=== PATIENT | female | born 1965 | race Caucasian/White ===

== ENCOUNTER → 2020-11-11 10:28 | Outpatient (BNVA) | payer MEDICARE, MEDICAID, SELFPAY | PROVIDERS: Family Provider Family Medicine; PCP Family Medicine; Visit Provider Family Medicine | DX: E01.0 Iodine-deficiency related diffuse (endemic) goiter (principal) | CPT/HCPCS: 80053; 84439; 84443; 84480; 85025 ==

== ENCOUNTER → 2020-11-12 09:52 | Outpatient (BNVA) | payer MEDICARE, MEDICAID, SELFPAY | PROVIDERS: Family Provider Family Medicine; PCP Family Medicine; Visit Provider Family Medicine | DX: E01.0 Iodine-deficiency related diffuse (endemic) goiter (principal); D64.9 Anemia, unspecified; F17.219 Nicotine dependence, cigarettes, with unspecified nicotine-induced disorders | CPT/HCPCS: 82728; 83550 ==

== ENCOUNTER 2020-11-23 10:45 | Outpatient (CLI) | payer MEDICARE, MEDICAID, SELFPAY ==
--- NOTE | 2020-11-23 11:00 | US_ITS ---
WS: [id number] ULTRASOUND THYROID TECHNIQUE: Ultrasound of the thyroid. CLINICAL INFORMATION: thyromegaly COMPARISON: None. FINDINGS: Thyroid: Right and left thyroid lobes are normal in size and echotexture. Slightly hypoechoic solid n odule left mid thyroid measuring 10 x 9 mm. Additional tiny cystic lesion measuring 3 x 2 mm in the l eft thyroid. Right thyroid lobe: 3.2 cm x 1.0 cm x 1.6 cm Left thyroid lobe: 3.0 cm x 1.0 cm x 1.1 cm. Isthmus: 0.3 mm. Cervical lymphadenopathy: A few prominent lymph nodes nonspecific but likely reactive US/US thyroid 76050 IMPRESSION: 1. Slightly hypoechoic solid left mid thyroid nodule measuring 10 x 9 mm. Devin mmend 12 month follow-up. 2. Additional tiny cystic lesion left thyroid measuring 3 x 2 mm likely incide ntal. 3. A few prominent cervical and submandibular lymph nodes likely reactive
== END 2020-11-23 10:46 | disposition home or self-care (01) ==
LOC: RAD 10:49
PROVIDERS: PCP Family Medicine; Visit Provider Family Medicine
DX: E01.0 Iodine-deficiency related diffuse (endemic) goiter (principal); E07.9 Disorder of thyroid, unspecified
CPT/HCPCS: 76536

== ENCOUNTER → 2020-12-30 09:42 | Outpatient (BNVA) | payer MEDICARE, MEDICAID, SELFPAY | PROVIDERS: PCP Family Medicine; Visit Provider Otolaryngology | DX: R05 Cough (principal) | CPT/HCPCS: 87635 ==

== ENCOUNTER 2021-01-03 06:00 | Day surgery (SDC) | payer MEDICARE, MEDICAID, SELFPAY ==
--- NOTE | 2021-01-03 10:29 | XRR_ITS ---
PROCEDURE INFORMATION: Exam: XR Chest Exam date and time: 01/03/2021 1:07 PM Age: 55 years old Clinical indication: Pre-operative exam; Cardiovascular screening and respiratory screening exam; Additional info: Preop TECHNIQUE: Imaging protocol: XR of the chest Views: 2 views. COMPARISON: No relevant prior studies available. FINDINGS: Lungs: The right hilum is elevated. The minor fissure is likely elevated as well. There is central opacity in the right upper lobe. The trachea is deviated to the right. There is a small right hemithorax compared to the left. Pleural spaces: No pleural effusion or pneumothorax. Heart/Mediastinum: The heart is not enlarged. There is a right hilar mass with suspected extension into the mediastinum as there is concentric narrowing of the right mainstem bronchus. Bones/joints: No acute osseous abnormality. Soft tissues: There is a left epicardial fat pad. XR/XR chest 2V* [id number] IMPRESSION: Suspect central malignancy involving the right hilum and adjacent mediastinum, with narrowing of the right mainstem bronchus, and secondary volume loss with or without postobstructive pneumonitis in the right upper lobe.
--- NOTE | 2021-01-03 10:29 | ECG_ITS ---
[facility] Test Date: 2021-01-03 Pat Name: Caridad Thakkar Department: Room: Gender: Female Senior Php Software Developer: : [id number] Requested By: Hugo Jarvis Order Number: [id number] Reading MD: RANDY PINON Measurements Intervals [place] Rate: 89 P: 65 LA: 165 QRS: 19 QRSD: 81 T: 62 QT: 344 QTc: 419 Interpretive Statements SINUS RHYTHM LEFT ATRIAL ENLARGEMENT [-0.15mV P WAVE IN V1/V2] No previous ECG available for comparison Electronically Signed On 01-03-2021 18:31:15 AGING ROOM OPERATOR by RANDY PINON [id number]
[2021-01-03 10:40] VITALS: BMI 17.6
--- NOTE | 2021-01-03 12:44 | ANES.PREANE2 ---
Pre-Anesthetic Assessment Pre-Anesthetic Assessment: Height/Weight: Height 1.6 m Weight 45.359 kg Proposed Procedure: Operation Date: 01/05/21 11:10 Proposed Procedures p Direct Laryngoscopy with Biopsies R49.0 20073(Not Applicable) - Hugo Pennington MD Was Beta Otilia taken within 24 hours: N/A Social: Social History: Tobacco and No alcohol Exam: Pre-Anes Outpt Exam: alert, oriented x 3 and regular rate & rhythm Additional Exam Findings (including area of procedure): rhonchi Airway: Submandibular: WNL Cervical ROM: WNL MP: 2 Dentition: Chipped Additional comments: very poor dentition, hoarseness Pulmonary: Pulmonary: COPD, Cough and BRAY Hepatic: Hepatic: Hepatitis (C) GI: GI: GERD Musc/skel: Comments: Chronic pain/opioid Neuropsych: Neuropsych: Anxiety and Depression Anesthetic Plan: ASA status: 3 Risk of > 500 ml blood loss (7ml/kg in children): No PFSH Anesthesia PFSH: Medical History Anxiety and depression Chronic low back pain Gastroesophageal reflux disease with ulceration Hepatitis C Microscopic hematuria Surgical History H/O section H/O: hysterectomy Family History Other CAD (coronary artery disease) Cancer Diabetes Social History Smoking and tobacco status: current every day smoker cigarettes Packs smoked per day: 0.25 Years cigarettes smoked: 40 Alcohol intake: former Former alcohol use details: 25 years Marital status: Current occupational status: disabled Special elida needs: No Data Anesthesia Cardiac Studies: No Data to Display
== END 2021-01-03 06:01 | disposition home or self-care (01) ==
PROVIDERS: PCP Family Medicine; Visit Provider Otolaryngology
DX: Z01.818 Encounter for other preprocedural examination (principal); R49.0 Dysphonia; J44.9 Chronic obstructive pulmonary disease, unspecified; Z86.19 Personal history of other infectious and parasitic diseases; K21.9 Gastro-esophageal reflux disease without esophagitis; G89.29 Other chronic pain; Z79.891 Long term (current) use of opiate analgesic; F41.9 Anxiety disorder, unspecified; F32.9 Major depressive disorder, single episode, unspecified; Z82.49 Family history of ischemic heart disease and other diseases of the circulatory system; Z83.3 Family history of diabetes mellitus; F17.210 Nicotine dependence, cigarettes, uncomplicated
CPT/HCPCS: 71046; 93005

== ENCOUNTER 2021-01-10 10:01 | Outpatient (CLI) | payer MEDICARE, MEDICAID, SELFPAY ==
[2021-01-10] MEDS: iohexol 300 mg/mL 100 mL Btl IV (10:17)
--- NOTE | 2021-01-10 10:30 | CT_ITS ---
WS: [id number] CT scan of the chest with IV contrast, additional two-dimensional coronal and sagittal reconstruction was performed. 01/10/2021 Clinical Data: right lung mass Comparison: Chest x-ray, 01/03/2021. DLP: 519.[address] scans at [facility] use at least one of these dose optimization techniques: automat ed exposure control; mA and/or kV adjustment per patient size (includes targeted exams where dose is matched to clinical indication); or iterative reconstruction. Findings: There is a 2.0 x 4.0 right upper lobe mass causing right upper lobe atelectasis. There is narrowing o f the right upper lobe bronchus and shift of the heart and mediastinum from left to right. There is a subcarinal soft tissue density which is probably an enlarged lymph node measuring 3.4 cm. The left l lucy shows no nodules, masses or effusions. The heart size is normal with no pericardial effusion. The pulmonary arterial system and thoracic aorta demonstrate no abnormalities or dilatations. No pneumon ia or pneumothorax is seen. There is no axillary adenopathy. The upper abdomen demonstrates no liver abnormalities, adrenal enlargement or upper abdominal abdomen adenopathy. The liver is only partly imaged. The visualization of the gallbladder, spleen and pancre as shows no abnormalities. The superior poles of the kidneys are unremarkable. Bones of the thorax demonstrate no metastatic lesions. CT/CT chest w con* [id number] Impression: 1. Right upper lobe mass causing peripheral atelectasis and shift of the heart and mediastinum from left to right most consistent with cancer of the lung. 2. Subcarinal adenopathy.
== END 2021-01-10 10:02 | disposition home or self-care (01) ==
LOC: RADWPI 10:02
PROVIDERS: PCP Family Medicine; Visit Provider Otolaryngology
DX: R91.8 Other nonspecific abnormal finding of lung field (principal); R59.0 Localized enlarged lymph nodes
CPT/HCPCS: 71260; Q9967

== ENCOUNTER 2021-01-28 10:00 | Outpatient (CLI) | payer MEDICARE, MEDICAID, SELFPAY ==
[2021-01-28 10:36] LABS: Basophils # 0.1 10^3/uL (0.0-0.1); Basophils % 0.7 %; Eosinophils # 0.2 10^3/uL (0.0-0.8); Hematocrit 36.4 % (37.0-47.0); Hemoglobin 11.3 g/dL (11.5-15.3); Lymphocytes # 1.3 10^3/uL (0.8-4.8); Lymphocytes % 17.1 %; Mean Corpuscular Hemoglobin 25.7 pg (28.0-34.0); Mean Corpuscular Volume 82.7 fL (81-99); Mean Platelet Volume 8.9 fL (7.4-10.4); Monocytes # 0.5 10^3/uL (0.2-0.9); Monocytes % 6.4 %; Neutrophils # 5.53 10^3/uL (1.8-7.7); Neutrophils % 73.4 %; Nucleated Red Blood Cells % 0 %; Platelet Count 382 10^3/cmm (130-400); Red Cell Distribution Width 15.8 % (12.1-15.1); White Blood Count 7.5 10^3/uL (4.0-10.0)
[2021-01-29 12:11] LABS: Alpha 1 Antitrypsin 275 mg/dL (83-199)
[2021-01-31 16:32] LABS: Alternaria Alternata (M6) Ige <0.10 kU/L; Alternaria Class 0; Bermuda Class 0; Bermuda Grass (G2) Ige <0.10 kU/L; Cat Dander (E1) Ige 0.42 kU/L; Cat Dander Class 1; Common Ragweed (Short) (W1) Ig <0.10 kU/L; D. Farinae Class 0; Dermatophagoides Class 0; Dermatophagoides Farinae (D2) <0.10 kU/L; Dermatophagoides Pteronyssinus <0.10 kU/L; Dog Dander (E5) Ige 0.76 kU/L; Dog Dander Class 2; Elm (T8) Ige <0.10 kU/L; Elm Class 0; English Plantain (W9) Ige <0.10 kU/L; English Plantain Class 0; House Dust (Hollister- Stier) 0.21 kU/L; House Dust Class 0/1; Immunoglobulin E 576 kU/L (<OR=114); Immunoglobulin E 586 kU/L (<OR=114); Johnson Grass (G10) Ige <0.10 kU/L; Johnson Grass Cl 0; June Grass Class 0; June Grass(Kentucky Blue) (G8) <0.10 kU/L; Lamb'S Quarters Class 0/1; Maple (Box Elder) (T1) Ige <0.10 kU/L; Maple Class 0; Meadow Fescue (G4) Ige <0.10 kU/L; Meadow Fescue Class 0; Mucor Racemosus Class 0; Oak (T7) Ige <0.10 kU/L; Oak Class 0; Orchard Grass (Cocksfoot) (G3) <0.10 kU/L; Penicillium Class 0; Penicillium Notatum (M1) Ige <0.10 kU/L; Perennial Rye Grass (G5) Ige <0.10 kU/L; Perennial Rye Grass Class 0; Ragweeed Class 0; Rough Marsh Elder (W16) Ige <0.10 kU/L; Rough Marsh Elder Class 0; Sweet Vernal Class 0; Sweet Vernal Grass (G1) Ige <0.10 kU/L; Timothy Grass (G6) Ige <0.10 kU/L; Timothy Grass Class 0
[2021-02-02 14:27] LABS: Aspergillus Fumigatus, Igg Ab, 7.5 mg/L (<=102)
== END 2021-01-28 10:01 | disposition home or self-care (01) ==
PROVIDERS: PCP Family Medicine; Visit Provider Internal Medicine Pulmonary Disease
DX: R06.02 Shortness of breath (principal); F17.200 Nicotine dependence, unspecified, uncomplicated; J44.9 Chronic obstructive pulmonary disease, unspecified
CPT/HCPCS: 36415; 82103; 82785; 85025; 86003; 87635

== ENCOUNTER 2021-02-01 14:30 | Outpatient (CLI) | payer MEDICARE, MEDICAID, SELFPAY ==
--- NOTE | 2021-02-01 14:49 | PFTS_ITS ---
Date of Study:02/01/21 Date of Dictation: MECHANICS: Forced vital capacity (FVC) is reduced. Forced expiratory volume in one second (FEV1) is reduced. FEV1/FVC is reduced. FLOW VOLUME LOOP: Reduced flow at all lung volumes with scooping. LUNG VOLUMES: Total lung capacity (TLC) is normal. Residual volume (RV) is increased. DIFFUSING CAPACITY FOR CARBON MONOXIDE: Moderately reduced. INTERPRETATION: The pulmonary function tests are consistent with moderate airflow obstruction. There is no significant postbronchodilator response. Lung volumes are consistent with air trapping. Gas exchange (DLCO) is moderately reduced. MTDD
== END 2021-02-01 14:31 | disposition home or self-care (01) ==
LOC: RT 14:33
PROVIDERS: PCP Family Medicine; Visit Provider Internal Medicine Pulmonary Disease
DX: J45.42 Moderate persistent asthma with status asthmaticus (principal)
CPT/HCPCS: 94060; 94726; 94729; J7611

== ENCOUNTER 2021-02-03 05:49 | Day surgery (SDC) | payer MEDICARE, MEDICAID, SELFPAY ==
[2021-02-01 12:13] VITALS: BMI 18.6
[2021-02-03] VITALS (9 sets, daily range): BP systolic 97–132; BP diastolic 61–77; PULSE 81–108; RESP 12–20; TEMP 36.6–37.2; O2SAT 93–98
[2021-02-03] MEDS: sodium chloride 0.9% 1,000 ML 30 ML IV (06:31)
--- NOTE | 2021-02-03 06:41 | ANES.PREANE2 ---
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 Bilateral Proposed Procedure: Operation Date: 02/03/21 07:00 Proposed Procedures p Ebus(Not Applicable) - Bipneena William MD Familial anesthetic complications: None Was Beta Otilia taken within 24 hours: N/A Was Clonidine taken within 24 hours: N/A Last intake: Intake Last Liquid Date 02/02/21 Last Liquid Time 23:00 Last Solid Date 02/02/21 Last Solid Time 18:30 Social: Social History: Tobacco and No alcohol Exam: Pre-Anes Outpt Exam: alert, oriented x 3, clear to auscultation bilaterally and regular rate & rhythm Airway: Cervical ROM: WNL MP: 2 Dentition: Chipped and Other (poor dentition) Additional comments: ENT scope shows swollen irregular vocal cords, glidescope Pulmonary: Pulmonary: COPD Comments: RUL lesion w/ L -> R mediastinal shift, no difficulty breathing laying flat Hepatic: Hepatic: Hepatitis (hep C) GI: GI: GERD Musc/skel: Comments: chronic pain on methadone Anesthetic Plan: ASA status: 4 Anesthesia: General Other: Glidescope Risk of > 500 ml blood loss (7ml/kg in children): No Other Pertinent Information: Patient complained her R leg was numb suddenly, after placing IV, and stated she had poor circulation. Strong pulses were palpated in the feet (dorsalis pedis) and posterior tibial. Meds/Allergies Current Medications: Current Medications Generic Name Dose Route Start Last Admin Trade Name Freq PRN Reason Stop Dose Admin Sodium Chloride 1,000 mls @ 30 ml s/hr 02/03/21 06:00 02/03/21 06:31 Sodium Chloride 0.9% IV 02/04/21 05:59 30 mls/hr .Q24H TANVI Administration PFSH Anesthesia PFSH: Medical History (Updated 01/24/21 @ 14:42 by Reymundo Murillo MD) Anxiety and depression Chronic low back pain Gastroesophageal reflux disease with ulceration Hepatitis C Microscopic hematuria Surgical History H/O section H/O: hysterectomy Family History Other CAD (coronary artery disease) Cancer Diabetes Social History Smoking and tobacco status: current every day smoker cigarettes Packs smoked per day: 0.50 Years cigarettes smoked: 40 Quit status (tobacco): considering quitting Second hand smoke exposure: Yes Smoking risk assessment/counseling performed?: Yes Alcohol intake: former Former alcohol use details: 25 years Lives independently: Yes Household members: spouse Housing: House Marital status: Life Partner service: No Current occupational status: disabled Pets and animals: Yes History of recent travel: No Current gender identity: Female Special elida needs: No Data Anesthesia Cardiac Studies: No Data to Display
--- NOTE | 2021-02-03 06:52 | P.HP_ITS ---
Same Day Surgery H&P Indication for Procedure/HPI DATE OF PROCEDURE: February 03, 2021 CHIEF COMPLAINT/INDICATIONFOR SURGICAL PROCEDURE: This is a 55-year-old lady coming in for bronchoscopic evaluation for suspected lung cancer. 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 Operation Date: 02/03/21 07:00 Proposed Procedures p Ebus(Not Applicable) - Sarah William MD This is a 55-year-old lady who was referred to me for bronchoscopic evaluation after she was recently found to have right upper lobe lung mass with possible endobronchial lesion and significant midsternal hilar lymphadenopathy. The patient has an extensive history of smoking. Medications/Allergies* Home Medications Medication Instructions Recorded Confirmed Type methadone 40 mg soluble tablet 90 mg PO DAILY tab 04/07/20 02/01/21 History cetirizine 10 mg capsule 10 mg PO DAILY 10/28/20 02/01/21 History diphenhydramine HCl 25 mg tablet 25 mg PO QID PRN 10/28/20 02/01/21 History omeprazole 20 mg capsule,delayed 20 mg PO DAILY 10/28/20 02/01/21 History release Allergies/Adverse Reactions Allergy/AdvReac Type Severity Reaction Status Date / Time latex Allergy itching Verified 02/03/21 06:02 azithromycin [From Zithromax] AdvReac Mild unknown Verified 02/03/21 06:02 nalbuphine [From Nubain] AdvReac Mild hives Verified 02/03/21 06:02 Sulfa (Sulfonamide AdvReac Mild unknown Verified 02/03/21 06:02 Antibiotics) Current Medications: Generic Name Dose Route Start Last Admin Trade Name Freq PRN Reason Stop Dose Admin Sodium Chloride 1,000 mls @ 30 mls/hr 02/03/21 06:00 02/03/21 06:31 Sodium Chloride 0.9% IV 02/04/21 05:59 30 mls/hr .Q24H TANVI Administration Pertinent History/Comorbid Conditions* Medical History (Updated 01/24/21 @ 14:42 by Reymundo Murillo MD) Anxiety and depression Chronic low back pain Gastroesophageal reflux disease with ulceration Hepatitis C Microscopic hematuria Surgical History (Updated 04/07/20 @ 09:55 by Mallory Gutiérrez DO) H/O section H/O: hysterectomy Family History (Updated 04/07/20 @ 09:50 by Dora Hernandez LPN) Diabetes CAD (coronary artery disease) Cancer Social History Smoking and tobacco status: current every day smoker cigarettes Packs smoked per day: 0.50 Years cigarettes smoked: 40 Quit status (tobacco): considering quitting Second hand smoke exposure: Yes Smoking risk assessment/counseling performed?: Yes Alcohol intake: former Former alcohol use details: 25 years Lives independently: Yes Household members: spouse Housing: House Marital status: Life Partner service: No Current occupational status: disabled Pets and animals: Yes History of recent travel: No Current gender identity: Female Special elida needs: No Pertinent Exam Findings alert, oriented x 3, clear to auscultation bilaterally and regular rate & rhythm Recommendations Surgery/Procedure today Coding Level of Care Code Acute Instrumentation Designer for Dunia Moore
[2021-02-03] MEDS: lidocaine 1% INJ 20 mL SUBCUT (07:40)
--- NOTE | 2021-02-03 08:09 | P.PCN_ITS ---
PACU note PACU note: VSS, Good respiratory effort, report to ADULT SERVICES LIBRARIAN Post-Anesthesia Exam: awake
--- NOTE | 2021-02-03 08:09 | PM.PACU ---
PACU note PACU note: VSS, Good respiratory effort, report to HAULAGE ENGINE OPERATOR Post-Anesthesia Exam: awake
--- NOTE | 2021-02-03 08:34 | P.OP_ITS ---
Operative Report Date of procedure: February 03, 2021 Pre-op Diagnosis: Suspected lung cancer Post-op diagnosis: same Brief History: This is a 55-year-old lady with recently identified right upper lobe lung mass coming in for bronchoscopic evaluation and staging of lung cancer. Procedure: Name of the procedure: Bronchoscopy with inspection of the airway, possible bronchoalveolar lavage, endobronchial biopsies, transbronchial biopsies, endobronchial ultrasound-guided transbronchial needle aspiration of lymph nodes and control of bleeding. Indication: Right upper lobe lung mass with mediastinal hilar lymphadenopathy Anesthesia: General anesthesia. Local anesthesia: The indira in the right and left mainstem bronchi were anesthetized with 1% lidocaine, 3 mL. Description of the procedure: The procedure was explained to the patient and the consent was obtained. The patient was brought to the OR. The patient underwent endotracheal intubation for general anesthesia. Following induction of general anesthesia, the bronchoscope was advanced through the ET tube. The lower trachea appeared to be mildly erythematous, no endotracheal lesion was seen. The indira was splayed. The indira, the right and left mainstem bronchi are anesthetized with 1% lidocaine. In a systematic manner bilateral bronchial tree was then examined. The bronchoscope was advanced into the left mainstem br onchus. There was no erythema,mucus or areas of cobblestoning. The left upper lobe, lingula and left lower lobe bronchi were examined up to the third subsegmental level and no abnormalities were identified. The bronchoscope was then introduced into the right mainstem bronchus. There was visible mucosal irregularity starting very close to the indira there was also narrowing of the right mainstem bronchus. The mucosal lesion bled very easily to touch. This was consistent with malignancy. The bronchoscope was not used to examine every segment in the right lung due to concerns of bleeding. The endobronchial ultrasound was introduced through the ET tube. Mediastinal and hilar lymphadenopathy was identified with the ultrasound. Fine-needle aspiration was performed from station 7 lymph nodes. Multiple samples were obtained. Samples: 1. The fine-needle aspiration from station 7 lymph node was sent for histopathology. Complications: There was no immediate complications.
--- NOTE | 2021-02-03 13:29 | ANE.PACU2 ---
Inpatient post-anesthesia follow up: Airway intact: Yes Vital signs: Temperature 98.0 F Pulse Rate 86 Respiratory Rate 18 Blood Pressure 132/73 Pulse Oximetry 98 Oxygen Delivery Me thod Room Air Oxygen Flow Rate 8 Fraction of Inspir ed Oxygen Hydration adequate: Yes Nausea and vomiting: No Pain level: 2 Mental status: Baseline
[2021-02-11 08:56] LABS: PD-L1 (Clone 22C3) by IHC BBPL See Report
== END 2021-02-03 09:09 | disposition home or self-care (01) ==
PROVIDERS: PCP Family Medicine; Visit Provider Internal Medicine Critical Care Medicine
PROC: BB4BZZZ Ultrasonography of Pleura (ICD-10-PCS; principal; 2021-02-03 07:00)
DX: C34.90 Malignant neoplasm of unspecified part of unspecified bronchus or lung (principal); C77.9 Secondary and unspecified malignant neoplasm of lymph node, unspecified; J44.9 Chronic obstructive pulmonary disease, unspecified; Z86.19 Personal history of other infectious and parasitic diseases; K21.9 Gastro-esophageal reflux disease without esophagitis; F41.9 Anxiety disorder, unspecified; F32.9 Major depressive disorder, single episode, unspecified; Z82.49 Family history of ischemic heart disease and other diseases of the circulatory system; Z83.3 Family history of diabetes mellitus; F17.210 Nicotine dependence, cigarettes, uncomplicated; Z79.891 Long term (current) use of opiate analgesic; G89.29 Other chronic pain; M54.9 Dorsalgia, unspecified
CPT/HCPCS: 31625; 31652; 80500; 88305; 88342; J1100; J2370; J2405; J2704; J2710; J3010; J3490; J7030

== ENCOUNTER 2021-02-09 11:57 | Outpatient (CLI) | payer MEDICARE, MEDICAID, SELFPAY ==
[2021-02-09 14:28] LABS: Basophils # 0.1 10^3/uL (0.0-0.1); Basophils % 1.1 %; Eosinophils # 0.4 10^3/uL (0.0-0.8); Eosinophils % 4.9 %; Hematocrit 35.6 % (37.0-47.0); Lymphocytes # 2.3 10^3/uL (0.8-4.8); Lymphocytes % 31.3 %; Mean Corpuscular HGB Conc 30.9 g/dL (30.0-36.0); Mean Corpuscular Hemoglobin 25.9 pg (28.0-34.0); Mean Corpuscular Volume 83.8 fL (81-99); Mean Platelet Volume 8.9 fL (7.4-10.4); Monocytes # 0.6 10^3/uL (0.2-0.9); Monocytes % 8.4 %; Neutrophils # 3.96 10^3/uL (1.8-7.7); Nucleated Red Blood Cells % 0 %; Platelet Count 376 10^3/cmm (130-400); Red Blood Count 4.25 10^6/uL (4.1-5.3); Red Cell Distribution Width 16.2 % (12.1-15.1); White Blood Count 7.3 10^3/uL (4.0-10.0)
[2021-02-09 15:05] LABS: Alanine Aminotransferase 10 U/L (0-33); Albumin Level 4.4 g/dL (3.5-5.2); Alkaline Phosphatase 119 IU/L (35-105); Anion Gap 14.9 (5-19); Aspartate Amino Transferase 11 U/L (0-32); Blood Urea Nitrogen 13 mg/dL (6-20); Carbon Dioxide 26 mmol/L (22-29); Chloride 97 mmol/L (98-107); Globulin 3.3 g/dL (1.3-4.6); Glomerular Filtration Rate 86.2 mL/min (90-130); Glucose 78 mg/dL (65-115); Osmolality Calculated 277 mOsm/kg (285-295); Potassium 3.9 mmol/L (3.5-5.1); Sodium 134 mmol/L (136-145); Total Bilirubin 0.2 mg/dL (0.15-1.2); Total Protein 7.7 g/dL (6.6-8.7)
--- NOTE | 2021-02-09 20:00 | ONC CON_ITS ---
Dr. Tadeo New Patient Note Patient: Caridad Thakkar Unit #: [id number]: 1965 Dicatated By: Sean Tadeo M.D.Date of Visit: Feb 09, 2021 Onc MED New Patient/Consult Referring Physician: Reymundo Murillo Chief Complaint: Lung cancer. 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 She had presented initially to Dr. Pennington with complaints of swelling in her throat. Her chest x-ray showed elevated right hilum in association with a central opacity in the right upper lobe. The findings were suspicious for central malignancy involving the right hilum and adjacent mediastinum. Further evaluation with chest CT on 01/10/2021 showed a 2.0 x 4.0 right upper lobe mass with associated right upper lobe atelectasis. There was narrowing of the right upper lobe with left shift of the mediastinum from left to right. A subcarinal soft tissue density measuring 3.4 cm was felt to be consistent with enlarged lymph node. The upper abdominal structures appeared unremarkable. She had pulmonary consultation with Dr. Murillo on 01/24/2021. Staging PET/CT on 01/29/2021 showed FDG avid right upper lobe mass measuring 2.1 x 3.7 cm, SUV 16.9, consistent with primary malignancy. There was evidence of local metastatic disease in the subcarinal territory measuring 3.0 x 2.2 cm with SUV 14.9. A right paratracheal node measuring 1.9 cm also was consistent with metastatic disease. A right lower lung lesion adjacent to the pericardium measuring 1.7 cm was FDG avid with SUV 11.6 cm, consistent with a satellite nodule. On 02/03/2021 she underwent bronchoscopy with EBUS. There was noted to be visible mucosal irregularity starting very close to the indira with narrowing of the right mainstem bronchus. The appearance was consistent with malignancy. Endobronchial and transbronchial biopsies were obtained. EBUS showed evidence of mediastinal and hilar lymphadenopathy. FNA biopsy was obtained from a station 7 lymph node. Pathology on the station 7 lymph node biopsy were positive for squamous cell carcinoma. The PD-L1 expression to IHC 22C3 was < 1%. She is seen now for further management of the lung cancer. She has not been feeling good. She says she feels hyper, but she is short of breath with any activity and she has very limited activity tolerance. She is still able to walk around and do some light work. ECOG score is 1. Her appetite has not been not good. She has had a weight loss of at least 25 pounds over the past 3 months. She had some fever a few months ago, but none since then. She does report feeling hot and having sweating every night. She has sore throat but she swallows okay. She was having cough for 2 straight months, but it has improved, and she now coughs just occasionally. She has had some pain in the chest area. She has had no hemoptysis. She does not complain of nausea. Her acid reflux is adequately managed with famotidine. She does have constipation. She complains that she does not void a lot. In the past she has had blood in her urine. She has pain in her shoulders and she has chronic back pain. She is on methadone, which she obtains through a methadone clinic. She has occasional headache and she occasionally has dizziness. She has had numbness in her arms and legs intermittently. She does report having anxiety and depression. Recently she has been having panic attacks. Past Medical History: Her medical history includes anxiety, chronic low back pain, chronic obstructive pulmonary disease (Treated), depression, gastroesophageal reflux disease, hepatitis C, and history of substance abuse. Past Surgical History: She underwent bronchoscopy with endobronchial and transbronchial biopsies and EBUS with FNA biopsies on 02/03/2021. Her other surgical/procedural history includes section in 1982, in 1986, and in 1992, hysterectomy with unilateral oophorectomy in 2006, and laparoscopic surgery for ovarian cyst in 1994. Medications: Albuterol Sulfate 1 - 2 Puff(s) (of 108 (90 base) mcg/act) Aerosol Powder, Breath Activated Inhalation q 4 hours PRN, Benadryl Allergy 2 (25 mg) Tablet Oral b.i.d., Cetirizine HCl 1 (10 mg) Tablet Oral daily, Famotidine 1 (20 mg) Tablet Oral four times a day PRN, Ibuprofen 1 (200 mg) Capsule Oral t.i.d. PRN, Iron 1 (325 (65 fe) mg) Tablet Oral daily, Methadone HCl 1 (90 mg) Tablet Soluble Oral daily, Mirtazapine 1 (30 mg) Tablet Oral daily, Senna S 1 (8.6-50 mg) Tablet Oral t.i.d., Symbicort 1 Puff(s) (of 160-4.5 mcg/act) Aerosol Inhalation b.i.d. Allergies: Azithromycin, Latex, Nalbuphine HCl, and Sulfa Antibiotics. Social History: Ms. Thakkar is and she is a disabled. She has a history of smoking for 40 years, previously up to 1-1/2 packs of cigarettes daily. She is now down to smoking 1/2 pack/day. She has a history of heavy drinking. She quit 17 years ago. She had used IV drugs at around age 15 or 16. She subsequently developed opiate dependence. She is now attending a methadone clinic. Family History: Father of stroke at age 75. Mother had breast cancer and pancreatitis. She also had diabetes. She at age 34. One brother and 2 sisters are in good health. A son at age 29, apparently due to accidental overdose. Review Of Symptoms: Constitutional - She has limited activity tolerance, but she is able to walk around and do light work at home. She does not have good appetite. She has had a weight loss of at least 25 pounds over the past 3 months. She had a little fever a few months ago, but none recently. She has been getting hot and having sweating every night. ECOG score is 1, Eyes - She has had some decline in visual acuity, ENMT - No hearing loss. She does have tinnitus and she complains that her ears hurt. No sinus congestion/drainage. No mouth sores. She does complain of sore throat. No difficulty swallowing, Hematologic/Lymphatic - No abnormal bruising or bleeding, Respiratory - She is short of breath with any activity. She was having bad cough for 2 months straight, but she now coughs just occasionally. No pleuritic pain or hemoptysis, Cardiovascular - She has some chest pain. No palpitations, Gastrointestinal - No nausea or vomiting. Her acid reflux is adequately managed with famotidine. No diarrhea. She has constipation. No blood in the stool or black stools, Genitourinary (F) - She has not have a lot of urine output. In the past she has had blood in her urine. No dysuria or urinary frequency. No urgency or incontinence, Musculoskeletal - She has pain in her shoulders and she has chronic back pain. She is on disability, Integumentary - No skin rash, Neurologic - She has headache occasionally and she occasionally has dizziness. She has numbness intermittently in her arms and legs. No other focal neurologic symptoms, Psychiatric - She has anxiety and depression. She has chronic insomnia. Vital Signs: Performed on Feb 09, 2021 13:07: 10, 4, 19.02, 1.45 sq.m, 62 in, 95 % (LOW), 91 /min, 18 /min, 100/68 mm(hg), 97.3 F (LOW), and 104 lbs (HIGH). Physical Examination: Constitutional - She appears chronically ill, Eyes - Sclerae nonicteric. Conjunctivae clear, ENMT - No lesions noted in the oral cavity, Neck - No mass or thyromegaly, Hematologic/Lymphatic - No cervical, clavicular, or axillary adenopathy, Respiratory - Lungs show diminished breath sounds bilaterally. There are coarse upper airway sounds on the right, Cardiovascular - Heart rhythm is regular. There is a I/ systolic murmur. There is no gallop or rub noted, Abdomen - Soft and non-tender. Liver and spleen are not enlarged. There is no abdominal mass or ascites noted and there is no inguinal adenopathy, Back/Spine - No spine or CVA tenderness noted, Extremities - No edema. Pedal pulses are palpable bilaterally, Integumentary - No rashes. No suspicious skin lesions noted, Neurologic - No focal neurologic deficits noted. Lab/Imaging: Laboratory studies from October 2020 included CBC showing hemoglobin 10.8 g, white blood cell count 8000, and platelet count 516,000. Comprehensive metabolic profile showed borderline renal function with BUN 12 and creatinine 1.1 mg/dL. The bilirubin and liver enzymes were normal. TSH was normal at 0.92 ???IU/mL. The serum iron was low at 21 mcg/dL with transferrin saturation 7.1%. Problem List: 1. Squamous cell carcinoma involving the upper lobe of the right lung, by clinical evaluation stage IIIB (T4, N2, M0). She has associated right upper lobe atelectasis. 2. Iron deficiency anemia. 3. Chronic pain for which she is on methadone, administered through methadone clinic. 4. She has history of substance abuse and opiate addiction. 5. COPD. 6. GERD. 7. History of hepatitis C, untreated. 8. Anxiety and depression. She has associated panic attacks. Problems Addressed with this Encounter and Plan: 1. 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 She has associated right upper lobe atelectasis. She underwent bronchoscopy/EBUS on 02/03/2021. She has biopsy-proven involvement in a subcarinal lymph node. There is a suspected satellite nodule in the right lower lobe by PET/CT. I did review the PET/CT images with the patient. We discussed the pathology results and the clinical implications. I also reviewed the PET/CT images with Dr. Chaves, and it does appear that the primary tumor and satellite nodule can be encompassed within radiation field. As such, she is recommend undergo chemoradiation for primary treatment. She is advised that this treatment is not going to be curable. However, depending on the response to the chemoradiation she also may be eligible for maintenance immunotherapy. I reviewed anticipated side effects with the treatment, which will include radiation concurrently with weekly carboplatin/paclitaxel chemotherapy. These may include nausea/vomiting, alopecia, fatigue, low blood counts, and neuropathy, among others, including the potential for esophagitis with the radiation. She will require placement of Port-A-Cath venous access device for the chemotherapy, and that will be arranged now. She needs to complete staging with brain MRI, and she will need to see Dr. Chaves for radiation oncology consultation. I anticipate starting treatment as soon as her radiation planning is completed. In the meantime, she has had significant weight loss, she will be given a prescription for dronabinol 5 mg twice daily. 2. She has iron deficiency anemia. She has poor tolerance for oral iron due to her constipation. Her laboratory studies will be repeated today, and if they are consistent with iron deficiency she will be given parenteral iron replacement with Injectafer or Feraheme, subject to verification of insurance coverage. 3. She has anxiety and depression. She has associated panic attacks. Management is problematic, as she is on a high dose of methadone and she would not be suitable for use of benzodiazepine class medications. She describes having poor tolerance or lack of benefit previously with medications in the antidepressant class and with buspirone. 4. She has history of untreated hepatitis C. With her chemotherapy and radiation there is a risk that this can be reactivated. As such, I will check her hepatitis C genotype and viral load. Signed By: Sean Tadeo M.D. <<Signature on File>>
[2021-02-10 12:52] LABS: HEP C RNA Viral Load Quant <1.18 NOT DETECTED Log IU/mL (NOT DETECTED); HEP C RNA Viral Load Quant <15 NOT DETECTED IU/mL (NOT DETECTED)
[2021-02-14 21:33] LABS: Hepatitis C Genotype RNA NOT DETECTED
== END 2021-02-09 11:58 | disposition home or self-care (01) ==
PROVIDERS: PCP Family Medicine; Visit Provider Internal Medicine Medical Oncology
DX: C34.11 Malignant neoplasm of upper lobe, right bronchus or lung (principal); J98.11 Atelectasis; D50.9 Iron deficiency anemia, unspecified; G89.4 Chronic pain syndrome; F11.20 Opioid dependence, uncomplicated; J44.9 Chronic obstructive pulmonary disease, unspecified; K21.9 Gastro-esophageal reflux disease without esophagitis; F41.9 Anxiety disorder, unspecified; F32.9 Major depressive disorder, single episode, unspecified; F41.0 Panic disorder [episodic paroxysmal anxiety]; Z86.19 Personal history of other infectious and parasitic diseases; Z79.899 Other long term (current) drug therapy
CPT/HCPCS: 36415; 80053; 85025; 87522; 87902; 99205

== ENCOUNTER 2021-02-16 06:29 | Outpatient (CLI) | payer MEDICARE, MEDICAID, SELFPAY ==
[2021-02-16] MEDS: ferric carboxy (IVPB) 750 MG in sodium chloride 0.9% (100 ml) 100 ML 460 MG IV (14:50)
== END 2021-02-16 06:30 | disposition home or self-care (01) ==
PROVIDERS: PCP Family Medicine; Visit Provider Internal Medicine Medical Oncology
DX: D50.9 Iron deficiency anemia, unspecified (principal)
CPT/HCPCS: 96365; J1439

== ENCOUNTER → 2021-02-17 13:33 | Outpatient (BNVA) | payer MEDICARE, MEDICAID, SELFPAY | PROVIDERS: PCP Family Medicine; Visit Provider Surgery | DX: C34.90 Malignant neoplasm of unspecified part of unspecified bronchus or lung (principal); Z11.52 Encounter for screening for COVID-19 | CPT/HCPCS: 87635 ==

== ENCOUNTER 2021-02-22 06:05 | Outpatient (RCR) | payer MEDICARE, MEDICAID, SELFPAY ==
[2021-02-22] MEDS: ferric carboxy (IVPB) 750 MG in sodium chloride 0.9% (100 ml) 100 ML 460 MG IV (10:20)
--- NOTE | 2021-02-22 11:45 | MR_ITS ---
WS: [id number] MRI BRAIN WITH AND WITHOUT CONTRAST HISTORY: LUNG CA COMPARISON: CT 11/13/2015 TECHNIQUE: Multiplanar imaging performed through the brain with MultiHance 10 ml's IV. No acute infarcts are seen. Kurtz-white matter differentiation is well preserved. No prior infarcts or significant white matter abnormalities. No susceptibility artifacts or prior lacunar infarcts. Ventricles and extra-axial spaces are normal. Clivus and pituitary gland are normal. Visualized posterior fossa and brainstem are also normal. Postcontrast images are negative for masses or vascular malformations. Dural venous sinuses are normal. Paranasal sinuses: Well aerated with no significant disease. Mastoid air cells: Normal. Calvarium and scalp: Normal. MR/MR head wo/w con [id number] IMPRESSION: 1. No metastatic disease to the brain. 2. No prior infarct or significant white matter disease.
[2021-02-22] MEDS: gadobenate dimeglumine 20 mL vial IV (13:25)
== END 2021-02-25 23:59 | disposition home or self-care (01) ==
LOC: ONCMED 06:05
PROVIDERS: PCP Family Medicine; Visit Provider Internal Medicine Medical Oncology
DX: D50.9 Iron deficiency anemia, unspecified (principal); C34.11 Malignant neoplasm of upper lobe, right bronchus or lung
CPT/HCPCS: 70553; 96365; A9577; J1439

== ENCOUNTER → 2021-03-03 12:59 | Outpatient (BNVA) | payer MEDICARE, MEDICAID, SELFPAY | PROVIDERS: PCP Family Medicine; Visit Provider Surgery | DX: R91.8 Other nonspecific abnormal finding of lung field (principal) | CPT/HCPCS: 87635 ==

== ENCOUNTER 2021-03-07 06:16 | Outpatient (RCR) | payer MEDICARE, MEDICAID, SELFPAY ==
--- NOTE | 2021-03-07 13:36 | N.ONRAD NP_ITS ---
Radiation Oncology Consultation Patient Name: Caridad Thakkar Date of : 1965 Date of Service: 03/07/2021 Attending Physician: Rober Chaves M.D. Caridad Thakkar was seen in consultation this afternoon at the request of Sean Tadeo M.D. for consideration of thoracic radiotherapy in the management of a recently diagnosed non-small cell lung cancer. She was evaluated for chronic hoarseness in November. Hugo Pennington M.D. performed a flexible laryngoscopy that identified abnormal vocal cords with erythema and leukoplakia without nodules or polyps. A chest radiograph obtained on January 03, 2021 showed a right upper lobe opacity with tracheal deviation and a right hilar mass with narrowing of the right mainstem bronchus. A thoracic CT ordered on January 10, 2021 demonstrated a 2 cm x 4 cm right upper lobe mass associated with atelectasis and narrowing of the right upper lobe and bronchus and subcarinal lymphadenopathy. A PET CT completed on January 29, 2021 (directly visualized in [facility]) confirmed hypermetabolic activity within the right upper lobe mass (SUV 16.9), a right paratracheal lymph node, subcarinal lymphadenopathy, and a satellite lesion adjacent to the pericardium in the right lower lung (1.7 cm with an SUV 11.6). A bronchoscopy performed on February 03, 2021 revealed narrowing of the right mainstem bronchus and mucosal irregularity a biopsy of a station 7 lymph node diagnosed a CK 5/6 and p63 positive squamous cell carcinoma (pathology report personally reviewed in [email or web address]). PD -L1 TPS was less than 1%. MRI of the brain was negative for metastatic disease. Pulmonary function testing was consistent with moderate airflow obstruction with an FVC of 2.26 L (72% of predicted), a RV of 2.94 L (155% of predicted), an FEV1 of 1.46 L (58% of predicted), and a DLCO of 9.5 ml/min/mmHg (41% of predicted). The patient was evaluated for definitive thoracic radiotherapy. I discussed with Ms. Thakkar the AJCC clinical stage IIIB (T4N2) lung cancer corresponding to her disease. I also reviewed the National Comprehensive Cancer Network Guidelines for concurrent chemoradiotherapy in the management of locally advanced lung cancer established by the classic study RTOG 9410 comparing sequential versus concurrent chemoradiotherapy that demonstrated an overall survival advantage for the concurrent chemoradiotherapy regimen I anticipate a six week course of thoracic radiotherapy. A computed tomographic radiotherapy planning scan in the treatment position will be performed and co-registered to the patient's staging PET CT scan to identify the gross tumor volume. The potential toxicities of thoracic radiotherapy were reviewed. The patient has verbalized understanding would like to proceed as recommended. The patient???s treatment plan was discussed with Sean Tadeo M.D. Signed by: Dr. Rober Chaves 03/07/2021 1:35:04 PM
== END 2021-03-08 06:00 | disposition home or self-care (01) ==
LOC: ONCMED 06:16
PROVIDERS: PCP Family Medicine; Visit Provider Radiology Radiation Oncology
DX: C34.11 Malignant neoplasm of upper lobe, right bronchus or lung (principal); J98.11 Atelectasis; R59.0 Localized enlarged lymph nodes; Z79.899 Other long term (current) drug therapy
CPT/HCPCS: 99205

== ENCOUNTER 2021-03-08 05:48 | Day surgery (SDC) | payer MEDICARE, MEDICAID, SELFPAY ==
[2021-03-07 17:27] VITALS: BMI 18.0
[2021-03-08] VITALS (7 sets, daily range): BP systolic 100–126; BP diastolic 63–83; PULSE 78–91; RESP 12–19; TEMP 36.6–36.8; O2SAT 96–100
--- NOTE | 2021-03-08 | SCC_ITS ---
Procedure Done: 1. Placement of PowerPort catheter right internal jugular vein 2. Fluoroscopic guidance and interpretation for placement of catheter 3. Ultrasound guidance to access the right internal jugular vein 19.5 seconds of fluoroscopic guidance, for a cumulative dose of 1.8 mGy, was provided to Dr. Agrawal by the radiology department. C-arm images of the chest were saved for the patient's permanent record. [facility]
--- NOTE | 2021-03-08 05:55 | SC_ITS ---
WS: [id number] C-ARM RADIOGRAPHS CHEST; 2 IMAGES HISTORY: Powerport Placement COMPARISON: None available. Intraoperative imaging during RIGHT Port-A-Cath placement. SC/C-arm FL for CVA [id number] IMPRESSION: Intraoperative imaging during Port-A-Cath placement.
--- NOTE | 2021-03-08 06:23 | W.PM.OPSUD ---
Surgery/Procedure H&P Update DATE OF PROCEDURE: March 08, 2021 DATE H&P PERFORMED: 02/16/21 H&P UPDATE INFORMATION: I have reviewed H&P completed within last 30 days, I have examined patient prior to procedure and No changes to prior documentation PREOP DIAGNOSIS: lung cancer PRIMARY INDICATION FOR PROCEDURE: The same PLANNED PROCEDURE: Operation Date: 03/08/21 07:00 Proposed Procedures p Portacath Placement 10708 c34.9(Not Applicable) - Eusebio Agrawal MD
--- NOTE | 2021-03-08 06:36 | ANES.PREANE2 ---
Pre-Anesthetic Assessment Pre-Anesthetic Assessment: Height/Weight: Height 1.6 m Weight 46.266 kg Temp Pulse Resp BP Pulse Ox 97.9 F 91 12 100/78 96 03/08/21 06:05 03/08/21 06:05 03/08/21 06:05 03/08/21 06:05 03/08/21 06:05 Preop Diagnosis: lung cancer Proposed Procedure: Operation Date: 03/08/21 07:00 Proposed Procedures p Portacath Placement 40483 c34.9(Not Applicable) - Eusebio Agrawal MD Familial anesthetic complications: None Was Beta Otilia taken within 24 hours: N/A Was Clonidine taken within 24 hours: N/A Last intake: NPO > 8hrs Social: Social History: Tobacco and No alcohol Exam: Pre-Anes Outpt Exam: alert, oriented x 3, clear to auscultation bilaterally and regular rate & rhythm Airway: Cervical ROM: WNL MP: 3 Dentition: Chipped Additional comments: hoarseness - swollen vocal cords Pulmonary: Pulmonary: COPD and Sleep apnea Comments: RUL Mass Hepatic: Hepatic: Hepatitis (hep c) GI: GI: GERD Musc/skel: Comments: chronic pain (methadone) - neuropathy (sciatica) Anesthetic Plan: ASA status: 4 Anesthesia: MAC Risk of > 500 ml blood loss (7ml/kg in children): No PFSH Anesthesia PFSH: Medical History Anxiety and depression Chronic low back pain Gastroesophageal reflux disease with ulceration Hepatitis C Microscopic hematuria Surgical History H/O section H/O: hysterectomy Family History Other CAD (coronary artery disease) Cancer Diabetes Social History (Updated 02/17/21 @ 13:48 by Roberto Elliott LPN) Smoking and tobacco status: current every day smoker cigarettes Years cigarettes smoked: 40 Quit status (tobacco): considering quitting Second hand smoke exposure: Yes Smoking risk assessment/counseling performed?: Yes Alcohol intake: former Former alcohol use details: 25 years Lives independently: Yes Household members: spouse Housing: House Marital status: Life Partner service: No Current occupational status: disabled Pets and animals: Yes History of recent travel: No Current gender identity: Female Special elida needs: No Data Anesthesia Cardiac Studies: No Data to Display
[2021-03-08] MEDS: sodium chloride 0.9% 1,000 ML 30 ML IV (06:45)
[2021-03-08] MEDS: fentaNYL 50 mcg/mL INJ 2mL IVP (06:46)
[2021-03-08] MEDS: ceFAZolin 1,000 MG in sodium chloride 0.9% (plus) 50 ML 100 MG IV (06:56)
[2021-03-08] MEDS: heparin, porcine 1,000 unit/mL INJ 10 mL 10000 UNIT IRRIGATION (07:38)
[2021-03-08] MEDS: lidocaine 2% INJ 20 mL INJECTION (07:39)
--- NOTE | 2021-03-08 07:41 | P.OP_ITS ---
Operative Report Date of procedure: March 08, 2021 Pre-op Diagnosis: lung cancer Post-op diagnosis: same Post-op Findings: Difficulty accessing left subclavian vein and arterial blood retrieved from right side. Procedure Done: 1. Placement of PowerPort catheter right internal jugular vein 2. Fluoroscopic guidance and interpretation for placement of catheter 3. Ultrasound guidance to access the right internal jugular vein Implants: Right internal jugular vein PowerPort Surgeon: Eusebio Agrawal Contracting Manager: seating and mobility technologist Grady Circulating nurse Deidre Crum Anesthesia: MAC (Jessica Snell) Estimated blood loss (mL): 10 Condition: stable Disposition: same day Brief History: 55 years old female patient with history of lung cancer. Full H&P and informed consent per chart. Procedure: Patient was identified in the holding area and taken to the operative room and placed in supine position IV propofol was given by the anesthesia provider ,both arms were tucked,Time-out was done verifying the patient's name/date of /planned procedure and destination after the procedure, all were in agreement. SCDs confirmed to be functioning, preoperative antibiotics administered per protocol, and beta zahraa protocol was confirmed, appropriate positioning of the patient was done by me. Medications were reviewed to assess for anticoagulant usage. Risks and benefits and prevention of central line associated blood stream infection (CLABSI) were discussed with the patient/CPOA, and a consent was obtained. Monitors were in place and monitored throughout the procedure. All necessary supplies were available prior to start. Hand hygiene was completed prior to starting. Maximum barrier technique was utilized including a sterile gown, sterile gloves with a hat and mask. Site was was prepped with [chlorhexidine] and a full body drape was placed. 5 mL of 2% lidocaine was injected into the skin with a 25 gauge needle. Prep& drape was done under the usual sterile technique, lidocaine 2% was injected at the site of the stick, started by left subclavian vein but unfortunately were not able to retrieve venous blood and attention was deviated towards the right subclavian vein yet arterial blood was retrieved. Pressure was held for 5 minutes and then I deviated my attention at this point to the right internal jugular vein under ultrasound guidance. A right Internal Juglar vein stick that retrieved venous blood was obtained from the first stick under ultrasound guidance and there was no evidence of intraluminal thrombosis, interpretation was done by me through the whole entire procedure, a guidewire was then threaded and under the guidance of fluoroscopy position was confirmed to be in the IVC and my interpretation, there was no PVC changes, at that point the guidewire was secured to the drapes with a hemostat and the needle was taken out. Attention was then deviated towards creation of a pocket for the port were lidocaine 2% was injected using an 15 blade knife skin incision was created at the right upper Chest ,dissection using the Bovie to create a pocket for the Port-A-Cath to be accommodated, hemostasis was secured, after the port being appropriately flushed it was inserted into the pocket and a tunneler was used to accommodate the catheter of the port cath to be delivered through the incision first created at the site of the stick, yet I had to create a transit incision at the root of the neck at the right side to the patient difficult anatomy , and then I was able to retrieve the catheter at the index site of the stick. At that point under fluoroscopy an estimated length was measured for the catheter and was cut at the designed level, followed by that a dilator with the sheath introduced onto the guidewire the dilator and the wire were retrieved and the catheter of the port was introduced via the sheath where it was peeled off and the catheter maintained to be in the SVC that was confirmed with fluoroscopy, and the fluoroscopy interpretation was done by me throughout the entire procedure. Multiple flushes of the port was done by diluted heparin and I was able to retrieve without difficulty venous blood as well as appropriate flushing was achieved. The port was kept in its place,3-0 Vicryl deep subdermal interrupted sutures, skin was then closed by 4-0 Monocryl as subcuticular closure. The stick site was closed by 4-0 Monocryl and Dermabond was used followed by dressing. Patient tolerated the procedure well was taken to the recovery area Count was correct at the end of the procedure I was present for the whole entire procedure
--- NOTE | 2021-03-08 07:47 | XRR_ITS ---
PROCEDURE INFORMATION: Exam: XR Chest Exam date and time: 03/08/2021 7:49 AM Age: 55 years old Clinical indication: Device placement; Other: Status post placement right internal jugular vein TECHNIQUE: Imaging protocol: XR of the chest. Views: 1 view. COMPARISON: CT chest w con* [id number] 01/10/2021 10:15 AM FINDINGS: Tubes, catheters and devices: Chest port/Mediport has been placed via the right jugular approach with the tip in the superior vena cava. Lungs: Mass in the right hilar region with postobstructive airspace disease right upper lobe. Mild volume loss with tenting of the hemidiaphragm. Pleural spaces: Unremarkable. No pleural effusion. No pneumothorax. Heart/Mediastinum: Unremarkable. No cardiomegaly. Bones/joints: Unremarkable. XR/XR chest 1V portable [id number] IMPRESSION: Mass in the right hilar region with postobstructive airspace disease right upper lobe. Mild volume loss with tenting of the hemidiaphragm.
--- NOTE | 2021-03-08 07:58 | P.PCN_ITS ---
PACU note PACU note: VSS, Good respiratory effort, report to METAL GRINDER Post-Anesthesia Exam: awake
--- NOTE | 2021-03-08 07:58 | PM.PACU ---
PACU note PACU note: VSS, Good respiratory effort, report to KILN TENDER Post-Anesthesia Exam: awake
--- NOTE | 2021-03-08 14:29 | ANE.PACU2 ---
Inpatient post-anesthesia follow up: Airway intact: Yes Vital signs: Temperature 98.2 F Pulse Rate 78 Respiratory Rate 18 Blood Pressure 101/63 Pulse Oximetry 100 Oxygen Delivery Me thod Room Air Oxygen Flow Rate Fraction of Inspir ed Oxygen Hydration adequate: Yes Nausea and vomiting: No Pain level: 1 Mental status: Baseline
== END 2021-03-08 09:03 | disposition home or self-care (01) ==
PROVIDERS: PCP Family Medicine; Visit Provider Surgery
PROC: (CPT 36561; principal; 2021-03-08 07:00)
DX: C34.90 Malignant neoplasm of unspecified part of unspecified bronchus or lung (principal); J44.9 Chronic obstructive pulmonary disease, unspecified; G47.30 Sleep apnea, unspecified; Z86.19 Personal history of other infectious and parasitic diseases; F17.210 Nicotine dependence, cigarettes, uncomplicated
CPT/HCPCS: 36561; 71045; 76000; 77001; 96365; 96374; C1788; J0690; J1644; J2250; J2704; J3010; J3490; J7030

== ENCOUNTER 2021-03-25 05:43 | Outpatient (RCR) | payer MEDICARE, MEDICAID, SELFPAY ==
--- NOTE | 2021-03-10 | CT_ITS ---
Radiation Therapy Planning CT images; total exam DLP: 277.26 mGy-cm MTDD
[2021-03-14 12:25] LABS: Basophils # 0.1 10^3/uL (0.0-0.1); Eosinophils # 0.1 10^3/uL (0.0-0.8); Eosinophils % 1.8 %; Hematocrit 35.7 % (37.0-47.0); Hemoglobin 11.3 g/dL (11.5-15.3); Lymphocytes # 1.4 10^3/uL (0.8-4.8); Mean Corpuscular HGB Conc 31.7 g/dL (30.0-36.0); Mean Corpuscular Hemoglobin 28.5 pg (28.0-34.0); Mean Corpuscular Volume 89.9 fL (81-99); Mean Platelet Volume 9.3 fL (7.4-10.4); Monocytes # 0.4 10^3/uL (0.2-0.9); Monocytes % 6.2 %; Neutrophils % 71.6 %; Nucleated Red Blood Cells % 0 %; Platelet Count 274 10^3/cmm (130-400); Red Blood Count 3.97 10^6/uL (4.1-5.3); Red Cell Distribution Width 18.6 % (12.1-15.1); White Blood Count 7.1 10^3/uL (4.0-10.0)
[2021-03-14 12:43] LABS: Alanine Aminotransferase 8 U/L (0-33); Albumin Level 3.9 g/dL (3.5-5.2); Anion Gap 12.9 (5-19); Aspartate Amino Transferase 10 U/L (0-32); Blood Urea Nitrogen 12 mg/dL (6-20); Calcium 8.2 mg/dL (8.5-10.5); Carbon Dioxide 26 mmol/L (22-29); Chloride 103 mmol/L (98-107); Glomerular Filtration Rate 86.2 mL/min (90-130); Glucose 94 mg/dL (65-115); Osmolality Calculated 286 mOsm/kg (285-295); Potassium 3.9 mmol/L (3.5-5.1); Sodium 138 mmol/L (136-145); Total Bilirubin 0.2 mg/dL (0.15-1.2); Total Protein 7.3 g/dL (6.6-8.7)
[2021-03-14 12:44] LABS: Alkaline Phosphatase 127 IU/L (35-105); Globulin 3.4 g/dL (1.3-4.6)
[2021-03-15] MEDS: sodium chloride 0.9% 250 ML 75 ML IV (10:01)
[2021-03-15] MEDS: famotidine 20 mg/2 mL INJ IVP (10:01)
[2021-03-15] MEDS: palonosetron 0.25 mg/5 mL SDV IVP (10:03)
[2021-03-15] MEDS: diphenhydrAMINE 50 mg/mL SDV 1mL 25 MG IVP (10:20)
[2021-03-15] MEDS: sodium chloride 0.9% (100 ml) 100 ML 400 ML (10:20)
--- NOTE | 2021-03-21 09:48 | ONCRAD TMN_ITS ---
Radiation Oncology Weekly Treatment Management Patient: Ariane Mclean MR#: [id number] : 1965 Attending Physician: Dr. Conner Early Date of Service: 03/21/2021 Referring Physician(s): Romaine Dye M.D. Diagnosis: C34.11 - Malignant neoplasm of upper lobe, right bronchus or lung, Diagnosed 02/03/2021 (Active) Stage IIIB, T4, N2, M0 Radiotherapy to date: Course: Lung 2020, Treatment Site: Lung Ca, Ref. ID: [id number], Energy: 6X, Dose/Fx (cGy): 200, #Fx: , Dose Correction (cGy): 0, Total Dose (cGy): 1,000, Start Date: 03/15/2021, Elapsed Days: 6 Reason for visit: The patient is being seen today as part of their regularly scheduled weekly on treatment visits to assess for acute toxicities from radiotherapy. Review of Systems: Tired last week and slept most of last Sunday and Sunday. Lives with prison boyfriend who just was also diagnosed with lung cancer here. They were not getting along well and now doing better together. She is now feeling better. She has more energy. Eating ok. No sore throat. Vital Signs: Performed on 03/21/2021 9:21 AM BMI - 18.62 kg/m2, Height - 62.00 in, Weight - 101.8 lbs, Temperature - 98.2 f, Pulse - 98, Respiration - 20, O2 Sat - 96 %, Pain - 0 and BP - 126/ 79 mm(hg). Physical Exam: omitted Imaging: Radiation therapy imaging related to accurate target localization (i.e. KV, MV and CBCT) was reviewed. Appropriate changes, if any, were made to ensure treatment accuracy. Plan: Good tolerance of treatment. Advised stopping smoking. Continue treatment as planned. Signed by: Dr. Conner Early 03/21/2021 9:47:01 AM
[2021-03-22 10:53] LABS: Basophils % 0.4 %; Hematocrit 35.5 % (37.0-47.0); Hemoglobin 11.5 g/dL (11.5-15.3); Lymphocytes # 0.2 10^3/uL (0.8-4.8); Lymphocytes % 7.4 %; Mean Corpuscular HGB Conc 32.4 g/dL (30.0-36.0); Mean Corpuscular Hemoglobin 28.4 pg (28.0-34.0); Mean Corpuscular Volume 87.7 fL (81-99); Mean Platelet Volume 9.7 fL (7.4-10.4); Monocytes % 0.4 %; Neutrophils # 2.48 10^3/uL (1.8-7.7); Neutrophils % 91.1 %; Nucleated Red Blood Cells % 0 %; Platelet Count 232 10^3/cmm (130-400); Red Blood Count 4.05 10^6/uL (4.1-5.3); Red Cell Distribution Width 17.6 % (12.1-15.1); White Blood Count 2.7 10^3/uL (4.0-10.0)
[2021-03-22 11:13] LABS: Alanine Aminotransferase 19 U/L (0-33); Albumin Level 4.5 g/dL (3.5-5.2); Alkaline Phosphatase 129 IU/L (35-105); Anion Gap 14.7 (5-19); Aspartate Amino Transferase 11 U/L (0-32); Blood Urea Nitrogen 15 mg/dL (6-20); Calcium 8.6 mg/dL (8.5-10.5); Carbon Dioxide 25 mmol/L (22-29); Chloride 99 mmol/L (98-107); Globulin 2.5 g/dL (1.3-4.6); Glomerular Filtration Rate 127.2 mL/min (90-130); Glucose 170 mg/dL (65-115); Osmolality Calculated 283 mOsm/kg (285-295); Potassium 4.7 mmol/L (3.5-5.1); Sodium 134 mmol/L (136-145); Total Bilirubin 0.2 mg/dL (0.15-1.2)
[2021-03-22] MEDS: sodium chloride 0.9% 250 ML 75 ML IV (13:30)
[2021-03-22] MEDS: diphenhydrAMINE 50 mg/mL SDV 1mL 25 MG IVP (13:32)
[2021-03-22] MEDS: palonosetron 0.25 mg/5 mL SDV IVP (13:33)
[2021-03-22] MEDS: famotidine 20 mg/2 mL INJ IVP (13:34)
--- NOTE | 2021-03-23 15:16 | ONC FU_ITS ---
[facility] Patient Note Patient: Caridad Thakkar Unit #: [id number]: 1965 Dictated By: Kirstin MilesDate of Visit: March 15, 2021 Onc MED Follow-Up/Prog Note Chief Complaint: Lung cancer. 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 She had presented initially to Dr. Pennington (ENT)with complaints of swelling in her throat. Her chest x-ray showed elevated right hilum in association with a central opacity in the right upper lobe. The findings were suspicious for central malignancy involving the right hilum and adjacent mediastinum. Further evaluation with chest CT on 01/10/2021 showed a 2.0 x 4.0 right upper lobe mass with associated right upper lobe atelectasis. There was narrowing of the right upper lobe with left shift of the mediastinum from left to right. A subcarinal soft tissue density measuring 3.4 cm was felt to be consistent with enlarged lymph node. The upper abdominal structures appeared unremarkable. She had pulmonary consultation with Dr. Murillo on 01/24/2021. Staging PET/CT on 01/29/2021 showed FDG avid right upper lobe mass measuring 2.1 x 3.7 cm, SUV 16.9, consistent with primary malignancy. There was evidence of local metastatic disease in the subcarinal territory measuring 3.0 x 2.2 cm with SUV 14.9. A right paratracheal node measuring 1.9 cm also was consistent with metastatic disease. A right lower lung lesion adjacent to the pericardium measuring 1.7 cm was FDG avid with SUV 11.6 cm, consistent with a satellite nodule. On 02/03/2021 she underwent bronchoscopy with EBUS. There was noted to be visible mucosal irregularity starting very close to the indira with narrowing of the right mainstem bronchus. The appearance was consistent with malignancy. Endobronchial and transbronchial biopsies were obtained. EBUS showed evidence of mediastinal and hilar lymphadenopathy. FNA biopsy was obtained from a station 7 lymph node. Pathology on the station 7 lymph node biopsy were positive for squamous cell carcinoma. The PD-L1 expression to IHC 22C3 was < 1%. She was seen by Dr Pacheco for further management of the lung cancer on 02/09/2021. Dr. Tadeo and Dr. Rober Chaves in radiation oncology reviewed the PET images and felt it appeared the primary tumor and satellite nodule can be encompassed within radiation field. She was recommended to undergo chemoradiation for primary treatment. She is advised that the treatment was not curable and that she may be eligible for maintenance immunotherapy once the chemo radiation has been completed. She did have MRI of the brain with and without contrast on February 22, 2021 with no evidence of metastatic disease to the brain. She was found to be iron deficient with a hemoglobin on February 09, 2021 of 11. She received 2 doses of Injectafer 1 week apart with the last one being on February 22, 2021. She was intolerant to oral iron due to significant constipation. She reported she had a history of untreated hepatitis C. A hepatitis profile was obtained on February 09, 2021 and hepatitis C genotype was nondetected. Mrs. Thakkar is here today to start her first dose of weekly carboplatin Taxol concurrent with daily radiation. She has no new concerns today. She has quite a bit of social anxiety with a significant at home which she suspects has brain mets and cancer. She states she is at a doctor today getting checked. She states she has chest pain when she has anxiety which has been having more anxiety but that is controlled with meds currently. She has been using lorazepam as needed up to 3 times a day. She states this helped significantly. She is had no new or worsening shortness of breath. She denies any hemoptysis. Her cough overall is better but she still coughs occasionally. She denies any palpitations. She has had no syncope or near syncopal episodes. She denies nausea or vomiting. She has constipation but states this is normal for her and is no worse than what it normally is. Her ECOG remains at 1. Past Medical History: Anxiety Chronic low back pain Chronic obstructive pulmonary disease (Treated) Depression Gastroesophageal reflux disease Hepatitis C History of substance abuse Past Surgical History: section in 1982, 1986, and in 1992 Bronchoscopy with endobronchial and transbronchial biopsies and EBUS/FNA biopsies in 2020 Hysterectomy with unilateral oophorectomy in 2006 Laparoscopic surgery for ovarian cyst in 1994 Allergies: Azithromycin, Latex, Nalbuphine HCl, and Sulfa Antibiotics. Medications: Albuterol Sulfate 1 - 2 Puff(s) (of 108 (90 base) mcg/act) Aerosol Powder, Breath Activated Inhalation q 4 hours PRN Benadryl Allergy 2 (25 mg) Tablet Oral b.i.d. Dexamethasone 5 Tablet (of 4 mg) Oral Famotidine 1 (20 mg) Tablet Oral four times a day PRN Ibuprofen 1 (200 mg) Capsule Oral t.i.d. PRN LORazepam 0.5 - 1 Tablet (of 1 mg) Oral t.i.d. PRN Methadone HCl 1 (90 mg) Tablet Soluble Oral daily Mirtazapine 1 (30 mg) Tablet Oral daily Omeprazole Magnesium 1 (20 mg) Tablet, enteric coated Oral daily Prochlorperazine Maleate 1 Tablet (of 10 mg) Oral q 4 hours PRN Senna S 1 (8.6-50 mg) Tablet Oral t.i.d. Symbicort 1 Puff(s) (of 160-4.5 mcg/act) Aerosol Inhalation b.i.d. Vitamin C 1 Capsule (of 500 mg) Oral daily Family History: Ms. Strongs mother at age 34: Breast Cancer, and Pancreatic Cancer, and hypertension, and osteoporosis. Ms. Thakkar's father at age 75: stroke. Ms. Thakkar has 1 brother who is alive. She has 2 sisters: 2 alive. Father of stroke at age 75. Mother had breast cancer and pancreatitis. She also had diabetes. She at age 34. One brother and 2 sisters are in good health. A son at age 29, apparently due to accidental overdose. Social History: Ms. Thakkar is single and she is a disabled. She is an occasional smoker who has smoked 1.0 pack/day for 40 years. She is a former drinker. She has indicated exposure to the following products: cigarettes and marijuana. Patient has now decreased her smoking to 6 cigarettes per day. She is disabled. She has a history of smoking for 40 years, previously up to 1-1/2 packs of cigarettes daily. She is now down to smoking 1/2 pack/day. She has a history of heavy drinking. She quit 17 years ago. She had used IV drugs at around age 15 or 16. She subsequently developed opiate dependence. She is now attending a methadone clinic. Review Of Symptoms: <See Above> Vital Signs: Performed on March 15, 2021 08:38 Height - 62.00 in Weight - 102.8 lbs (HIGH) BSA - 1.44 sq.m BMI - 18.80 Temperature - 97.7 F (LOW) Pulse - 118 /min (HIGH) Respiration - 18 /min BP - 129/76 mm(hg) O2 Sat - 96 % Pain - 0,1 - No physically strenuous activity, but ambulatory and able to carry out light or sedentary work (e.g. office work, light house work). (ECOG) Physical Examination: Constitutional Alert, oriented, no acute distress. Skin pink, warm and dry. Head Normocephalic; atraumatic. Eyes Conjunctivae and sclerae are clear and without icterus. Pupils are reactive and equal. ENMT No oral exudates, ulcers, masses, thrush or mucositis. Oropharynx clear. Tongue normal. Neck Supple without masses or thyromegaly. No jugular venous distension. Hematologic/Lymphatic No petechiae or purpura. No tender or palpable lymph nodes in the cervical or supraclavicular areas. Respiratory Lungs are clear to auscultation without rhonchi or wheezing. Cardiovascular Regular rate and rhythm of heart without murmurs,clicks, gallops or rubs. Chest Chest is symmetric without chest wall deformities. Venous access device insertion site is unremarkable. Abdomen Non-tender, non-distended, no masses or ascites. Good bowel sounds noted in all quads. No guarding or rebound tenderness. No pulsatile masses. Back/Spine Non-tender to palpation. Extremities No visible deformities, no cyanosis, clubbing or edema. Musculoskeletal No tenderness or swelling, normal range of motion without obvious weakness. Integumentary No rashes or lesions. Neurologic No sensory or motor deficits, normal cerebellar function, normal gait. Psychiatric Alert and oriented times three. Coherent speech. Verbalizes understanding of our discussions today. Laboratory:Test performed on March 22, 2021 10:25 Sodium 134 mmol/L Potassium 4.7 mmol/L Chloride 99 mmol/L CO2 25 mmol/L Anion Gap 14.7 BUN 15 mg/dL Creatinine 0.5 mg/dL Cr Clearance (Est) 90.8500 mL/min eGFR 127.2 mL/min Glucose 170 mg/dL Osmolality - Calculated 283 mOsm/kg Calcium 8.6 mg/dL Protein, Total 7.0 g/dL Albumin 4.5 g/dL Globulin 2.5 g/dL Bilirubin, Total 0.2 mg/dL ALT (SGPT) 19 U/L AST (SGOT) 11 U/L Alkaline Phosphatase 129 IU/L WBC 2.7 10 3/uL RBC 4.05 10 6/uL HGB 11.5 g/dL HCT 35.5 % MCV 87.7 fL MCH 28.4 pg MCHC 32.4 g/dL RDW 17.6 % Platelet Count 232 10 3/cmm MPV 9.7 fL Neutrophils 2.48 10 3/uL Lymphocytes 0.2 10 3/uL Monocytes 0.0 10 3/uL Eosinophils 0.0 10 3/uL Basophils 0.0 10 3/uL Neutrophil % 91.1 % Lymphocyte % 7.4 % Monocyte % 0.4 % Eosinophil % 0.0 % Basophils % 0.4 % NRBC % 0 % Test performed on Feb 09, 2021 14:12 Hepatitis C Genotype NOT DETECTED Genotype not detected due to low or no viral load, mutations in viral genome at assay priming sites, presence of inhibitory substance, or other assay related factors. Viral load of >=300 IU/mL is required for testing. If this patient has a known concurrent viral load >=300 IU/mL contact client services for verification. The method used in this test is RT-PCR and reverse hybridization (Line Probe) of the 5' UTR and core region of the HCV genome. The analytical performance characteristics of this assay have been determined by [facility]. The modifications have not been cleared or approved by the FDA. This assay has been validated pursuant to the CLIA regulations and is used for clinical purposes. For additional information, please refer to http://education.[employer] /faq/HCVGenotyping (This link id being provided for informational/ educational purposes only.) THIS TEST WAS PERFORMED AT: [facility] [address] [place] [address] Jonathan PATEL Impression: 1. Squamous cell carcinoma involving the upper lobe of the right lung, by clinical evaluation stage IIIB (T4, N2, M0). She has associated right upper lobe atelectasis. 2. Iron deficiency anemia. 3. Chronic pain for which she is on methadone, administered through methadone clinic. 4. She has history of substance abuse and opiate addiction. 5. COPD. 6. GERD. 7. History of hepatitis C, untreated. 8. Anxiety and depression. She has associated panic attacks. Plan/Problems Addressed at this Visit: 1. Squamous cell carcinoma involving the upper lobe of the right lung, by clinical evaluation stage IIIB (T4, N2, M0). She has associated right upper lobe atelectasis. She underwent bronchoscopy/EBUS on 02/03/2021. She has biopsy-proven involvement in a subcarinal lymph node. There is a suspected satellite nodule in the right lower lobe by PET/CT. Dr Tadeo did review the PET/CT images with the patient and discussed the pathology results and the clinical implications. Dr Tadeo also reviewed the PET/CT images with Dr. Chaves, and it does appear that the primary tumor and satellite nodule can be encompassed within radiation field. As such, she is recommend undergo chemoradiation for primary treatment. She is advised that this treatment is not going to be curable. However, depending on the response to the chemoradiation she also may be eligible for maintenance immunotherapy. Her treatment plan will include radiation concurrently with weekly carboplatin/paclitaxel chemotherapy. She did have MRI of the brain for staging which was negative for metastatic disease. She had placement of a PowerPort catheter into the right internal jugular vein with ultrasound guidance by Dr. Agrawal on March 08, 2021. It was noted that he reported he did have difficulty accessing the left subclavian vein. A. Proceed with day 1 of cycle 1 carboplatin/Taxol. B. Steroid compliance confirmed. C. Labs from 06/14/2021 were reviewed in detail discussed with Ms. Thakkar and a copy was given to her. WBC 7.1, hemoglobin 11.3, platelets 224,000, ANC is 5110. Potassium 3.9 random glucose 94 creatinine 0.7 LFTs are normal. Alk phos was 127. D. She has disease associated anoxeria and she has beeb given a prescription for dronabinol 5 mg twice daily. 2. She has iron deficiency anemia. A. She has poor tolerance for oral iron due to her constipation. B. She was found to be iron deficient once again-Her iron saturation was 7.1%, iron level was 21 on November 12, 2020. C. She received peripheral iron replacement with Injectafer with her last dose on February 22, 2021. 3. She has anxiety and depression. She has associated panic attacks. Management is problematic, as she is on a high dose of methadone and she would not be suitable for use of benzodiazepine class medications. She describes having poor tolerance or lack of benefit previously with medications in the antidepressant class and with buspirone. 4. She has history of untreated hepatitis C. A. With her chemotherapy and radiation there is a risk that this can be reactivated. B. Her hepatitis C genotype and viral load were Not detected on her labs from February 09, 2021. 5. Follow-up plan A. She will have weekly CBC CMP the day before chemotherapy B. She was due for weekly carboplatin Taxol and she is reminded to take her steroids before the chemotherapy. C. She will require port maintenance with lab draw and port access. 6. Patient chemotherapy teaching A. The patient was informed of chemotherapy plan and specific drugs were discussed. We also discussed how chemotherapy works and identified common side effects including alopecia; myelosuppression-including neutropenia, anemia, thrombocytopenia; peripheral neuropathy; fatigue; nausea; diarrhea; constipation; bleeding or bruising; skin changes; mouth sores; drug hypersensitivity/allergic reactions or anaphylaxis and extravasation. They have also been informed how to contact the clinic with side effects or symptoms, including but not limited to fever greater than 100.4???, chills, sore throat, bleeding or bruising that is not explained or mouth sores, cough, nasal discharge, diarrhea, constipation, nausea and/or vomiting not relieved with medications on hand at home, as well as any other concern or question they may have. Our hours are 8:00 a.m. to 4:30 p.m. on Sunday through and 8-12:00 on Sunday. However, someone is contract law specialist 24 hours per day and they have been advised to contact the [facility] at if it is after hours. We have also discussed potential long-term side effects of chemotherapy including secondary cancers, infertility, pulmonary complications, cardiac complications, and again peripheral neuropathy. We have discussed that they certainly need to let us know before taking any antioxidants or herbal or further dietary supplements, as we are unsure of how these agents react with chemotherapy and we request that they avoid these products for now. They were informed that it is okay to take multivitamins at normal doses. They verbally state that they understand to take all medications as directed by their healthcare provider unless otherwise indicated. They also verbalized understanding to leave the pressure dressing on the intravenous administration site for at least two hours after treatment. Instructions for oral care with baking soda and salt water rinses as well as a guide for use of [id number] medication were provided with the treatment plan. Total time spent on Ms. Strongs care today including record review prior to visit, discussion of treatment plan along with side effect identification and management as well as answering multiple questions including questions I was unable to answer regarding her significant other and post visit documentation was 55 minutes. Signed By: Kirstin Miles-, CNP Sean Tadeo MD <<Signature on File>>
--- NOTE | 2021-03-26 11:23 | ONC FU_ITS ---
Dr. Tadeo Patient Follow-Up Note Patient: Caridad Thakkar Unit #: [id number]: 1965 Dicatated By: Sean Tadeo M.D.Date of Visit:March 22, 2021 Onc Med Follow-up/Prog Note Chief Complaint: Lung cancer. 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 She had presented initially to Dr. Pennington with complaints of swelling in her throat. Her chest x-ray showed elevated right hilum in association with a central opacity in the right upper lobe. The findings were suspicious for central malignancy involving the right hilum and adjacent mediastinum. Further evaluation with chest CT on 01/10/2021 showed a 2.0 x 4.0 right upper lobe mass with associated right upper lobe atelectasis. There was narrowing of the right upper lobe with left shift of the mediastinum from left to right. A subcarinal soft tissue density measuring 3.4 cm was felt to be consistent with enlarged lymph node. The upper abdominal structures appeared unremarkable. She had pulmonary consultation with Dr. Murillo on 01/24/2021. Staging PET/CT on 01/29/2021 showed FDG avid right upper lobe mass measuring 2.1 x 3.7 cm, SUV 16.9, consistent with primary malignancy. There was evidence of local metastatic disease in the subcarinal territory measuring 3.0 x 2.2 cm with SUV 14.9. A right paratracheal node measuring 1.9 cm also was consistent with metastatic disease. A right lower lung lesion adjacent to the pericardium measuring 1.7 cm was FDG avid with SUV 11.6 cm, consistent with a satellite nodule. On 02/03/2021 she underwent bronchoscopy with EBUS. There was noted to be visible mucosal irregularity starting very close to the indira with narrowing of the right mainstem bronchus. The appearance was consistent with malignancy. Endobronchial and transbronchial biopsies were obtained. EBUS showed evidence of mediastinal and hilar lymphadenopathy. FNA biopsy was obtained from a station 7 lymph node. Pathology on the station 7 lymph node biopsy were positive for squamous cell carcinoma. The PD-L1 expression to IHC 22C3 was < 1%. I had seen her initially on 02/09/2021. By clinical evaluation, her disease appeared to to be stage IIIB (T4, N2, M0), but after discussion with Dr. Chaves, it was determined that her lung disease could be encompassed within a single radiation field, she was recommended to undergo treatment with radiation concurrently with weekly carboplatin/paclitaxel chemotherapy. At the time of her initial evaluation, she also was mildly anemic with transferrin saturation low at 7%, consistent with iron deficiency. As the anemia had not been correcting with oral iron supplementation, she was given parenteral iron replacement with Injectafer. Her medical history is otherwise significant for COPD and GERD. She has a history of untreated hepatitis C. She also has a history of chronic pain with associated substance abuse and opiate addiction, for which she is receiving treatment through a methadone clinic. She has a history of smoking for 40 years, previously up to 1-1/2 packs of cigarettes daily. She currently smokes 1/2 pack/day. INTERIM HISTORY: She began radiation and her week 1 carboplatin/paclitaxel infusion on 03/15/2021. She tolerated the treatment without acute toxicity. She is seen for a follow-up visit. She has been feeling pretty good generally, though she does have some fatigue. Her ECOG score is 1. Her appetite is not good and she her weight is down a couple of pounds. However, she says she eats a lot. She has not had fever. She did have some sweating last night. She has allergy related sinus symptoms. She has just occasional cough. She has shortness of breath, which is chronic. She does not complain of chest pain. She had one episode of nausea. She has having mild constipation. She has frequent urination. She has chronic pain, mainly in her shoulders and in her mid back. She does not complain of headache or dizziness. She says is she always has numbness in her feet, but it is no worse. Medications: Albuterol Sulfate 1 - 2 Puff(s) (of 108 (90 base) mcg/act) Aerosol Powder, Breath Activated Inhalation q 4 hours PRN, Benadryl Allergy 2 (25 mg) Tablet Oral b.i.d., Dexamethasone 5 Tablet (of 4 mg) Oral, Famotidine 1 (20 mg) Tablet Oral four times a day PRN, Ibuprofen 1 (200 mg) Capsule Oral t.i.d. PRN, LORazepam 0.5 - 1 Tablet (of 1 mg) Oral t.i.d. PRN, Methadone HCl 1 (90 mg) Tablet Soluble Oral daily, Mirtazapine 1 (30 mg) Tablet Oral daily, Omeprazole Magnesium 1 (20 mg) Tablet, enteric coated Oral daily, Prochlorperazine Maleate 1 Tablet (of 10 mg) Oral q 4 hours PRN, Senna S 1 (8.6-50 mg) Tablet Oral t.i.d., Symbicort 1 Puff(s) (of 160-4.5 mcg/act) Aerosol Inhalation b.i.d., Vitamin C 1 Capsule (of 500 mg) Oral daily Allergies: Azithromycin, Latex, Nalbuphine HCl, and Sulfa Antibiotics. Vital Signs: Performed on March 22, 2021 12:54 Height - 62.00 in Weight - 102 lbs (HIGH) BSA - 1.44 sq.m BMI - 18.66 Temperature - 97.5 F (LOW) Pulse - 102 /min (HIGH) Respiration - 18 /min BP - 125/85 mm(hg) O2 Sat - 97 % Pain - 0 Fatigue - 5 Physical Examination: Constitutional - She appears chronically ill, Eyes - Sclerae nonicteric. Conjunctivae clear, ENMT - No lesions noted in the oral cavity, Hematologic/Lymphatic - No cervical, clavicular, or axillary adenopathy, Respiratory - Lungs show diminished breath sounds bilaterally. There is slight expiratory wheezing, Cardiovascular - Heart rhythm is regular. There is no murmur, gallop, or rub noted, Abdomen - Soft. Liver and spleen are not enlarged. There is no abdominal mass or ascites noted and there is no inguinal adenopathy, Extremities - No edema, Neurologic - No focal neurologic deficits noted. Lab/Imaging: Test performed on March 22, 2021 10:25 Sodium 134 mmol/L Potassium 4.7 mmol/L Chloride 99 mmol/L CO2 25 mmol/L Anion Gap 14.7 BUN 15 mg/dL Creatinine 0.5 mg/dL Cr Clearance (Est) 90.8500 mL/min eGFR 127.2 mL/min Glucose 170 mg/dL Osmolality - Calculated 283 mOsm/kg Calcium 8.6 mg/dL Protein, Total 7.0 g/dL Albumin 4.5 g/dL Globulin 2.5 g/dL Bilirubin, Total 0.2 mg/dL ALT (SGPT) 19 U/L AST (SGOT) 11 U/L Alkaline Phosphatase 129 IU/L WBC 2.7 10 3/uL RBC 4.05 10 6/uL HGB 11.5 g/dL HCT 35.5 % MCV 87.7 fL MCH 28.4 pg MCHC 32.4 g/dL RDW 17.6 % Platelet Count 232 10 3/cmm MPV 9.7 fL Neutrophils 2.48 10 3/uL Lymphocytes 0.2 10 3/uL Monocytes 0.0 10 3/uL Eosinophils 0.0 10 3/uL Basophils 0.0 10 3/uL Neutrophil % 91.1 % Lymphocyte % 7.4 % Monocyte % 0.4 % Eosinophil % 0.0 % Basophils % 0.4 % NRBC % 0 % Problem List: 1. Squamous cell carcinoma involving the upper lobe of the right lung, by clinical evaluation stage IIIB (T4, N2, M0). She has associated right upper lobe atelectasis. 2. Iron deficiency anemia. 3. Chronic pain for which she is on methadone, administered through methadone clinic. 4. She has history of substance abuse and opiate addiction. 5. COPD. 6. GERD. 7. History of hepatitis C, untreated. 8. Anxiety and depression. She has associated panic attacks. Problems Addressed with this Encounter and Plan: 1. 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 She had associated right upper lobe atelectasis. She underwent bronchoscopy/EBUS on 02/03/2021, and she had biopsy-proven involvement in a subcarinal lymph node. There was a suspected satellite nodule in the right lower lobe by PET/CT. I reviewed the PET/CT images with Dr. Chaves, and it appeared that the primary tumor and satellite nodule could be encompassed within radiation field. As such, she was recommend undergo chemoradiation for primary treatment. She is advised that this treatment is not going to be curable. However, depending on the response to the recommended to under radiation concurrently with weekly carboplatin/paclitaxel chemotherapy. She began radiation with her week 1 carboplatin/paclitaxel infusion on 03/15/2021. She has had some mild nausea with the chemotherapy and she has ongoing complaints with anorexia. She seems to be tolerating the chemotherapy well otherwise. There has been a drop in her white blood cell count, but thus far it remains adequate, and she will proceed with her week 2 carboplatin/paclitaxel. The dosages will remain the same, but with the drop in her neutrophil count, I am going to give her 2 days of Neupogen prophylactically. She will be scheduled for her next visit in 1 week. 2. She had evidence of iron deficiency anemia. She had tolerated oral iron poorly due to constipation. As such, she was given parenteral iron replacement with Injectafer. She tolerated it well. She unfortunately remains slightly anemic. 3. She has anxiety and depression. She has associated panic attacks. Management has been problematic, but thus far it is responding adequately to treatment with lorazepam, which she is also using for nausea. 4. She has history of untreated hepatitis C. With her chemotherapy and radiation there is a risk that this can be reactivated. Her baseline viral load was found to be negative, but it will require ongoing monitoring. Signed By: Sean Tadeo M.D. <<Signature on File>>
== END 2021-03-28 23:59 | disposition home or self-care (01) ==
LOC: ONCMED 05:43
PROVIDERS: Internal Medicine Hematology & Oncology; Internal Medicine Medical Oncology; Absent Provider Radiology Radiation Oncology; PCP Family Medicine; Visit Provider Radiology Radiation Oncology
DX: Z51.0 Encounter for antineoplastic radiation therapy (principal); Z51.11 Encounter for antineoplastic chemotherapy; C34.11 Malignant neoplasm of upper lobe, right bronchus or lung; J98.11 Atelectasis; D50.9 Iron deficiency anemia, unspecified; G89.4 Chronic pain syndrome; F11.20 Opioid dependence, uncomplicated; J44.9 Chronic obstructive pulmonary disease, unspecified; K21.9 Gastro-esophageal reflux disease without esophagitis; F41.9 Anxiety disorder, unspecified; F32.9 Major depressive disorder, single episode, unspecified; F41.0 Panic disorder [episodic paroxysmal anxiety]; Z86.19 Personal history of other infectious and parasitic diseases; Z79.899 Other long term (current) drug therapy
CPT/HCPCS: 36415; 77300; 77301; 77334; 77336; 77338; 77386; 77470; 80053; 85025; 96367; 96375; 96413; 96417; 99215; J1100; J1200; J2469; J3490; J7030; J7050; J9045; J9267; Q9967

== ENCOUNTER 2021-04-27 05:45 | Outpatient (RCR) | payer MEDICARE, MEDICAID, SELFPAY ==
--- NOTE | 2021-03-29 10:21 | ONCRAD TMN_ITS ---
Radiation Oncology Treatment Management Note Patient Name: Caridad Thakkar Date of : 1965 Date of Service: 03/29/2021 Attending Physician: Rober Chaves M.D. Caridad Thakkar is a 55 year-old white female diagnosed with a clinical stage clinical stage IIIB (T4N2) squamous cell carcinoma (PD-L1 TPS < 1) of the right upper lobe of the lung. The patient has received 20 Gy of a prescribed 60 Kurtz with an intensity modulated radiotherapy plan utilizing a step and shoot treatment technique. She has been prescribed carboplatin (AUC 2) and paclitaxel (50 mg/m???) weekly during therapy. Upon review of systems, she denied pulmonary symptoms. On physical examination, the patient weighed 104 lbs. Her temperature was 98.1 ???F with a blood pressure of 129/83 mmHg. The pulse was 97 bpm and her respiratory rate was 18. Oxygen saturation while breathing room air was 99%. There was no erythema within the treatment mota. Auscultation of the posterior lung mota identified bronchial breath sounds. Continue thoracic radiotherapy as prescribed. Signed by: Dr. Rober Chaves 03/29/2021 10:20:13 AM
[2021-03-29 10:41] LABS: Basophils % 1.2 %; Eosinophils # 0.1 10^3/uL (0.0-0.8); Eosinophils % 2.6 %; Hematocrit 33.5 % (37.0-47.0); Hemoglobin 10.8 g/dL (11.5-15.3); Lymphocytes # 0.6 10^3/uL (0.8-4.8); Lymphocytes % 16.8 %; Mean Corpuscular HGB Conc 32.2 g/dL (30.0-36.0); Mean Corpuscular Hemoglobin 28.8 pg (28.0-34.0); Mean Corpuscular Volume 89.3 fL (81-99); Mean Platelet Volume 9.6 fL (7.4-10.4); Monocytes # 0.4 10^3/uL (0.2-0.9); Monocytes % 11.9 %; Neutrophils # 2.32 10^3/uL (1.8-7.7); Neutrophils % 67.2 %; Nucleated Red Blood Cells % 0 %; Platelet Count 173 10^3/cmm (130-400); Red Blood Count 3.75 10^6/uL (4.1-5.3); Red Cell Distribution Width 17.6 % (12.1-15.1); White Blood Count 3.5 10^3/uL (4.0-10.0)
[2021-03-29 10:56] LABS: Alanine Aminotransferase 8 U/L (0-33); Albumin Level 4.1 g/dL (3.5-5.2); Alkaline Phosphatase 102 IU/L (35-105); Anion Gap 13.4 (5-19); Aspartate Amino Transferase 11 U/L (0-32); Blood Urea Nitrogen 13 mg/dL (6-20); Calcium 8.4 mg/dL (8.5-10.5); Carbon Dioxide 27 mmol/L (22-29); Chloride 102 mmol/L (98-107); Globulin 2.6 g/dL (1.3-4.6); Glucose 84 mg/dL (65-115); Osmolality Calculated 285 mOsm/kg (285-295); Potassium 4.4 mmol/L (3.5-5.1); Sodium 138 mmol/L (136-145); Total Bilirubin 0.2 mg/dL (0.15-1.2); Total Protein 6.7 g/dL (6.6-8.7)
[2021-03-30] MEDS: famotidine 20 mg/2 mL INJ IVP (13:00)
[2021-03-30] MEDS: sodium chloride 0.9% 250 ML 75 ML IV (13:00)
[2021-03-30] MEDS: diphenhydrAMINE 50 mg/mL SDV 1mL 25 MG IVP (13:02)
[2021-03-30] MEDS: palonosetron 0.25 mg/5 mL SDV IVP (13:06)
--- NOTE | 2021-04-01 06:41 | ONC FU_ITS ---
Dr. Tadeo Patient Follow-Up Note Patient: Caridad Thakkar Unit #: [id number]: 1965 Dicatated By: Sean Tadeo M.D.Date of Visit:Mar 30, 2021 Onc Med Follow-up/Prog Note Chief Complaint: Lung cancer. 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 She had presented initially to Dr. Pennington with complaints of swelling in her throat. Her chest x-ray showed elevated right hilum in association with a central opacity in the right upper lobe. The findings were suspicious for central malignancy involving the right hilum and adjacent mediastinum. Further evaluation with chest CT on 01/10/2021 showed a 2.0 x 4.0 right upper lobe mass with associated right upper lobe atelectasis. There was narrowing of the right upper lobe with left shift of the mediastinum from left to right. A subcarinal soft tissue density measuring 3.4 cm was felt to be consistent with enlarged lymph node. The upper abdominal structures appeared unremarkable. She had pulmonary consultation with Dr. Murillo on 01/24/2021. Staging PET/CT on 01/29/2021 showed FDG avid right upper lobe mass measuring 2.1 x 3.7 cm, SUV 16.9, consistent with primary malignancy. There was evidence of local metastatic disease in the subcarinal territory measuring 3.0 x 2.2 cm with SUV 14.9. A right paratracheal node measuring 1.9 cm also was consistent with metastatic disease. A right lower lung lesion adjacent to the pericardium measuring 1.7 cm was FDG avid with SUV 11.6 cm, consistent with a satellite nodule. On 02/03/2021 she underwent bronchoscopy with EBUS. There was noted to be visible mucosal irregularity starting very close to the indira with narrowing of the right mainstem bronchus. The appearance was consistent with malignancy. Endobronchial and transbronchial biopsies were obtained. EBUS showed evidence of mediastinal and hilar lymphadenopathy. FNA biopsy was obtained from a station 7 lymph node. Pathology on the station 7 lymph node biopsy were positive for squamous cell carcinoma. The PD-L1 expression to IHC 22C3 was < 1%. I had seen her initially on 02/09/2021. By clinical evaluation, her disease appeared to to be stage IIIB (T4, N2, M0), but after discussion with Dr. Chaves, it was determined that her lung disease could be encompassed within a single radiation field, she was recommended to undergo treatment with radiation concurrently with weekly carboplatin/paclitaxel chemotherapy. At the time of her initial evaluation, she also was mildly anemic with transferrin saturation low at 7%, consistent with iron deficiency. As the anemia had not been correcting with oral iron supplementation, she was given parenteral iron replacement with Injectafer. Her medical history is otherwise significant for COPD and GERD. She has a history of untreated hepatitis C. She also has a history of chronic pain with associated substance abuse and opiate addiction, for which she is receiving treatment through a methadone clinic. She has a history of smoking for 40 years, previously up to 1-1/2 packs of cigarettes daily. She currently smokes 1/2 pack/day. INTERIM HISTORY: She began radiation and her week 1 carboplatin/paclitaxel infusion on 03/15/2021. She had some mild nausea and anorexia without treatment and she also did have a drop in her neutrophil count. With her week to treatment on 03/22/2021 she was given Neupogen prophylactically for 2 days. She is seen for a follow-up visit. She says she is feeling good. Her energy is okay, she does have limited activity due to her breathing and to her back pain. She is doing light work. ECOG score is 1. She has good appetite. She has no fever or night sweats. She has some sinus drainage and she has a little bit of cough. She is short of breath with activity. She does not complain of chest pain. She has not been having nausea. She does report having some acid reflux and some gas. Bowel function remains adequate with bowel movements typically every couple of days. She has some urgency with urination and some incontinence. She has back pain, which is chronic. She does not complain of headache or dizziness. She sometimes has numbness in her left foot, but that also is not new. She has no other focal neurologic symptoms. Medications: Albuterol Sulfate 1 - 2 Puff(s) (of 108 (90 base) mcg/act) Aerosol Powder, Breath Activated Inhalation q 4 hours PRN, Benadryl Allergy 2 (25 mg) Tablet Oral b.i.d., Dexamethasone 5 Tablet (of 4 mg) Oral, Famotidine 1 (20 mg) Tablet Oral four times a day PRN, Ibuprofen 1 (200 mg) Capsule Oral t.i.d. PRN, LORazepam 0.5 - 1 Tablet (of 1 mg) Oral t.i.d. PRN, Methadone HCl 1 (90 mg) Tablet Soluble Oral daily, Mirtazapine 1 (30 mg) Tablet Oral daily, Omeprazole Magnesium 1 (20 mg) Tablet, enteric coated Oral daily, Prochlorperazine Maleate 1 Tablet (of 10 mg) Oral q 4 hours PRN, Senna S 1 (8.6-50 mg) Tablet Oral t.i.d., Symbicort 1 Puff(s) (of 160-4.5 mcg/act) Aerosol Inhalation b.i.d., Vitamin C 1 Capsule (of 500 mg) Oral daily Allergies: Azithromycin, Latex, Nalbuphine HCl, and Sulfa Antibiotics. Vital Signs: Performed on Mar 30, 2021 12:23 Height - 62.00 in Weight - 104 lbs BSA - 1.45 sq.m BMI - 19.02 Temperature - 98.7 F Pulse - 110 /min (HIGH) Respiration - 18 /min BP - 112/70 mm(hg) O2 Sat - 96 % Pain - 0 Fatigue - 0 Physical Examination: Constitutional - She appears chronically ill, Eyes - Sclerae nonicteric. Conjunctivae clear, ENMT - No lesions noted in the oral cavity, Hematologic/Lymphatic - No cervical, clavicular, or axillary adenopathy, Respiratory - Lungs sound clear with diminished air movement bilaterally, Cardiovascular - Heart rhythm is regular. There is no murmur, gallop, or rub noted, Abdomen - Soft. Liver and spleen are not enlarged. There is no abdominal mass or ascites noted and there is no inguinal adenopathy, Extremities - No edema, Neurologic - No focal neurologic deficits noted. Lab/Imaging: Test performed on Mar 29, 2021 10:23 Sodium 138 mmol/L Potassium 4.4 mmol/L Chloride 102 mmol/L CO2 27 mmol/L Anion Gap 13.4 BUN 13 mg/dL Creatinine 0.6 mg/dL Cr Clearance (Est) 75.7100 mL/min eGFR 103.0 mL/min Glucose 84 mg/dL Osmolality - Calculated 285 mOsm/kg Calcium 8.4 mg/dL Protein, Total 6.7 g/dL Albumin 4.1 g/dL Globulin 2.6 g/dL Bilirubin, Total 0.2 mg/dL ALT (SGPT) 8 U/L AST (SGOT) 11 U/L Alkaline Phosphatase 102 IU/L WBC 3.5 10 3/uL RBC 3.75 10 6/uL HGB 10.8 g/dL HCT 33.5 % MCV 89.3 fL MCH 28.8 pg MCHC 32.2 g/dL RDW 17.6 % Platelet Count 173 10 3/cmm MPV 9.6 fL Neutrophils 2.32 10 3/uL Lymphocytes 0.6 10 3/uL Monocytes 0.4 10 3/uL Eosinophils 0.1 10 3/uL Basophils 0.0 10 3/uL Neutrophil % 67.2 % Lymphocyte % 16.8 % Monocyte % 11.9 % Eosinophil % 2.6 % Basophils % 1.2 % NRBC % 0 % Problem List: 1. Squamous cell carcinoma involving the upper lobe of the right lung, by clinical evaluation stage IIIB (T4, N2, M0). She has associated right upper lobe atelectasis. 2. Iron deficiency anemia. 3. Chronic pain for which she is on methadone, administered through methadone clinic. 4. She has history of substance abuse and opiate addiction. 5. COPD. 6. GERD. 7. History of hepatitis C, untreated. 8. Anxiety and depression. She has associated panic attacks. Problems Addressed with this Encounter and Plan: 1. 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 She had associated right upper lobe atelectasis. She underwent bronchoscopy/EBUS on 02/03/2021, and she had biopsy-proven involvement in a subcarinal lymph node. There was a suspected satellite nodule in the right lower lobe by PET/CT. I reviewed the PET/CT images with Dr. Chaves, and it appeared that the primary tumor and satellite nodule could be encompassed within radiation field. As such, she was recommend undergo chemoradiation for primary treatment. She is advised that this treatment is not going to be curable. However, depending on the response to the recommended to under radiation concurrently with weekly carboplatin/paclitaxel chemotherapy. She began radiation with her week 1 carboplatin/paclitaxel infusion on 03/15/2021. She had some mild nausea and anorexia with the chemotherapy, and there was a drop in her white blood cell count following her initial treatment. With her week 2 carboplatin/paclitaxe she was given 2 days of Neupogen prophylactically. At this point she continues to have mild neutropenia and anemia, but her blood counts are adequate and she otherwise appears to be tolerating the treatment well. She will continue with her week 3 carboplatin/paclitaxel. Dosages remain the same, and she will continue the Neupogen prophylactically. 2. She had evidence of iron deficiency anemia. She had tolerated oral iron poorly due to constipation. As such, she was given parenteral iron replacement with Injectafer. She tolerated it well, but during follow-up she has remained slightly anemic. 3. She has anxiety and depression. She has associated panic attacks. Thus far it is being managed adequately with lorazepam, which she is also using for nausea. 4. She has history of untreated hepatitis C. With her chemotherapy and radiation there is a risk that this can be reactivated. Her baseline viral load was found to be negative, but it will require ongoing monitoring. Signed By: Sean Tadeo M.D. <<Signature on File>>
--- NOTE | 2021-04-04 09:29 | ONCRAD TMN_ITS ---
Radiation Oncology Treatment Management Note Patient Name: Caridad Thakkar Date of : 1965 Date of Service: 04/04/2021 Attending Physician: Rober Chaves M.D. Caridad Thakkar is a 55 year-old white female diagnosed with a clinical stage clinical stage IIIB (T4N2) squamous cell carcinoma (PD-L1 TPS < 1) of the right upper lobe of the lung. The patient has received 28 Gy of a prescribed 60 Kurtz with an intensity modulated radiotherapy plan utilizing a step and shoot treatment technique. She has been prescribed carboplatin (AUC 2) and paclitaxel (50 mg/m???) weekly during therapy. Upon review of systems, she denied pulmonary symptoms. She described dyspepsia. On physical examination, the patient weighed 101 lbs. Her temperature was 98.3 ???F with a blood pressure of 137/84 mmHg. The pulse was 90 bpm and her respiratory rate was 18. Oxygen saturation while breathing room air was 97%. There was no erythema within the treatment mota. Auscultation of the posterior lung mota identified bronchial breath sounds. Continue thoracic radiotherapy as planned. I will prescribed Nexium for dyspepsia. Signed by: Dr. Rober Chaves 04/04/2021 9:28:11 AM
[2021-04-06 09:41] LABS: Hematocrit 34.9 % (37.0-47.0); Hemoglobin 11.3 g/dL (11.5-15.3); Lymphocytes # 0.1 10^3/uL (0.8-4.8); Mean Corpuscular HGB Conc 32.4 g/dL (30.0-36.0); Mean Corpuscular Hemoglobin 29.4 pg (28.0-34.0); Mean Corpuscular Volume 90.9 fL (81-99); Mean Platelet Volume 9.5 fL (7.4-10.4); Monocytes % 1.6 %; Neutrophils # 2.38 10^3/uL (1.8-7.7); Neutrophils % 92.2 %; Nucleated Red Blood Cells % 0 %; Platelet Count 181 10^3/cmm (130-400); Red Blood Count 3.84 10^6/uL (4.1-5.3); Red Cell Distribution Width 18.2 % (12.1-15.1); White Blood Count 2.6 10^3/uL (4.0-10.0)
[2021-04-06 10:01] LABS: Alanine Aminotransferase 12 U/L (0-33); Albumin Level 4.3 g/dL (3.5-5.2); Alkaline Phosphatase 99 IU/L (35-105); Anion Gap 15.5 (5-19); Aspartate Amino Transferase 10 U/L (0-32); Blood Urea Nitrogen 21 mg/dL (6-20); Calcium 8.4 mg/dL (8.5-10.5); Carbon Dioxide 25 mmol/L (22-29); Chloride 99 mmol/L (98-107); Globulin 2.3 g/dL (1.3-4.6); Glucose 143 mg/dL (65-115); Osmolality Calculated 285 mOsm/kg (285-295); Potassium 4.5 mmol/L (3.5-5.1); Sodium 135 mmol/L (136-145); Total Bilirubin 0.2 mg/dL (0.15-1.2); Total Protein 6.6 g/dL (6.6-8.7)
--- NOTE | 2021-04-11 10:30 | ONCRAD TMN_ITS ---
Radiation Oncology Treatment Management Note Patient Name: Caridad Thakkar Date of : 1965 Date of Service: 04/11/2021 Attending Physician: Rober Chaves M.D. Caridad Thakkar is a 55 year-old white female diagnosed with a clinical stage clinical stage IIIB (T4N2) squamous cell carcinoma (PD-L1 TPS < 1) of the right upper lobe of the lung. The patient has received 34 Gy of a prescribed 60 Kurtz with an intensity modulated radiotherapy plan utilizing a step and shoot treatment technique. She has been prescribed carboplatin (AUC 2) and paclitaxel (50 mg/m???) weekly during therapy. Upon review of systems, she denied pulmonary symptoms. On physical examination, the patient weighed 99 lbs. Her temperature was 98.5 ???F with a blood pressure of 112/66 mmHg. The pulse was 110 bpm and her respiratory rate was 20. Oxygen saturation while breathing room air was 96%. There was no erythema within the treatment moat. Auscultation of the posterior lung mota identified inspiratory wheezes. Continue thoracic radiotherapy as prescribed. Signed by: Dr. Rober Chaves 04/11/2021 10:28:23 AM
[2021-04-12 09:50] LABS: Basophils % 0.4 %; Eosinophils # 0.1 10^3/uL (0.0-0.8); Eosinophils % 1.5 %; Hematocrit 33.9 % (37.0-47.0); Lymphocytes # 0.4 10^3/uL (0.8-4.8); Mean Corpuscular HGB Conc 32.4 g/dL (30.0-36.0); Mean Corpuscular Hemoglobin 30.1 pg (28.0-34.0); Mean Corpuscular Volume 92.6 fL (81-99); Mean Platelet Volume 9.3 fL (7.4-10.4); Monocytes # 0.6 10^3/uL (0.2-0.9); Monocytes % 13.5 %; Neutrophils # 3.52 10^3/uL (1.8-7.7); Neutrophils % 75.4 %; Nucleated Red Blood Cells % 0 %; Platelet Count 126 10^3/cmm (130-400); Red Blood Count 3.66 10^6/uL (4.1-5.3); Red Cell Distribution Width 18.6 % (12.1-15.1); White Blood Count 4.7 10^3/uL (4.0-10.0)
[2021-04-12 10:21] LABS: Alanine Aminotransferase 13 U/L (0-33); Albumin Level 3.9 g/dL (3.5-5.2); Alkaline Phosphatase 87 IU/L (35-105); Anion Gap 11.9 (5-19); Aspartate Amino Transferase 12 U/L (0-32); Blood Urea Nitrogen 17 mg/dL (6-20); Calcium 8.1 mg/dL (8.5-10.5); Carbon Dioxide 26 mmol/L (22-29); Chloride 103 mmol/L (98-107); Globulin 2.5 g/dL (1.3-4.6); Glucose 87 mg/dL (65-115); Osmolality Calculated 285 mOsm/kg (285-295); Potassium 3.9 mmol/L (3.5-5.1); Sodium 137 mmol/L (136-145); Total Bilirubin 0.2 mg/dL (0.15-1.2); Total Protein 6.4 g/dL (6.6-8.7)
[2021-04-13] MEDS: palonosetron 0.25 mg/5 mL SDV IVP (11:25)
[2021-04-13] MEDS: sodium chloride 0.9% 250 ML 75 ML IV (11:25)
[2021-04-13] MEDS: famotidine 20 mg/2 mL INJ IVP (11:26)
[2021-04-13] MEDS: diphenhydrAMINE 50 mg/mL SDV 1mL 25 MG IVP (11:28)
--- NOTE | 2021-04-18 09:32 | ONCRAD TMN_ITS ---
Radiation Oncology Treatment Management Note Patient Name: Caridad Thakkar Date of : 1965 Date of Service: 04/18/2021 Attending Physician: Rober Chaves M.D. Caridad Thakkar is a 55 year-old white female diagnosed with a clinical stage clinical stage IIIB (T4N2) squamous cell carcinoma (PD-L1 TPS < 1) of the right upper lobe of the lung. The patient has received 44 Gy of a prescribed 60 Kurtz with an intensity modulated radiotherapy plan utilizing a step and shoot treatment technique. She has been prescribed carboplatin (AUC 2) and paclitaxel (50 mg/m???) weekly during therapy. Upon review of systems, she denied pulmonary symptoms. On physical examination, the patient weighed 98 lbs. Her temperature was 98.9 ???F with a blood pressure of 123/83 mmHg. The pulse was 111 bpm and her respiratory rate was 20. Oxygen saturation while breathing room air was 95%. There was no erythema within the treatment mota. Auscultation of the posterior lung mota identified bronchial breath sounds. Continue thoracic radiotherapy as planned. Signed by: Dr. Rober Chaves 04/18/2021 9:30:45 AM
[2021-04-19 09:45] LABS: Basophils # 0.1 10^3/uL (0.0-0.1); Basophils % 1.5 %; Eosinophils # 0.1 10^3/uL (0.0-0.8); Hematocrit 32.5 % (37.0-47.0); Hemoglobin 10.7 g/dL (11.5-15.3); Lymphocytes # 0.2 10^3/uL (0.8-4.8); Lymphocytes % 6.8 %; Mean Corpuscular HGB Conc 32.9 g/dL (30.0-36.0); Mean Corpuscular Hemoglobin 30.8 pg (28.0-34.0); Mean Corpuscular Volume 93.7 fL (81-99); Mean Platelet Volume 9.7 fL (7.4-10.4); Monocytes # 0.3 10^3/uL (0.2-0.9); Monocytes % 10.1 %; Neutrophils # 2.62 10^3/uL (1.8-7.7); Neutrophils % 77.7 %; Nucleated Red Blood Cells % 0 %; Platelet Count 93 10^3/cmm (130-400); Red Blood Count 3.47 10^6/uL (4.1-5.3); Red Cell Distribution Width 18.3 % (12.1-15.1); White Blood Count 3.4 10^3/uL (4.0-10.0)
[2021-04-19 10:12] LABS: Alanine Aminotransferase 9 U/L (0-33); Albumin Level 3.9 g/dL (3.5-5.2); Alkaline Phosphatase 96 IU/L (35-105); Anion Gap 11.9 (5-19); Aspartate Amino Transferase 12 U/L (0-32); Blood Urea Nitrogen 19 mg/dL (6-20); Calcium 8.3 mg/dL (8.5-10.5); Carbon Dioxide 27 mmol/L (22-29); Chloride 102 mmol/L (98-107); Globulin 2.3 g/dL (1.3-4.6); Glomerular Filtration Rate 73.9 mL/min (90-130); Glucose 101 mg/dL (65-115); Osmolality Calculated 286 mOsm/kg (285-295); Potassium 3.9 mmol/L (3.5-5.1); Sodium 137 mmol/L (136-145); Total Bilirubin 0.3 mg/dL (0.15-1.2); Total Protein 6.2 g/dL (6.6-8.7)
--- NOTE | 2021-04-23 14:38 | ONC FU_ITS ---
[facility] Patient Note Patient: Caridad Thakkar Unit #: [id number]: 1965 Dictated By: Kirstin MilesDate of Visit: Apr 06, 2021 Onc MED Follow-Up/Prog Note Chief Complaint: Lung cancer. 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 She had presented initially to Dr. Pennington with complaints of swelling in her throat. Her chest x-ray showed elevated right hilum in association with a central opacity in the right upper lobe. The findings were suspicious for central malignancy involving the right hilum and adjacent mediastinum. Further evaluation with chest CT on 01/10/2021 showed a 2.0 x 4.0 right upper lobe mass with associated right upper lobe atelectasis. There was narrowing of the right upper lobe with left shift of the mediastinum from left to right. A subcarinal soft tissue density measuring 3.4 cm was felt to be consistent with enlarged lymph node. The upper abdominal structures appeared unremarkable. She had pulmonary consultation with Dr. Murillo on 01/24/2021. Staging PET/CT on 01/29/2021 showed FDG avid right upper lobe mass measuring 2.1 x 3.7 cm, SUV 16.9, consistent with primary malignancy. There was evidence of local metastatic disease in the subcarinal territory measuring 3.0 x 2.2 cm with SUV 14.9. A right paratracheal node measuring 1.9 cm also was consistent with metastatic disease. A right lower lung lesion adjacent to the pericardium measuring 1.7 cm was FDG avid with SUV 11.6 cm, consistent with a satellite nodule. On 02/03/2021 she underwent bronchoscopy with EBUS. There was noted to be visible mucosal irregularity starting very close to the indira with narrowing of the right mainstem bronchus. The appearance was consistent with malignancy. Endobronchial and transbronchial biopsies were obtained. EBUS showed evidence of mediastinal and hilar lymphadenopathy. FNA biopsy was obtained from a station 7 lymph node. Pathology on the station 7 lymph node biopsy were positive for squamous cell carcinoma. The PD-L1 expression to IHC 22C3 was < 1%. Dr Tadeo had seen her initially on 02/09/2021. By clinical evaluation, her disease appeared to to be stage IIIB (T4, N2, M0), but after discussion with Dr. Chaves, it was determined that her lung disease could be encompassed within a single radiation field, she was recommended to undergo treatment with radiation concurrently with weekly carboplatin/paclitaxel chemotherapy. At the time of her initial evaluation, she also was mildly anemic with transferrin saturation low at 7%, consistent with iron deficiency. As the anemia had not been correcting with oral iron supplementation, she was given parenteral iron replacement with Injectafer. Her medical history is otherwise significant for COPD and GERD. She has a history of untreated hepatitis C. She also has a history of chronic pain with associated substance abuse and opiate addiction, for which she is receiving treatment through a methadone clinic. She has a history of smoking for 40 years, previously up to 1-1/2 packs of cigarettes daily. She currently smokes 1/2 pack/day. INTERIM HISTORY: She began radiation and her week 1 carboplatin/paclitaxel infusion on 03/15/2021. She had some mild nausea and anorexia without treatment and she also did have a drop in her neutrophil count with her week 2 treatment on 03/22/2021. She was given Neupogen prophylactically for 2 days. She had dose reduction with cycle 3 and tolerated that well. She is here today for follow-up. She has no new concerns today. She states that she has had a lot of anxiety and nerves due to her significant other. He has been recently diagnosed with cancer as well. She states he had quite a few mood swings and this has been really hard on her as this is unusual for him. Regards to her own female she states that she is doing pretty good. She has had less nausea. She is eating better. She denies any fever or chills. She denies any diarrhea or constipation. She has no new concerns today. Her biggest concerns are her anxiety related to her significant other. Her ECOG is 1. After assessment of her hands and fissures were noted on her thumbs bilaterally. Mrs. Thakkar states that her thumbs have been tender but she really had not paid much attention to them. She declines exam of her feet but states there is no lesions or fissures or skin changes there. Past Medical History: Anxiety Chronic low back pain Chronic obstructive pulmonary disease (Treated) Depression Gastroesophageal reflux disease Hepatitis C History of substance abuse Past Surgical History: section in 1982, 1986, and in 1992 Bronchoscopy with endobronchial and transbronchial biopsies and EBUS/FNA biopsies in 2020 Hysterectomy with unilateral oophorectomy in 2006 Laparoscopic surgery for ovarian cyst in 1994 Allergies: Azithromycin, Latex, Nalbuphine HCl, and Sulfa Antibiotics. Medications: Albuterol Sulfate 1 - 2 Puff(s) (of 108 (90 base) mcg/act) Aerosol Powder, Breath Activated Inhalation q 4 hours PRN Benadryl Allergy 2 (25 mg) Tablet Oral b.i.d. Dexamethasone 5 Tablet (of 4 mg) Oral Famotidine 1 (20 mg) Tablet Oral four times a day PRN Ibuprofen 1 (200 mg) Capsule Oral t.i.d. PRN LORazepam 0.5 - 1 Tablet (of 1 mg) Oral t.i.d. PRN Methadone HCl 1 (90 mg) Tablet Soluble Oral daily Mirtazapine 1 (30 mg) Tablet Oral daily Omeprazole Magnesium 1 (20 mg) Tablet, enteric coated Oral daily Prochlorperazine Maleate 1 Tablet (of 10 mg) Oral q 4 hours PRN Senna S 1 (8.6-50 mg) Tablet Oral t.i.d. Symbicort 1 Puff(s) (of 160-4.5 mcg/act) Aerosol Inhalation b.i.d. Tagamet HB 1 Tablet (of 200 mg) Tablet Oral daily Vitamin C 1 Capsule (of 500 mg) Oral daily Family History: Ms. Thakkar's mother at age 34: Breast Cancer, and Pancreatic Cancer, and hypertension, and osteoporosis. Ms. Thakkar's father at age 75: stroke. Ms. Thakkar has 1 brother who is alive. She has 2 sisters: 2 alive. Father of stroke at age 75. Mother had breast cancer and pancreatitis. She also had diabetes. She at age 34. One brother and 2 sisters are in good health. A son at age 29, apparently due to accidental overdose. Social History: Ms. Thakkar is single and she is a disabled. She is an occasional smoker who has smoked 1.0 pack/day for 40 years. She is a former drinker. She has indicated exposure to the following products: cigarettes and marijuana. Patient has now decreased her smoking to 6 cigarettes per day. She is disabled. She has a history of smoking for 40 years, previously up to 1-1/2 packs of cigarettes daily. She is now down to smoking 1/2 pack/day. She has a history of heavy drinking. She quit 17 years ago. She had used IV drugs at around age 15 or 16. She subsequently developed opiate dependence. She is now attending a methadone clinic. Review Of Symptoms: <See Above> Vital Signs: Performed on Apr 06, 2021 10:40 Height - 62.00 in Weight - 101.4 lbs BSA - 1.43 sq.m BMI - 18.55 Temperature - 96.2 F (LOW) Pulse - 95 /min Respiration - 17 /min BP - 151/79 mm(hg) (HIGH) O2 Sat - 96 % Pain - 4,2 - Ambulatory/capable of all self-care, unable to perform any work activities. Up and about more than 50% of waking hours. (ECOG) Physical Examination: Constitutional Alert, oriented, no acute distress. Skin pink, warm and dry. Very anxious today. Head Normocephalic; atraumatic. Eyes Conjunctivae and sclerae are clear and without icterus. Pupils are reactive and equal. ENMT No oral exudates, ulcers, masses, thrush or mucositis. Oropharynx clear. Tongue normal. Neck Supple without masses or thyromegaly. No jugular venous distension. Hematologic/Lymphatic No petechiae or purpura. No tender or palpable lymph nodes in the cervical or supraclavicular areas. Respiratory Lungs are clear to auscultation without rhonchi or wheezing. Cardiovascular Regular rate and rhythm of heart without murmurs,clicks, gallops or rubs. Chest Chest is symmetric without chest wall deformities. Venous access device insertion site is unremarkable. Back/Spine Non-tender to palpation. Extremities No visible deformities, no cyanosis, clubbing or edema. Musculoskeletal No tenderness or swelling, normal range of motion without obvious weakness. Integumentary mild fissures on both thumbs with slight peeling noted bilaterally. No exudate or redness. Neurologic No sensory or motor deficits, normal cerebellar function, normal gait. Psychiatric Alert and oriented times three. Coherent speech. Verbalizes understanding of our discussions today. Laboratory:Test performed on Apr 06, 2021 09:14 Sodium 135 mmol/L Potassium 4.5 mmol/L Chloride 99 mmol/L CO2 25 mmol/L Anion Gap 15.5 BUN 21 mg/dL eGFR 103.0 mL/min Glucose 143 mg/dL Osmolality - Calculated 285 mOsm/kg Calcium 8.4 mg/dL Protein, Total 6.6 g/dL Albumin 4.3 g/dL Globulin 2.3 g/dL Bilirubin, Total 0.2 mg/dL ALT (SGPT) 12 U/L AST (SGOT) 10 U/L Alkaline Phosphatase 99 IU/L WBC 2.6 10 3/uL RBC 3.84 10 6/uL HGB 11.3 g/dL HCT 34.9 % MCV 90.9 fL MCH 29.4 pg MCHC 32.4 g/dL RDW 18.2 % Platelet Count 181 10 3/cmm MPV 9.5 fL Neutrophils 2.38 10 3/uL Lymphocytes 0.1 10 3/uL Monocytes 0.0 10 3/uL Eosinophils 0.0 10 3/uL Basophils 0.0 10 3/uL Neutrophil % 92.2 % Lymphocyte % 5.0 % Monocyte % 1.6 % Eosinophil % 0.0 % Basophils % 0.0 % NRBC % 0 % Impression: 1. Squamous cell carcinoma involving the upper lobe of the right lung, by clinical evaluation stage IIIB (T4, N2, M0). She has associated right upper lobe atelectasis. 2. Iron deficiency anemia. 3. Chronic pain for which she is on methadone, administered through methadone clinic. 4. She has history of substance abuse and opiate addiction. 5. COPD. 6. GERD. 7. History of hepatitis C, untreated. 8. Anxiety and depression. She has associated panic attacks. Plan/Problems Addressed at this Visit: 1. 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 She had associated right upper lobe atelectasis. She underwent bronchoscopy/EBUS on 02/03/2021, and she had biopsy-proven involvement in a subcarinal lymph node. There was a suspected satellite nodule in the right lower lobe by PET/CT. I reviewed the PET/CT images with Dr. Chaves, and it appeared that the primary tumor and satellite nodule could be encompassed within radiation field. As such, she was recommend undergo chemoradiation for primary treatment. She is advised that this treatment is not going to be curable. However, depending on the response to the recommended to under radiation concurrently with weekly carboplatin/paclitaxel chemotherapy. She began radiation with her week 1 carboplatin/paclitaxel infusion on 03/15/2021. She had some mild nausea and anorexia with the chemotherapy, and there was a drop in her white blood cell count following her initial treatment. With her week 2 carboplatin/paclitaxel she was given 2 days of Neupogen prophylactically. At this point she continues to have mild neutropenia and anemia, but her blood counts are adequate and she otherwise appears to be tolerating the treatment well. She will continue with her week 3 carboplatin/paclitaxel. Dosages remain the same, and she will continue the Neupogen prophylactically. A. HOLD week 4 carboplatin paclitaxel due to skin changes on her hands-fissues on thumbs- and decreased performance status. B. Steroid compliance confirmed. C. Today's labs were reviewed in detail and discussed with Mrs. Thakkar and a copy was given to her. WBC 2.6, hemoglobin 11.3, platelets 181,000 ANC is 2380. Potassium 4.5 random glucose 143 creatinine 0.6 LFTs are normal. Her weight is stable at 101.4. 2. She had evidence of iron deficiency anemia. She had tolerated oral iron poorly due to constipation. As such, she was given parenteral iron replacement with Injectafer. She tolerated it well, but during follow-up she has remained slightly anemic. Her hemoglobin is improved today at 11.3. 3. She has anxiety and depression. She has associated panic attacks. Thus far it is being managed adequately with lorazepam, which she is also using for nausea. A. REfill her prescription today. 4. She has history of untreated hepatitis C. With her chemotherapy and radiation there is a risk that this can be reactivated. Her baseline viral load was found to be negative, but it will require ongoing monitoring. 5. Follow-up plan A. We will plan to follow-up in 1 week with CBC CMP B. We will reassess her skin changes at that time to see if she is ready to proceed with week #4???which would be 1 week delayed. C. Ms. Thakkar was instructed to contact us in interim should questions or problems arise. Signed By: Kirstin Miles-, AOCNP Sean Tadeo MD <<Signature on File>>
--- NOTE | 2021-04-25 09:31 | ONCRAD TMN_ITS ---
Radiation Oncology Treatment Management Note Patient Name: Caridad Thakkar Date of : 1965 Date of Service: 04/25/2021 Attending Physician: Rober Chaves M.D. Caridad Thakkar is a 55 year-old white female diagnosed with a clinical stage clinical stage IIIB (T4N2) squamous cell carcinoma (PD-L1 TPS < 1) of the right upper lobe of the lung. The patient has received 52 Gy of a prescribed 60 Kurtz with an intensity modulated radiotherapy plan utilizing a step and shoot treatment technique. She has been prescribed carboplatin (AUC 2) and paclitaxel (50 mg/m???) weekly during therapy. Upon review of systems, she denied pulmonary symptoms. On physical examination, the patient weighed 102 lbs. Her temperature was 98.2 ???F with a blood pressure of 109/80 mmHg. The pulse was 106 bpm and her respiratory rate was 20. Oxygen saturation while breathing room air was 96%. There was no erythema within the treatment mota. Auscultation of the posterior lung mota identified bronchial breath sounds. Continue thoracic radiotherapy as prescribed. Signed by: Dr. Rober Chaves 04/25/2021 9:31:07 AM
[2021-04-26 10:05] LABS: Basophils % 0.6 %; Hematocrit 32.3 % (37.0-47.0); Hemoglobin 10.4 g/dL (11.5-15.3); Lymphocytes # 0.1 10^3/uL (0.8-4.8); Lymphocytes % 1.5 %; Mean Corpuscular HGB Conc 32.2 g/dL (30.0-36.0); Mean Corpuscular Hemoglobin 31.2 pg (28.0-34.0); Mean Platelet Volume 9.4 fL (7.4-10.4); Monocytes # 0.1 10^3/uL (0.2-0.9); Monocytes % 1.9 %; Neutrophils # 4.48 10^3/uL (1.8-7.7); Neutrophils % 95.6 %; Nucleated Red Blood Cells % 0 %; Platelet Count 138 10^3/cmm (130-400); Red Blood Count 3.33 10^6/uL (4.1-5.3); Red Cell Distribution Width 19.4 % (12.1-15.1); White Blood Count 4.7 10^3/uL (4.0-10.0)
[2021-04-26 10:23] LABS: Alanine Aminotransferase 10 U/L (0-33); Alkaline Phosphatase 95 IU/L (35-105); Anion Gap 17.4 (5-19); Aspartate Amino Transferase 11 U/L (0-32); Blood Urea Nitrogen 16 mg/dL (6-20); Calcium 8.3 mg/dL (8.5-10.5); Carbon Dioxide 23 mmol/L (22-29); Chloride 102 mmol/L (98-107); Globulin 2.5 g/dL (1.3-4.6); Glomerular Filtration Rate 86.2 mL/min (90-130); Glucose 126 mg/dL (65-115); Osmolality Calculated 289 mOsm/kg (285-295); Potassium 4.4 mmol/L (3.5-5.1); Sodium 138 mmol/L (136-145); Total Bilirubin 0.2 mg/dL (0.15-1.2); Total Protein 6.5 g/dL (6.6-8.7)
[2021-04-27] MEDS: palonosetron 0.25 mg/5 mL SDV IV (11:35)
[2021-04-27] MEDS: sodium chloride 0.9% 250 ML 75 ML IV (11:35)
[2021-04-27] MEDS: famotidine 20 mg/2 mL INJ IVP (11:36)
[2021-04-27] MEDS: diphenhydrAMINE 50 mg/mL SDV 1mL 25 MG IV (11:38)
--- NOTE | 2021-05-02 01:24 | ONC FU_ITS ---
[facility] Patient Note Patient: Caridad Thakkar Unit #: [id number]: 1965 Dictated By: Kirstin MilesDate of Visit: Apr 13, 2021 Onc MED Follow-Up/Prog Note Chief Complaint: Lung cancer. 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 She had presented initially to Dr. Pennington with complaints of swelling in her throat. Her chest x-ray showed elevated right hilum in association with a central opacity in the right upper lobe. The findings were suspicious for central malignancy involving the right hilum and adjacent mediastinum. Further evaluation with chest CT on 01/10/2021 showed a 2.0 x 4.0 right upper lobe mass with associated right upper lobe atelectasis. There was narrowing of the right upper lobe with left shift of the mediastinum from left to right. A subcarinal soft tissue density measuring 3.4 cm was felt to be consistent with enlarged lymph node. The upper abdominal structures appeared unremarkable. She had pulmonary consultation with Dr. Murillo on 01/24/2021. Staging PET/CT on 01/29/2021 showed FDG avid right upper lobe mass measuring 2.1 x 3.7 cm, SUV 16.9, consistent with primary malignancy. There was evidence of local metastatic disease in the subcarinal territory measuring 3.0 x 2.2 cm with SUV 14.9. A right paratracheal node measuring 1.9 cm also was consistent with metastatic disease. A right lower lung lesion adjacent to the pericardium measuring 1.7 cm was FDG avid with SUV 11.6 cm, consistent with a satellite nodule. On 02/03/2021 she underwent bronchoscopy with EBUS. There was noted to be visible mucosal irregularity starting very close to the indira with narrowing of the right mainstem bronchus. The appearance was consistent with malignancy. Endobronchial and transbronchial biopsies were obtained. EBUS showed evidence of mediastinal and hilar lymphadenopathy. FNA biopsy was obtained from a station 7 lymph node. Pathology on the station 7 lymph node biopsy were positive for squamous cell carcinoma. The PD-L1 expression to IHC 22C3 was < 1%. Dr Tadeo had seen her initially on 02/09/2021. By clinical evaluation, her disease appeared to to be stage IIIB (T4, N2, M0), but after discussion with Dr. Chaves, it was determined that her lung disease could be encompassed within a single radiation field, she was recommended to undergo treatment with radiation concurrently with weekly carboplatin/paclitaxel chemotherapy. At the time of her initial evaluation, she also was mildly anemic with transferrin saturation low at 7%, consistent with iron deficiency. As the anemia had not been correcting with oral iron supplementation, she was given parenteral iron replacement with Injectafer. Her medical history is otherwise significant for COPD and GERD. She has a history of untreated hepatitis C. She also has a history of chronic pain with associated substance abuse and opiate addiction, for which she is receiving treatment through a methadone clinic. She has a history of smoking for 40 years, previously up to 1-1/2 packs of cigarettes daily. She currently smokes 1/2 pack/day. INTERIM HISTORY: She began radiation and her week 1 carboplatin/paclitaxel infusion on 03/15/2021. She had some mild nausea and anorexia without treatment and she also did have a drop in her neutrophil count with her week 2 treatment on 03/22/2021. She was given Neupogen prophylactically for 2 days. She had dose reduction with cycle 3 and tolerated that well. She is here today for follow-up. She is due for week 4 chemotherapy. Her treatment was held last week due to skin changes/fissures in her thumbs and decreased performance status. She states overall she is feeling much better. Her hands have healed well. There is minor fissures at this time. She states she is cutting them with lotion at least twice a day and this is working well. She denies any new concerns. She is had no mouth sores, sore throat or difficulty swallowing. She continues to have a lot of situational/social anxiety in relation to her diagnosis as well as her significant others. She states he is just driving me crazy . Apparently her significant other has lots of memory issues and forgetfulness at this time. She denies any pain. She denies any nausea or vomiting. She has had no mouth sores, sore throat or difficulty swallowing. She denies any peripheral neuropathy. She denies any hearing changes. She denies vision changes or headaches. She states she is eating good for the most part. Her energy is good for the most part. Her ECOG is 1. Past Medical History: Anxiety Chronic low back pain Chronic obstructive pulmonary disease (Treated) Depression Gastroesophageal reflux disease Hepatitis C History of substance abuse Past Surgical History: section in 1982, 1986, and in 1992 Bronchoscopy with endobronchial and transbronchial biopsies and EBUS/FNA biopsies in 2020 Hysterectomy with unilateral oophorectomy in 2006 Laparoscopic surgery for ovarian cyst in 1994 Allergies: Azithromycin, Latex, Nalbuphine HCl, and Sulfa Antibiotics. Medications: Albuterol Sulfate 1 - 2 Puff(s) (of 108 (90 base) mcg/act) Aerosol Powder, Breath Activated Inhalation q 4 hours PRN Benadryl Allergy 2 (25 mg) Tablet Oral b.i.d. Dexamethasone 5 Tablet (of 4 mg) Oral Famotidine 1 (20 mg) Tablet Oral four times a day PRN Ibuprofen 1 (200 mg) Capsule Oral t.i.d. PRN LORazepam 0.5 - 1 Tablet (of 1 mg) Oral t.i.d. PRN Methadone HCl 1 (90 mg) Tablet Soluble Oral daily Mirtazapine 1 (30 mg) Tablet Oral daily Omeprazole Magnesium 1 (20 mg) Tablet, enteric coated Oral daily Prochlorperazine Maleate 1 Tablet (of 10 mg) Oral q 4 hours PRN Senna S 1 (8.6-50 mg) Tablet Oral t.i.d. Symbicort 1 Puff(s) (of 160-4.5 mcg/act) Aerosol Inhalation b.i.d. Tagamet HB 1 Tablet (of 200 mg) Tablet Oral daily Vitamin C 1 Capsule (of 500 mg) Oral daily Family History: Ms. Strongs mother at age 34: Breast Cancer, and Pancreatic Cancer, and hypertension, and osteoporosis. Ms. Ariane's father at age 75: stroke. Ms. Thakkar has 1 brother who is alive. She has 2 sisters: 2 alive. Father of stroke at age 75. Mother had breast cancer and pancreatitis. She also had diabetes. She at age 34. One brother and 2 sisters are in good health. A son at age 29, apparently due to accidental overdose. Social History: Ms. Thakkar is single and she is a disabled. She is an occasional smoker who has smoked 1.0 pack/day for 40 years. She is a former drinker. She has indicated exposure to the following products: cigarettes and marijuana. Patient has now decreased her smoking to 6 cigarettes per day. She is disabled. She has a history of smoking for 40 years, previously up to 1-1/2 packs of cigarettes daily. She is now down to smoking 1/2 pack/day. She has a history of heavy drinking. She quit 17 years ago. She had used IV drugs at around age 15 or 16. She subsequently developed opiate dependence. She is now attending a methadone clinic. Review Of Symptoms: <See Above> Vital Signs: Performed on Apr 13, 2021 10:31 Height - 62.00 in Weight - 100.2 lbs (HIGH) BSA - 1.42 sq.m BMI - 18.33 Temperature - 96.5 F (LOW) Pulse - 111 /min (HIGH) Respiration - 18 /min BP - 113/75 mm(hg) O2 Sat - 97 % Pain - 0,1 - No physically strenuous activity, but ambulatory and able to carry out light or sedentary work (e.g. office work, light house work). (ECOG) Physical Examination: Constitutional Alert, oriented, no acute distress. Skin pink, warm and dry. Very anxious today. Head Normocephalic; atraumatic. Eyes Conjunctivae and sclerae are clear and without icterus. Pupils are reactive and equal. ENMT No oral exudates, ulcers, masses, thrush or mucositis. Oropharynx clear. Tongue normal. Neck Supple without masses or thyromegaly. No jugular venous distension. Hematologic/Lymphatic No petechiae or purpura. No tender or palpable lymph nodes in the cervical or supraclavicular areas. Respiratory Lungs are clear to auscultation without rhonchi or wheezing. Cardiovascular Regular rate and rhythm of heart without murmurs,clicks, gallops or rubs. Chest Chest is symmetric without chest wall deformities. Venous access device insertion site is unremarkable. Back/Spine Non-tender to palpation. Extremities No visible deformities, no cyanosis, clubbing or edema. Musculoskeletal No tenderness or swelling, normal range of motion without obvious weakness. Integumentary minor fissures on both thumbs with NO peeling noted bilaterally. No exudate or redness. Neurologic No sensory or motor deficits, normal cerebellar function, normal gait. Psychiatric Alert and oriented times three. Coherent speech. Verbalizes understanding of our discussions today. Impression: 1. Squamous cell carcinoma involving the upper lobe of the right lung, by clinical evaluation stage IIIB (T4, N2, M0). She has associated right upper lobe atelectasis. 2. Iron deficiency anemia. 3. Chronic pain for which she is on methadone, administered through methadone clinic. 4. She has history of substance abuse and opiate addiction. 5. COPD. 6. GERD. 7. History of hepatitis C, untreated. 8. Anxiety and depression. She has associated panic attacks. Plan/Problems Addressed at this Visit: 1. 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 She had associated right upper lobe atelectasis. She underwent bronchoscopy/EBUS on 02/03/2021, and she had biopsy-proven involvement in a subcarinal lymph node. There was a suspected satellite nodule in the right lower lobe by PET/CT. I reviewed the PET/CT images with Dr. Chaves, and it appeared that the primary tumor and satellite nodule could be encompassed within radiation field. As such, she was recommend undergo chemoradiation for primary treatment. She is advised that this treatment is not going to be curable. However, depending on the response to the recommended to under radiation concurrently with weekly carboplatin/paclitaxel chemotherapy. She began radiation with her week 1 carboplatin/paclitaxel infusion on 03/15/2021. She had some mild nausea and anorexia with the chemotherapy, and there was a drop in her white blood cell count following her initial treatment. With her week 2 carboplatin/paclitaxel she was given 2 days of Neupogen prophylactically. At this point she continues to have mild neutropenia and anemia, but her blood counts are adequate and she otherwise appears to be tolerating the treatment well. A. Proceed with week 4 carboplatin paclitaxel???delayed 1 week due to recent fissures on her hands and thumbs and decreased performance status. That has dramatically improved. B. Steroid compliance confirmed. C. Today's labs were reviewed in detail and discussed with Mrs. Thakkar and a copy was given to her. WBC 4.7, hemoglobin is 11.0, platelets 1 26,000, ANC is 3520. Potassium 3.9 random glucose 87 creatinine 0.6 her LFTs are normal. Her weight today is 100.2. 2. She had evidence of iron deficiency anemia. She had tolerated oral iron poorly due to constipation. As such, she was given parenteral iron replacement with Injectafer. She tolerated it well, but during follow-up she has remained slightly anemic. Her hemoglobin is improved today at 11.0 3. She has anxiety and depression. She has associated panic attacks. A. Thus far it is being managed adequately with lorazepam, which she is also using for nausea. B. She had refill of her prescription on 04/06/2021. 4. She has history of untreated hepatitis C. With her chemotherapy and radiation there is a risk that this can be reactivated. Her baseline viral load was found to be negative, but it will require ongoing monitoring. 5. Follow-up plan A. We will plan to follow-up in 1 week with CBC CMP for consideration of week 5 chemotherapy with Carboplatin/paclitaxel. B. She was reminded to take her premed steroids the night before and the morning of chemotherapy. C. Ms. Thakkar was instructed to contact us in interim should questions or problems arise. Signed By: Kirstin Miles-, [facility] Sean Tadeo MD <<Signature on File>>
--- NOTE | 2021-05-02 12:51 | ONC FU_ITS ---
[facility] Patient Note Patient: Caridad Thakkar Unit #: [id number]: 1965 Dictated By: Kirstin MilesDate of Visit: Apr 27, 2021 Onc MED Follow-Up/Prog Note Chief Complaint: Lung cancer. 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 She had presented initially to Dr. Pennington with complaints of swelling in her throat. Her chest x-ray showed elevated right hilum in association with a central opacity in the right upper lobe. The findings were suspicious for central malignancy involving the right hilum and adjacent mediastinum. Further evaluation with chest CT on 01/10/2021 showed a 2.0 x 4.0 right upper lobe mass with associated right upper lobe atelectasis. There was narrowing of the right upper lobe with left shift of the mediastinum from left to right. A subcarinal soft tissue density measuring 3.4 cm was felt to be consistent with enlarged lymph node. The upper abdominal structures appeared unremarkable. She had pulmonary consultation with Dr. Murillo on 01/24/2021. Staging PET/CT on 01/29/2021 showed FDG avid right upper lobe mass measuring 2.1 x 3.7 cm, SUV 16.9, consistent with primary malignancy. There was evidence of local metastatic disease in the subcarinal territory measuring 3.0 x 2.2 cm with SUV 14.9. A right paratracheal node measuring 1.9 cm also was consistent with metastatic disease. A right lower lung lesion adjacent to the pericardium measuring 1.7 cm was FDG avid with SUV 11.6 cm, consistent with a satellite nodule. On 02/03/2021 she underwent bronchoscopy with EBUS. There was noted to be visible mucosal irregularity starting very close to the indira with narrowing of the right mainstem bronchus. The appearance was consistent with malignancy. Endobronchial and transbronchial biopsies were obtained. EBUS showed evidence of mediastinal and hilar lymphadenopathy. FNA biopsy was obtained from a station 7 lymph node. Pathology on the station 7 lymph node biopsy were positive for squamous cell carcinoma. The PD-L1 expression to IHC 22C3 was < 1%. Dr Tadeo had seen her initially on 02/09/2021. By clinical evaluation, her disease appeared to to be stage IIIB (T4, N2, M0), but after discussion with Dr. Chaves, it was determined that her lung disease could be encompassed within a single radiation field, she was recommended to undergo treatment with radiation concurrently with weekly carboplatin/paclitaxel chemotherapy. At the time of her initial evaluation, she also was mildly anemic with transferrin saturation low at 7%, consistent with iron deficiency. As the anemia had not been correcting with oral iron supplementation, she was given parenteral iron replacement with Injectafer. Her medical history is otherwise significant for COPD and GERD. She has a history of untreated hepatitis C. She also has a history of chronic pain with associated substance abuse and opiate addiction, for which she is receiving treatment through a methadone clinic. She has a history of smoking for 40 years, previously up to 1-1/2 packs of cigarettes daily. She currently smokes 1/2 pack/day. INTERIM HISTORY: She began radiation and her week 1 carboplatin/paclitaxel infusion on 03/15/2021. She had some mild nausea and anorexia without treatment and she also did have a drop in her neutrophil count with her week 2 treatment on 03/22/2021. She was given Neupogen prophylactically for 2 days. She had dose reduction with cycle 3 and tolerated that well. She is here today for follow-up. She is due for week 5 chemotherapy. Her treatment was held April 05, 2021 due to skin changes/fissures in her thumbs and decreased performance status. She was able to pursue week 4 chemotherapy on April 13, 2021. She did have support with growth factors/Zarxio for 2 days post week 4. She was not treated the week of April 19, 2021 due to a platelet count of 93,000. She is here today for follow-up and consideration of week 5 chemotherapy. Her last chemotherapy with carbo [place] paclitaxel was on April 13, 2021. She has no new concerns today. She states overall she feels pretty good. She still has social and situational anxiety related to her significant other also been diagnosed with cancer. She states it is no worse but it is no better either. She is coping with that well. Her appetite is fair. She states overall it is unchanged. Her energy is normal for her although she tires easily but recovers well with rest. She denies any nausea or vomiting. She denies any peripheral neuropathy that is worse than her normal . She denies any diarrhea or constipation. She is had no urinary changes. She denies any lower extremity edema or leg cramps. Her ECOG is 1. Past Medical History: Anxiety Chronic low back pain Chronic obstructive pulmonary disease (Treated) Depression Gastroesophageal reflux disease Hepatitis C History of substance abuse Past Surgical History: section in 1982, 1986, and in 1992 Bronchoscopy with endobronchial and transbronchial biopsies and EBUS/FNA biopsies in 2020 Hysterectomy with unilateral oophorectomy in 2006 Laparoscopic surgery for ovarian cyst in 1994 Allergies: Azithromycin, Latex, Nalbuphine HCl, and Sulfa Antibiotics. Medications: Albuterol Sulfate 1 - 2 Puff(s) (of 108 (90 base) mcg/act) Aerosol Powder, Breath Activated Inhalation q 4 hours PRN Benadryl Allergy 2 (25 mg) Tablet Oral b.i.d. Dexamethasone 5 Tablet (of 4 mg) Oral Famotidine 1 (20 mg) Tablet Oral four times a day PRN Ibuprofen 1 (200 mg) Capsule Oral t.i.d. PRN LORazepam 0.5 - 1 Tablet (of 1 mg) Oral t.i.d. PRN Methadone HCl 1 (90 mg) Tablet Soluble Oral daily Mirtazapine 1 (30 mg) Tablet Oral daily Omeprazole Magnesium 1 (20 mg) Tablet, enteric coated Oral daily Prochlorperazine Maleate 1 Tablet (of 10 mg) Oral q 4 hours PRN Senna S 1 (8.6-50 mg) Tablet Oral t.i.d. Symbicort 1 Puff(s) (of 160-4.5 mcg/act) Aerosol Inhalation b.i.d. Tagamet HB 1 Tablet (of 200 mg) Tablet Oral daily Vitamin C 1 Capsule (of 500 mg) Oral daily Family History: Ms. Thakkar's mother at age 34: Breast Cancer, and Pancreatic Cancer, and hypertension, and osteoporosis. Ms. Thakkar's father at age 75: stroke. Ms. Thakkar has 1 brother who is alive. She has 2 sisters: 2 alive. Father of stroke at age 75. Mother had breast cancer and pancreatitis. She also had diabetes. She at age 34. One brother and 2 sisters are in good health. A son at age 29, apparently due to accidental overdose. Social History: Ms. Thakkar is single and she is a disabled. She is an occasional smoker who has smoked 1.0 pack/day for 40 years. She is a former drinker. She has indicated exposure to the following products: cigarettes and marijuana. Patient has now decreased her smoking to 6 cigarettes per day. She is disabled. She has a history of smoking for 40 years, previously up to 1-1/2 packs of cigarettes daily. She is now down to smoking 1/2 pack/day. She has a history of heavy drinking. She quit 17 years ago. She had used IV drugs at around age 15 or 16. She subsequently developed opiate dependence. She is now attending a methadone clinic. Review Of Symptoms: <See Above> Vital Signs: Performed on Apr 27, 2021 10:55 Height - 62.00 in Weight - 104.4 lbs (HIGH) BSA - 1.45 sq.m BMI - 19.10 Temperature - 96.9 F (LOW) Pulse - 110 /min (HIGH) Respiration - 18 /min BP - 102/76 mm(hg) O2 Sat - 98 % Pain - 0,1 - No physically strenuous activity, but ambulatory and able to carry out light or sedentary work (e.g. office work, light house work). (ECOG) Physical Examination: Constitutional Alert, oriented, no acute distress. Skin pink, warm and dry. Very anxious today. Head Normocephalic; atraumatic. Eyes Conjunctivae and sclerae are clear and without icterus. Pupils are reactive and equal. Neck Supple without masses or thyromegaly. No jugular venous distension. Hematologic/Lymphatic No petechiae or purpura. No tender or palpable lymph nodes in the cervical or supraclavicular areas. Respiratory She has better airflow in her lung mota bilaterally. There was slight wheeze in the base bilaterally but that diminished and resolved with a deep breath. Cardiovascular Regular rate and rhythm of heart without murmurs,clicks, gallops or rubs. Chest Chest is symmetric without chest wall deformities. Venous access device insertion site is unremarkable. Back/Spine Non-tender to palpation. Extremities No visible deformities, no cyanosis, clubbing or edema. Musculoskeletal No tenderness or swelling, normal range of motion without obvious weakness. Integumentary minor fissures on both thumbs with NO peeling noted bilaterally. No exudate or redness. Improved from 04/13/2021 exam. Neurologic No sensory or motor deficits, normal cerebellar function, normal gait. Psychiatric Alert and oriented times three. Coherent speech. Verbalizes understanding of our discussions today. Impression: 1. Squamous cell carcinoma involving the upper lobe of the right lung, by clinical evaluation stage IIIB (T4, N2, M0). She has associated right upper lobe atelectasis. 2. Iron deficiency anemia. 3. Chronic pain for which she is on methadone, administered through methadone clinic. 4. She has history of substance abuse and opiate addiction. 5. COPD. 6. GERD. 7. History of hepatitis C, untreated. 8. Anxiety and depression. She has associated panic attacks. Plan/Problems Addressed at this Visit: 1. Squamous cell carcinoma involving the upper lobe of the right lung, by clinical evaluation stage IIIB (T4, N2, M0). She had associated right upper lobe atelectasis. She underwent bronchoscopy/EBUS on 02/03/2021, and she had biopsy-proven involvement in a subcarinal lymph node. There was a suspected satellite nodule in the right lower lobe by PET/CT. Dr Tadeo reviewed the PET/CT images with Dr. Chaves, and it appeared that the primary tumor and satellite nodule could be encompassed within radiation field. As such, she was recommend undergo chemoradiation for primary treatment. She is advised that this treatment is not going to be curable. However, depending on the response to the recommended to under radiation concurrently with weekly carboplatin/paclitaxel chemotherapy. She began radiation with her week 1 carboplatin/paclitaxel infusion on 03/15/2021. She had some mild nausea and anorexia with the chemotherapy, and there was a drop in her white blood cell count following her initial treatment. With her week 2 carboplatin/paclitaxel she was given 2 days of Neupogen prophylactically. At this point she continues to have mild neutropenia and anemia, but her blood counts are adequate and she otherwise appears to be tolerating the treatment well. Week 4 carboplatin paclitaxel was held for 1 week due to skin changes/fissures in her thumbs and skin peeling. She was able to continue with her week 4 carboplatin/paclitaxel on April 13, 2021. Dosages remain the same, and she will continue the Neupogen prophylactically. Her week 4 chemotherapy was not given on 04/20/2021 as planned due to a platelet count of 93,000. Her platelets have now recovered to 138,000 today. A. A. Proceed with week 5 carboplatin paclitaxel???delayed 1 week due to mild thrombocytopenia. B. Steroid compliance confirmed. C. Today's labs were reviewed in detail and discussed with Ms. Thakkar and a copy was given to her. WBC 4.7, hemoglobin 10.4, platelets 138,000, ANC is 4480. Potassium 4.4, random glucose 126, creatinine 0.7 and her LFTs are normal. Her weight is improved today 104.4. 2. She had evidence of iron deficiency anemia. She had tolerated oral iron poorly due to constipation. As such, she was given parenteral iron replacement with Injectafer on February 16 and February 22, 2021.. She tolerated it well, but during follow-up she has remained slightly anemic. 3. She has anxiety and depression. She has associated panic attacks. A. Thus far it is being managed adequately with lorazepam, which she is also using for nausea. B. She had refill of her prescription on 04/06/2021. 4. She has history of untreated hepatitis C. With her chemotherapy and radiation there is a risk that this can be reactivated. Her baseline viral load was found to be negative, but it will require ongoing monitoring. A. Her LFTs have remained normal to date. 5. Follow-up plan A. We will plan to follow-up in 1 week with CBC CMP for consideration of week 6 chemotherapy with Carboplatin/paclitaxel. B. She was reminded to take her premed steroids the night before and the morning of chemotherapy. C. Ms. Thakkar was instructed to contact us in interim should questions or problems arise. Signed By: Kirstin Miles-YANNI, AOUZMA Tadeo MD <<Signature on File>>
== END 2021-04-27 23:59 | disposition home or self-care (01) ==
LOC: ONCMED 05:45
PROVIDERS: Internal Medicine Hematology & Oncology; Internal Medicine Medical Oncology; Absent Provider Radiology Radiation Oncology; PCP Family Medicine; Visit Provider Nurse Practitioner
DX: Z51.0 Encounter for antineoplastic radiation therapy (principal); Z51.11 Encounter for antineoplastic chemotherapy; C34.11 Malignant neoplasm of upper lobe, right bronchus or lung; J44.9 Chronic obstructive pulmonary disease, unspecified; J98.11 Atelectasis; F32.9 Major depressive disorder, single episode, unspecified; F41.0 Panic disorder [episodic paroxysmal anxiety]; K21.9 Gastro-esophageal reflux disease without esophagitis; Z86.19 Personal history of other infectious and parasitic diseases; Z79.899 Other long term (current) drug therapy
CPT/HCPCS: 36415; 36591; 77336; 77386; 80053; 85025; 96367; 96372; 96375; 96413; 96417; 99214; J1100; J1200; J2469; J3490; J7030; J7040; J7050; J9045; J9267; Q5101

== ENCOUNTER 2021-05-12 05:46 | Outpatient (RCR) | payer MEDICARE, MEDICAID, SELFPAY ==
[2021-05-04 09:07] LABS: Basophils % 0.3 %; Eosinophils % 0.5 %; Hematocrit 31.7 % (37.0-47.0); Hemoglobin 10.4 g/dL (11.5-15.3); Lymphocytes # 0.3 10^3/uL (0.8-4.8); Lymphocytes % 6.4 %; Mean Corpuscular HGB Conc 32.8 g/dL (30.0-36.0); Mean Corpuscular Hemoglobin 31.4 pg (28.0-34.0); Mean Corpuscular Volume 95.8 fL (81-99); Mean Platelet Volume 9.4 fL (7.4-10.4); Monocytes # 0.7 10^3/uL (0.2-0.9); Monocytes % 17.3 %; Neutrophils # 2.95 10^3/uL (1.8-7.7); Nucleated Red Blood Cells % 0 %; Platelet Count 234 10^3/cmm (130-400); Red Blood Count 3.31 10^6/uL (4.1-5.3); Red Cell Distribution Width 18.6 % (12.1-15.1); White Blood Count 3.9 10^3/uL (4.0-10.0)
[2021-05-04 10:42] LABS: Alanine Aminotransferase 18 U/L (0-33); Albumin Level 3.8 g/dL (3.5-5.2); Alkaline Phosphatase 82 IU/L (35-105); Anion Gap 14.9 (5-19); Aspartate Amino Transferase 15 U/L (0-32); Blood Urea Nitrogen 18 mg/dL (6-20); Calcium 8.6 mg/dL (8.5-10.5); Carbon Dioxide 25 mmol/L (22-29); Chloride 101 mmol/L (98-107); Globulin 2.7 g/dL (1.3-4.6); Glomerular Filtration Rate 86.2 mL/min (90-130); Glucose 88 mg/dL (65-115); Osmolality Calculated 285 mOsm/kg (285-295); Potassium 3.9 mmol/L (3.5-5.1); Sodium 137 mmol/L (136-145); Total Bilirubin 0.2 mg/dL (0.15-1.2); Total Protein 6.5 g/dL (6.6-8.7)
--- NOTE | 2021-05-13 07:50 | ONC FU_ITS ---
Dr. Tadeo Patient Follow-Up Note Patient: Caridad Thakkar Unit #: [id number]: 1965 Dicatated By: Sean Tadeo M.D.Date of Visit:May 12, 2021 Onc Med Follow-up/Prog Note Chief Complaint: Lung cancer. 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 She had presented initially to Dr. Pennington with complaints of swelling in her throat. Her chest x-ray showed elevated right hilum in association with a central opacity in the right upper lobe. The findings were suspicious for central malignancy involving the right hilum and adjacent mediastinum. Further evaluation with chest CT on 01/10/2021 showed a 2.0 x 4.0 right upper lobe mass with associated right upper lobe atelectasis. There was narrowing of the right upper lobe with left shift of the mediastinum from left to right. A subcarinal soft tissue density measuring 3.4 cm was felt to be consistent with enlarged lymph node. The upper abdominal structures appeared unremarkable. She had pulmonary consultation with Dr. Murillo on 01/24/2021. Staging PET/CT on 01/29/2021 showed FDG avid right upper lobe mass measuring 2.1 x 3.7 cm, SUV 16.9, consistent with primary malignancy. There was evidence of local metastatic disease in the subcarinal territory measuring 3.0 x 2.2 cm with SUV 14.9. A right paratracheal node measuring 1.9 cm also was consistent with metastatic disease. A right lower lung lesion adjacent to the pericardium measuring 1.7 cm was FDG avid with SUV 11.6 cm, consistent with a satellite nodule. On 02/03/2021 she underwent bronchoscopy with EBUS. There was noted to be visible mucosal irregularity starting very close to the indira with narrowing of the right mainstem bronchus. The appearance was consistent with malignancy. Endobronchial and transbronchial biopsies were obtained. EBUS showed evidence of mediastinal and hilar lymphadenopathy. FNA biopsy was obtained from a station 7 lymph node. Pathology on the station 7 lymph node biopsy were positive for squamous cell carcinoma. The PD-L1 expression to IHC 22C3 was < 1%. I had seen her initially on 02/09/2021. By clinical evaluation, her disease appeared to to be stage IIIB (T4, N2, M0), but after discussion with Dr. Chaves, it was determined that her lung disease could be encompassed within a single radiation field, she was recommended to undergo treatment with radiation concurrently with weekly carboplatin/paclitaxel chemotherapy. At the time of her initial evaluation, she also was mildly anemic with transferrin saturation low at 7%, consistent with iron deficiency. As the anemia had not been correcting with oral iron supplementation, she was given parenteral iron replacement with Injectafer. Her medical history is otherwise significant for COPD and GERD. She has a history of untreated hepatitis C. She also has a history of chronic pain with associated substance abuse and opiate addiction, for which she is receiving treatment through a methadone clinic. She has a history of smoking for 40 years, previously up to 1-1/2 packs of cigarettes daily. She currently smokes 1/2 pack/day. INTERIM HISTORY: She began radiation concurrently with carboplatin/paclitaxel chemotherapy on 03/15/2021. She completed radiation on 04/29/2021 to a total dose of 6000 cGy. She was able to tolerate the chemotherapy with acceptable toxicity, though she was not entirely compliant with the treatment, and she ended up completing a total of 5 weekly infusions of carboplatin/paclitaxel. She is feeling pretty good generally. She does have fatigue, but her energy is better now. She does complain that her arms feel weak. Her ECOG score is 1. She has good appetite. She has not had fever or night sweats, she says she gets hot easily. She has not had sore throat, but she does have some hoarseness. She has cough productive of brownish or green-colored sputum. She does not complain of shortness of breath. She does have some chest pain. She still has occasional nausea and occasional acid reflux. Bowel and bladder function have been okay. She is having a lot of joint pain, particularly the shoulders, hands, knees, and feet. She does not complain of headache. She does have some issues with balance and she has some numbness/tingling in her feet. Medications: Albuterol Sulfate 1 - 2 Puff(s) (of 108 (90 base) mcg/act) Aerosol Powder, Breath Activated Inhalation q 4 hours PRN, Benadryl Allergy 2 (25 mg) Tablet Oral b.i.d., Dexamethasone 5 Tablet (of 4 mg) Oral, Famotidine 1 (20 mg) Tablet Oral four times a day PRN, Ibuprofen 1 (200 mg) Capsule Oral t.i.d. PRN, LORazepam 0.5 - 1 Tablet (of 1 mg) Oral t.i.d. PRN, Methadone HCl 1 (90 mg) Tablet Soluble Oral daily, Mirtazapine 1 (30 mg) Tablet Oral daily, Omeprazole Magnesium 1 (20 mg) Tablet, enteric coated Oral daily, Prochlorperazine Maleate 1 Tablet (of 10 mg) Oral q 4 hours PRN, Senna S 1 (8.6-50 mg) Tablet Oral t.i.d., Symbicort 1 Puff(s) (of 160-4.5 mcg/act) Aerosol Inhalation b.i.d., Tagamet HB 1 Tablet (of 200 mg) Tablet Oral daily, Vitamin C 1 Capsule (of 500 mg) Oral daily Allergies: Azithromycin, Latex, Nalbuphine HCl, and Sulfa Antibiotics. Vital Signs: Performed on May 12, 2021 13:50 Height - 62.00 in Weight - 102.2 lbs (LOW) BSA - 1.44 sq.m BMI - 18.69 Temperature - 97.7 F (LOW) Pulse - 112 /min (HIGH) Respiration - 20 /min BP - 132/77 mm(hg) O2 Sat - 96 % Pain - 0 Fatigue - 0 Physical Examination: Constitutional - She appears chronically ill, Eyes - Sclerae nonicteric. Conjunctivae clear, ENMT - No lesions noted in the oral cavity, Hematologic/Lymphatic - No cervical, clavicular, or axillary adenopathy, Respiratory - Lungs show slightly coarse breath sounds and diminished air movement bilaterally, Cardiovascular - Heart rhythm is regular. There is no murmur, gallop, or rub noted, Abdomen - Soft. Liver and spleen are not enlarged. There is no abdominal mass or ascites noted and there is no inguinal adenopathy, Extremities - No edema, Neurologic - No focal neurologic deficits noted. Lab/Imaging: Her laboratory studies from 05/04/2021 included CBC showing hemoglobin 10.4 g, white blood cell count 3900, and platelet count 234,000. Comprehensive metabolic profile was unremarkable. Problem List: 1. Squamous cell carcinoma involving the upper lobe of the right lung, by clinical evaluation stage IIIB (T4, N2, M0). She has associated right upper lobe atelectasis. 2. Iron deficiency anemia. 3. Chronic pain for which she is on methadone, administered through methadone clinic. 4. She has history of substance abuse and opiate addiction. 5. COPD. 6. GERD. 7. History of hepatitis C, untreated. 8. Anxiety and depression. She has associated panic attacks. Problems Addressed with this Encounter and Plan: 1. 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 She had associated right upper lobe atelectasis. She underwent bronchoscopy/EBUS on 02/03/2021, and she had biopsy-proven involvement in a subcarinal lymph node. There was a suspected satellite nodule in the right lower lobe by PET/CT. I reviewed the PET/CT images with Dr. Chaves, and it appeared that the primary tumor and satellite nodule could be encompassed within radiation field. As such, she was recommend undergo chemoradiation for primary treatment. She is advised that this treatment is not going to be curable. However, depending on the response to the recommended to under radiation concurrently with weekly carboplatin/paclitaxel chemotherapy. She began radiation concurrently with carboplatin/paclitaxel chemotherapy on 03/15/2021. She completed radiation on 04/29/2021 to a total dose of 6000 cGy. She was not entirely compliant with the chemotherapy, and she ended up completing a total of 5 weekly infusions of carboplatin/paclitaxel. Overall, though, she tolerated the treatment well. As yet she has not been evaluated for response. We discussed the fact that this treatment is not expected to be curative, but if she is showing response, she would then be eligible for maintenance immunotherapy. She indicates that she is interested in pursuing any treatment that might be helpful. As such, she will be scheduled for a restaging chest CT. Assuming she is showing response, she will then be given the option to be begin maintenance immunotherapy with durvalumab. 2. She had evidence of iron deficiency anemia. She had tolerated oral iron poorly due to constipation. As such, she was given parenteral iron replacement with Injectafer. She tolerated it well, but during follow-up she has remained slightly anemic. She will require ongoing monitoring of her serum iron studies. Signed By: Sean Tadeo M.D. <<Signature on File>>
== END 2021-05-28 23:59 | disposition home or self-care (01) ==
LOC: ONCMED 05:46
PROVIDERS: Internal Medicine Hematology & Oncology; Absent Provider Radiology Radiation Oncology; PCP Family Medicine; Visit Provider Internal Medicine Medical Oncology
DX: Z51.0 Encounter for antineoplastic radiation therapy (principal); C34.11 Malignant neoplasm of upper lobe, right bronchus or lung; D50.9 Iron deficiency anemia, unspecified; J98.11 Atelectasis; G89.3 Neoplasm related pain (acute) (chronic); G89.29 Other chronic pain; J44.9 Chronic obstructive pulmonary disease, unspecified; K21.9 Gastro-esophageal reflux disease without esophagitis; F41.9 Anxiety disorder, unspecified; F32.9 Major depressive disorder, single episode, unspecified; F41.0 Panic disorder [episodic paroxysmal anxiety]; F11.11 Opioid abuse, in remission; Z86.19 Personal history of other infectious and parasitic diseases; Z79.899 Other long term (current) drug therapy
CPT/HCPCS: 36415; 36591; 77014; 77336; 77386; 77427; 80053; 85025; 96523; 99214

== ENCOUNTER 2021-05-18 08:29 | Outpatient (CLI) | payer MEDICARE, MEDICAID, SELFPAY ==
--- NOTE | 2021-05-18 09:00 | CT_ITS ---
WS: [id number] CT CHEST WITH INTRAVENOUS CONTRAST HISTORY: LUNG CANCER TECHNIQUE: Contiguous 5 mm axial imaging performed on the thorax. Coronal and sagittal reformats are submitted. All CT scans at [facility] use at least one of these dose optimization techniq ues: automated exposure control; mA and/or kV adjustment per patient size (includes targeted exams wh ere dose is matched to clinical indication); or iterative reconstruction. CONTRAST: Omnipaque 300; 75 mL IV. DLP: 544.66 mGycm COMPARISON: 01/10/2021, PET/CT 01/29/2021 Lungs and central airway: Severe emphysema. There is been a significant decrease in size of the media l RIGHT upper lobe paratracheal mass since 01/10/2015. There is very minimal residual linear soft tiss ue stranding. The largest component of the residual mass measures approximately 1.7 x 1.2 cm. Persist ent but slightly improved postobstructive atelectasis of the RIGHT upper lobe with volume loss. The p leural thickening at the apex demonstrates mild improvement. No progression. Satellite nodule abuttin g the RIGHT pericardium has essentially resolved. There is some atelectasis present but no residual m ass. Pleura: No effusions. Heart and pericardium: Normal size heart. No effusion. Mediastinum and [place]: RIGHT subclavian Mediport. RIGHT paratracheal lymph node has significantly impr berta. Largest diameter is now 6 mm. The necrotic subcarinal lymph node has essentially resolved. Mild soft tissue thickening at the LEFT hilum is unchanged. Vessels: Mild atherosclerosis aorta. Pulmonary artery size is slightly enlarged. Chest wall and lower neck: No soft tissue masses. Upper abdomen: Mildly heterogeneous appearance of the liver. Hepatic steatosis along the falciform li gament. There is mild central biliary dilatation and common bile duct dilatation which is been presen t since at least 06/25/2019 without progression. The entire pancreatic head was not included. No adren al mass. Osseous structures: Mild increase in thoracic kyphosis. No osteoblastic or osteolytic bone disease. CT/CT chest w con* [id number] IMPRESSION: 1. Significant improvement in the RIGHT upper lobe neoplasm since 01/29/2021. Mi nimal residual medial RIGHT upper lobe lung mass measures 1.7 x 1.2 cm. 2. Essentially complete resolution of the nodule adjacent to the pericardium. 3. Persistent but slightly improved partial atelectasis RIGHT upper lobe. 4. Significant improvement in the RIGHT paratracheal and subcarinal lymphadeno jose. Lymph nodes are less than a centimeter now. No new lymph nodes. 5. Chronic central hepatic bile duct dilatation and common bile duct dilatatio n. Unchanged since at least 06/25/2019 of uncertain etiology.
[2021-05-18] MEDS: iohexol 300 mg/mL 100 mL Btl IV (09:18)
== END 2021-05-18 08:30 | disposition home or self-care (01) ==
PROVIDERS: PCP Family Medicine; Visit Provider Internal Medicine Medical Oncology
DX: C34.11 Malignant neoplasm of upper lobe, right bronchus or lung (principal); J98.11 Atelectasis
CPT/HCPCS: 71260; Q9967

== ENCOUNTER 2021-06-07 05:37 | Outpatient (RCR) | payer MEDICARE, MEDICAID, SELFPAY ==
--- NOTE | 2021-06-03 10:08 | ONCRAD EPV_ITS ---
Radiation Oncology Follow-Up Note Patient Name: Caridad Thakkar Date of : 1965 Date of Service: 06/03/2021 Attending Physician: Rober Chaves M.D. Caridad Thakkar returned to my office this morning for a routinely scheduled follow-up appointment. 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 Thoracic radiation therapy was delivered between the dates of March 15, 2021 through April 29, 2021. A prescribed dose of 60 Gy was delivered in 30 fractions encompassing 46 elapsed days. On review of systems, she denied pulmonary complaints. On physical examination, she weighed 106 lbs and her temperature was 97.6???F. Her blood pressure was 109/61 mmHg. The pulse was 94 bpm and the respiratory rate was 20 breaths per minute. Her oxygen saturation while breathing ambient air was 96%. Auscultation of the posterior lung mota identified bronchial breath sounds. In summary, Ms. Thakkar returned for a routine post-radiotherapy follow-up. Recent CT imaging demonstrated a significant response to treatment. She will begin immunotherapy as scheduled with her medical oncologist. Signed by: Dr. Rober Chaves 06/03/2021 10:30:47 AM
--- NOTE | 2021-06-03 10:31 | ONCRAD EPV_ITS ---
Radiation Oncology Follow-Up Note Patient Name: Caridad Thakkar Date of : 1965 Date of Service: 06/03/2021 Attending Physician: Rober Chaves M.D. Caridad Thakkar returned to my office this morning for a routinely scheduled follow-up appointment. 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 Thoracic radiation therapy was delivered between the dates of March 15, 2021 through April 29, 2021. A prescribed dose of 60 Gy was delivered in 30 fractions encompassing 46 elapsed days. On review of systems, she described On physical examination, she weighed 97 lbs and her temperature was 98.2???F. Her blood pressure was 101/66 mmHg. The pulse was 78 bpm and the respiratory rate was 18 breaths per minute. Her oxygen saturation while breathing ambient air was 94%. Auscultation of the posterior lung mota identified bronchial breath sounds. In summary, Ms. Thakkar returned for a routine post-radiotherapy follow-up. Recent CT imaging demonstrated a significant response to treatment. She will begin immunotherapy as scheduled with her medical oncologist. Signed by: Dr. Rober Chaves 06/03/2021 10:30:18 AM
[2021-06-07 09:40] LABS: Basophils % 0.4 %; Eosinophils # 0.2 10^3/uL (0.0-0.8); Eosinophils % 2.8 %; Hematocrit 34.5 % (37.0-47.0); Hemoglobin 11.4 g/dL (11.5-15.3); Lymphocytes # 0.5 10^3/uL (0.8-4.8); Lymphocytes % 8.2 %; Mean Corpuscular Hemoglobin 34.4 pg (28.0-34.0); Mean Corpuscular Volume 104.2 fL (81-99); Mean Platelet Volume 8.8 fL (7.4-10.4); Monocytes # 0.7 10^3/uL (0.2-0.9); Monocytes % 12.8 %; Neutrophils # 4.25 10^3/uL (1.8-7.7); Neutrophils % 74.6 %; Nucleated Red Blood Cells % 0 %; Platelet Count 210 10^3/cmm (130-400); Red Blood Count 3.31 10^6/uL (4.1-5.3); Red Cell Distribution Width 14.9 % (12.1-15.1); White Blood Count 5.7 10^3/uL (4.0-10.0)
[2021-06-07 10:00] LABS: Alanine Aminotransferase 10 U/L (0-33); Albumin Level 3.9 g/dL (3.5-5.2); Alkaline Phosphatase 70 IU/L (35-105); Aspartate Amino Transferase 11 U/L (0-32); Blood Urea Nitrogen 23 mg/dL (6-20); Calcium 8.3 mg/dL (8.5-10.5); Carbon Dioxide 26 mmol/L (22-29); Chloride 101 mmol/L (98-107); Globulin 2.4 g/dL (1.3-4.6); Glomerular Filtration Rate 86.2 mL/min (90-130); Glucose 83 mg/dL (65-115); Osmolality Calculated 289 mOsm/kg (285-295); Sodium 138 mmol/L (136-145); Total Bilirubin 0.3 mg/dL (0.15-1.2); Total Protein 6.3 g/dL (6.6-8.7)
[2021-06-07] MEDS: sodium chloride 0.9% 250 ML 75 ML IV (11:15)
--- NOTE | 2021-06-07 13:03 | ONC FU_ITS ---
Dr. Tadeo Patient Follow-Up Note Patient: Caridad Thakkar Unit #: [id number]: 1965 Dicatated By: Sean Tadeo M.D.Date of Visit:Jun 07, 2021 Onc Med Follow-up/Prog Note Chief Complaint: Lung cancer. 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 She had presented initially to Dr. Pennington with complaints of swelling in her throat. Her chest x-ray showed elevated right hilum in association with a central opacity in the right upper lobe. The findings were suspicious for central malignancy involving the right hilum and adjacent mediastinum. Further evaluation with chest CT on 01/10/2021 showed a 2.0 x 4.0 right upper lobe mass with associated right upper lobe atelectasis. There was narrowing of the right upper lobe with left shift of the mediastinum from left to right. A subcarinal soft tissue density measuring 3.4 cm was felt to be consistent with enlarged lymph node. The upper abdominal structures appeared unremarkable. She had pulmonary consultation with Dr. Murillo on 01/24/2021. Staging PET/CT on 01/29/2021 showed FDG avid right upper lobe mass measuring 2.1 x 3.7 cm, SUV 16.9, consistent with primary malignancy. There was evidence of local metastatic disease in the subcarinal territory measuring 3.0 x 2.2 cm with SUV 14.9. A right paratracheal node measuring 1.9 cm also was consistent with metastatic disease. A right lower lung lesion adjacent to the pericardium measuring 1.7 cm was FDG avid with SUV 11.6 cm, consistent with a satellite nodule. On 02/03/2021 she underwent bronchoscopy with EBUS. There was noted to be visible mucosal irregularity starting very close to the indira with narrowing of the right mainstem bronchus. The appearance was consistent with malignancy. Endobronchial and transbronchial biopsies were obtained. EBUS showed evidence of mediastinal and hilar lymphadenopathy. FNA biopsy was obtained from a station 7 lymph node. Pathology on the station 7 lymph node biopsy were positive for squamous cell carcinoma. The PD-L1 expression to IHC 22C3 was < 1%. I had seen her initially on 02/09/2021. By clinical evaluation, her disease appeared to to be stage IIIB (T4, N2, M0), but after discussion with Dr. Chaves, it was determined that her lung disease could be encompassed within a single radiation field, she was recommended to undergo chemoradiation. She began radiation concurrently with carboplatin/paclitaxel chemotherapy on 03/15/2021. She completed radiation on 04/29/2021 to a total dose of 6000 cGy. She was able to tolerate the chemotherapy with acceptable toxicity, though she was not entirely compliant with the treatment, and she ended up completing a total of 5 weekly infusions of carboplatin/paclitaxel. Her restaging chest CT on 05/18/2021 showed a significant decrease in the medial right upper lobe paratracheal mass measuring 1.7 x 1.2 cm. There was persistent but slightly improved postobstructive atelectasis in the right upper lobe. A satellite nodule abutting the right pericardium was noted to have essentially resolved. There was no evidence of disease progression. With that finding, she was recommended to proceed with maintenance immunotherapy. At the time of her initial evaluation, she also was mildly anemic with transferrin saturation low at 7%, consistent with iron deficiency. As the anemia had not been correcting with oral iron supplementation, she was given parenteral iron replacement with Injectafer. Her medical history is otherwise significant for COPD and GERD. She has a history of untreated hepatitis C. She also has a history of chronic pain with associated substance abuse and opiate addiction, for which she is receiving treatment through a methadone clinic. She has a history of smoking for 40 years, previously up to 1-1/2 packs of cigarettes daily. She currently smokes 1/2 pack/day. INTERIM HISTORY: She is seen for a follow-up visit. She says she feels good. Her energy is somewhat better. She is able to do light work. ECOG score is 1. She has good appetite. She has not had fever. She has very occasional episodes of sweating at night. She has a little bit of sore throat. She has been coughing up brownish sputum, which she thinks is related to her effort to quit smoking. She is now down to 5 cigarettes/day. Her breathing has been okay. She does not complain of chest pain. She has no GI or complaints. She has been having some pain in the neck area. She has no other joint or bone pain. She sometimes has headache. She does not complain of dizziness. She has some numbness/tingling in her feet. She has significant anxiety, but she has been able to manage it adequately with lorazepam. Medications: Albuterol Sulfate 1 - 2 Puff(s) (of 108 (90 base) mcg/act) Aerosol Powder, Breath Activated Inhalation q 4 hours PRN, Benadryl Allergy 2 (25 mg) Tablet Oral b.i.d., Dexamethasone 5 Tablet (of 4 mg) Oral, Famotidine 1 (20 mg) Tablet Oral four times a day PRN, Ibuprofen 1 (200 mg) Capsule Oral t.i.d. PRN, LORazepam 0.5 - 1 Tablet (of 1 mg) Oral t.i.d. PRN, Methadone HCl 1 (40 mg) Tablet Soluble Oral daily, Mirtazapine 1 (30 mg) Tablet Oral daily, Omeprazole Magnesium 1 (20 mg) Tablet, enteric coated Oral daily, Prochlorperazine Maleate 1 Tablet (of 10 mg) Oral q 4 hours PRN, Senna S 1 (8.6-50 mg) Tablet Oral t.i.d., Symbicort 1 Puff(s) (of 160-4.5 mcg/act) Aerosol Inhalation b.i.d., Tagamet HB 1 Tablet (of 200 mg) Tablet Oral daily, Vitamin C 1 Capsule (of 500 mg) Oral daily Allergies: Azithromycin, Latex, Nalbuphine HCl, and Sulfa Antibiotics. Vital Signs: Performed on Jun 07, 2021 10:19 Height - 62.00 in Weight - 105.6 lbs (LOW) BSA - 1.46 sq.m BMI - 19.31 Temperature - 97.3 F (LOW) Pulse - 105 /min (HIGH) Respiration - 18 /min BP - 123/71 mm(hg) O2 Sat - 99 % Pain - 2 Fatigue - 0 Physical Examination: Constitutional - She appears chronically ill, Eyes - Sclerae nonicteric. Conjunctivae clear, ENMT - No lesions noted in the oral cavity, Hematologic/Lymphatic - No cervical, clavicular, or axillary adenopathy, Respiratory - Lungs sound clear with diminished air movement bilaterally, Cardiovascular - Heart rhythm is regular. There is no murmur, gallop, or rub noted, Abdomen - Soft. Liver and spleen are not enlarged. There is no abdominal mass or ascites noted and there is no inguinal adenopathy, Extremities - No edema, Neurologic - No focal neurologic deficits noted. Lab/Imaging: Test performed on Jun 07, 2021 09:25 Sodium 138 mmol/L Potassium 4.0 mmol/L Chloride 101 mmol/L CO2 26 mmol/L Anion Gap 15.0 BUN 23 mg/dL Creatinine 0.7 mg/dL Cr Clearance (Est) 64.8900 mL/min eGFR 86.2 mL/min Glucose 83 mg/dL Osmolality - Calculated 289 mOsm/kg Calcium 8.3 mg/dL Protein, Total 6.3 g/dL Albumin 3.9 g/dL Globulin 2.4 g/dL Bilirubin, Total 0.3 mg/dL ALT (SGPT) 10 U/L AST (SGOT) 11 U/L Alkaline Phosphatase 70 IU/L WBC 5.7 10 3/uL RBC 3.31 10 6/uL HGB 11.4 g/dL HCT 34.5 % MCV 104.2 fL MCH 34.4 pg MCHC 33.0 g/dL RDW 14.9 % Platelet Count 210 10 3/cmm MPV 8.8 fL Neutrophils 4.25 10 3/uL Lymphocytes 0.5 10 3/uL Monocytes 0.7 10 3/uL Eosinophils 0.2 10 3/uL Basophils 0.0 10 3/uL Neutrophil % 74.6 % Lymphocyte % 8.2 % Monocyte % 12.8 % Eosinophil % 2.8 % Basophils % 0.4 % NRBC % 0 % Problem List: 1. Squamous cell carcinoma involving the upper lobe of the right lung, by clinical evaluation stage IIIB (T4, N2, M0). She has associated right upper lobe atelectasis. 2. Iron deficiency anemia. 3. Chronic pain for which she is on methadone, administered through methadone clinic. 4. She has history of substance abuse and opiate addiction. 5. COPD. 6. GERD. 7. History of hepatitis C, untreated. 8. Anxiety and depression. She has associated panic attacks. Problems Addressed with this Encounter and Plan: 1. 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 She had associated right upper lobe atelectasis. She underwent bronchoscopy/EBUS on 02/03/2021, and she had biopsy-proven involvement in a subcarinal lymph node. There was a suspected satellite nodule in the right lower lobe by PET/CT. I reviewed the PET/CT images with Dr. Chaves, and it appeared that the primary tumor and satellite nodule could be encompassed within radiation field. As such, she was recommend undergo chemoradiation for primary treatment. She began radiation concurrently with carboplatin/paclitaxel chemotherapy on 03/15/2021. She completed radiation on 04/29/2021 to a total dose of 6000 cGy. She was not entirely compliant with the chemotherapy, and she ended up completing a total of 5 weekly infusions of carboplatin/paclitaxel. Overall, though, she tolerated the treatment well. Her restaging chest CT did show evidence of significant response to the chemoradiation. There was no evidence of disease progression. As such, she will proceed now to maintenance immunotherapy with durvalumab. It will be administered on and every 4-week dosing schedule. I reviewed anticipated side effects which may include enteritis/colitis, pancreatitis, endocrinopathies, skin eruption, and liver and/or renal dysfunction, among others. She will receive her first cycle of durvalumab today. She returns in 4 weeks. 2. She had evidence of iron deficiency anemia. She had tolerated oral iron poorly due to constipation. As such, she was given parenteral iron replacement with Injectafer. She tolerated it well. During follow-up she has remained slightly anemic. She will require ongoing monitoring of her blood counts and serum iron studies. 3. She has significant anxiety. She will continue lorazepam 1 mg up to 3 times daily as needed. Signed By: Sean Tadeo M.D. <<Signature on File>>
[2021-06-07 14:13] LABS: Thyroid Stimulating Hormone 3.56 uIU/mL (0.27-4.20)
== END 2021-06-28 23:59 | disposition home or self-care (01) ==
LOC: ONCMED 05:37
PROVIDERS: PCP Family Medicine; Visit Provider Internal Medicine Medical Oncology
DX: Z51.12 Encounter for antineoplastic immunotherapy (principal); C34.11 Malignant neoplasm of upper lobe, right bronchus or lung; J98.11 Atelectasis; D50.9 Iron deficiency anemia, unspecified; G89.4 Chronic pain syndrome; J44.9 Chronic obstructive pulmonary disease, unspecified; K21.9 Gastro-esophageal reflux disease without esophagitis; F41.9 Anxiety disorder, unspecified; F32.9 Major depressive disorder, single episode, unspecified; F41.0 Panic disorder [episodic paroxysmal anxiety]; F11.20 Opioid dependence, uncomplicated; Z86.19 Personal history of other infectious and parasitic diseases; Z79.899 Other long term (current) drug therapy
CPT/HCPCS: 80053; 84443; 85025; 96413; 99214; J7050; J9173

== ENCOUNTER 2021-07-06 06:03 | Outpatient (RCR) | payer MEDICARE, MEDICAID, SELFPAY ==
[2021-07-06 08:58] LABS: Basophils % 0.3 %; Eosinophils # 0.1 10^3/uL (0.0-0.8); Eosinophils % 1.7 %; Hematocrit 35.2 % (37.0-47.0); Hemoglobin 11.6 g/dL (11.5-15.3); Lymphocytes # 0.8 10^3/uL (0.8-4.8); Lymphocytes % 13.3 %; Mean Corpuscular Hemoglobin 34.4 pg (28.0-34.0); Mean Corpuscular Volume 104.5 fl (81-99); Mean Platelet Volume 8.9 fL (7.4-10.4); Monocytes # 0.7 10^3/uL (0.2-0.9); Monocytes % 12.2 %; Neutrophils # 4.13 10^3/uL (1.8-7.7); Neutrophils % 71.3 %; Nucleated Red Blood Cells % 0 %; Platelet Count 209 10^3/cmm (130-400); Red Blood Count 3.37 10^6/uL (4.1-5.3); Red Cell Distribution Width 12.3 % (12.1-15.1); White Blood Count 5.8 10^3/uL (4.0-10.0)
[2021-07-06 09:35] LABS: Alanine Aminotransferase 17 U/L (0-33); Albumin Level 3.7 g/dL (3.5-5.2); Alkaline Phosphatase 80 IU/L (35-105); Aspartate Amino Transferase 10 U/L (0-32); Blood Urea Nitrogen 13 mg/dL (6-20); Calcium 8.1 mg/dL (8.5-10.5); Carbon Dioxide 26 mmol/L (22-29); Chloride 100 mmol/L (98-107); Globulin 2.6 g/dL (1.3-4.6); Glucose 91 mg/dL (65-115); Osmolality Calculated 284 mOsm/kg (285-295); Sodium 137 mmol/L (136-145); Thyroid Stimulating Hormone 3.49 uIU/mL (0.27-4.20); Total Bilirubin 0.2 mg/dL (0.15-1.2); Total Protein 6.3 g/dL (6.6-8.7)
[2021-07-06] MEDS: ipratropium-albuterol 3 mL Neb INHALATION (10:40)
--- NOTE | 2021-07-06 18:04 | ONC FU_ITS ---
Dr. Tadeo Patient Follow-Up Note Patient: Caridad Thakkar Unit #: [id number]: 1965 Dicatated By: Sean Tadeo M.D.Date of Visit:Jul 06, 2021 Onc Med Follow-up/Prog Note Chief Complaint: Lung cancer. 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 She had presented initially to Dr. Pennington with complaints of swelling in her throat. Her chest x-ray showed elevated right hilum in association with a central opacity in the right upper lobe. The findings were suspicious for central malignancy involving the right hilum and adjacent mediastinum. Further evaluation with chest CT on 01/10/2021 showed a 2.0 x 4.0 right upper lobe mass with associated right upper lobe atelectasis. There was narrowing of the right upper lobe with left shift of the mediastinum from left to right. A subcarinal soft tissue density measuring 3.4 cm was felt to be consistent with enlarged lymph node. The upper abdominal structures appeared unremarkable. She had pulmonary consultation with Dr. Murillo on 01/24/2021. Staging PET/CT on 01/29/2021 showed FDG avid right upper lobe mass measuring 2.1 x 3.7 cm, SUV 16.9, consistent with primary malignancy. There was evidence of local metastatic disease in the subcarinal territory measuring 3.0 x 2.2 cm with SUV 14.9. A right paratracheal node measuring 1.9 cm also was consistent with metastatic disease. A right lower lung lesion adjacent to the pericardium measuring 1.7 cm was FDG avid with SUV 11.6 cm, consistent with a satellite nodule. On 02/03/2021 she underwent bronchoscopy with EBUS. There was noted to be visible mucosal irregularity starting very close to the indira with narrowing of the right mainstem bronchus. The appearance was consistent with malignancy. Endobronchial and transbronchial biopsies were obtained. EBUS showed evidence of mediastinal and hilar lymphadenopathy. FNA biopsy was obtained from a station 7 lymph node. Pathology on the station 7 lymph node biopsy were positive for squamous cell carcinoma. The PD-L1 expression to IHC 22C3 was < 1%. I had seen her initially on 02/09/2021. By clinical evaluation, her disease appeared to to be stage IIIB (T4, N2, M0), but after discussion with Dr. Chaves, it was determined that her lung disease could be encompassed within a single radiation field, she was recommended to undergo chemoradiation. She began radiation concurrently with carboplatin/paclitaxel chemotherapy on 03/15/2021. She completed radiation on 04/29/2021 to a total dose of 6000 cGy. She was able to tolerate the chemotherapy with acceptable toxicity, though she was not entirely compliant with the treatment, and she ended up completing a total of 5 weekly infusions of carboplatin/paclitaxel. Her restaging chest CT on 05/18/2021 showed a significant decrease in the medial right upper lobe paratracheal mass measuring 1.7 x 1.2 cm. There was persistent but slightly improved postobstructive atelectasis in the right upper lobe. A satellite nodule abutting the right pericardium was noted to have essentially resolved. There was no evidence of disease progression. With that finding, she was recommended to proceed with maintenance immunotherapy. At the time of her initial evaluation, she also was mildly anemic with transferrin saturation low at 7%, consistent with iron deficiency. As the anemia had not been correcting with oral iron supplementation, she was given parenteral iron replacement with Injectafer. Her medical history is otherwise significant for COPD and GERD. She has a history of untreated hepatitis C. She also has a history of chronic pain with associated substance abuse and opiate addiction, for which she is receiving treatment through a methadone clinic. She has a history of smoking for 40 years, previously up to 1-1/2 packs of cigarettes daily. She currently smokes 1/2 pack/day. INTERIM HISTORY: She began cycle 1 of maintenance immunotherapy with avelumab on 06/07/2021. It was administered at a fixed 4-week dosage of 1500 mg by IV infusion. She tolerated it without acute toxicity. She is seen for a follow-up visit. She complains that she has been feeling really tired and exhausted. She is still doing some housework. ECOG score is 1. She still has good appetite. She has not had fever. Recently she has been having episodes of sweating both during the daytime and at night. The last few nights she has been waking up drenched in sweat. She has had a little bit of sore throat. She has cough productive of thick sputum. She says it looks like skin tissue. She says her breathing is not good. She is not having chest pain. She had nausea this morning. She has ongoing problems with constipation. She has been having urinary frequency and urgency. She has some associated incontinence. She is also having pain in her low back, and she thinks she may have a bladder infection. She had headache this morning and she sometimes has dizziness. She has some numbness/tingling, but that is not as bad now. She says her stress is at the top of the chart. Medications: Albuterol Sulfate 1 - 2 Puff(s) (of 108 (90 base) mcg/act) Aerosol Powder, Breath Activated Inhalation q 4 hours PRN, Benadryl Allergy 2 (25 mg) Tablet Oral b.i.d., Dexamethasone 5 Tablet (of 4 mg) Oral, Famotidine 1 (20 mg) Tablet Oral four times a day PRN, Ibuprofen 1 (200 mg) Capsule Oral t.i.d. PRN, LORazepam 0.5 - 1 Tablet (of 1 mg) Oral t.i.d. PRN, Methadone HCl 1 (40 mg) Tablet Soluble Oral daily, Mirtazapine 1 (30 mg) Tablet Oral daily, Omeprazole Magnesium 1 (20 mg) Tablet, enteric coated Oral daily, Prochlorperazine Maleate 1 Tablet (of 10 mg) Oral q 4 hours PRN, Senna S 1 (8.6-50 mg) Tablet Oral t.i.d., Symbicort 1 Puff(s) (of 160-4.5 mcg/act) Aerosol Inhalation b.i.d., Tagamet HB 1 Tablet (of 200 mg) Tablet Oral daily, Vitamin C 1 Capsule (of 500 mg) Oral daily Allergies: Azithromycin, Latex, Nalbuphine HCl, and Sulfa Antibiotics. Vital Signs: Performed on Jul 06, 2021 10:27 Height - 62.00 in Weight - 111.2 lbs (HIGH) BSA - 1.49 sq.m BMI - 20.34 Temperature - 97.7 F (LOW) Pulse - 108 /min (HIGH) Respiration - 18 /min BP - 134/78 mm(hg) O2 Sat - 94 % (LOW) Pain - 10 Fatigue - 10 Physical Examination: Constitutional - She appears chronically ill, Eyes - Sclerae nonicteric. Conjunctivae clear, ENMT - No lesions noted in the oral cavity, Hematologic/Lymphatic - No cervical, clavicular, or axillary adenopathy, Respiratory - Lungs showdiminished air movement bilaterally. There are just a few scattered rales, Cardiovascular - Heart rhythm is regular. There is no murmur, gallop, or rub noted, Abdomen - Soft. Liver and spleen are not enlarged. There is no abdominal mass or ascites noted and there is no inguinal adenopathy, Extremities - No edema, Integumentary - Her skin looks dry, but mainly the wrists and hands. There is slight fissuring at the fingertips, Neurologic - No focal neurologic deficits noted. Lab/Imaging: Test performed on Jul 06, 2021 08:23 Sodium 137 mmol/L TSH 3.49 uIU/mL Potassium 4.0 mmol/L Chloride 100 mmol/L CO2 26 mmol/L Anion Gap 15.0 BUN 13 mg/dL Creatinine 0.6 mg/dL Cr Clearance (Est) 82.37 mL/min eGFR 103.0 mL/min Glucose 91 mg/dL Osmolality - Calculated 284 mOsm/kg Calcium 8.1 mg/dL Protein, Total 6.3 g/dL Albumin 3.7 g/dL Globulin 2.6 g/dL Bilirubin, Total 0.2 mg/dL ALT (SGPT) 17 U/L AST (SGOT) 10 U/L Alkaline Phosphatase 80 IU/L WBC 5.8 10 3/uL RBC 3.37 10 6/uL HGB 11.6 g/dL HCT 35.2 % MCV 104.5 fl MCH 34.4 pg MCHC 33.0 g/dL RDW 12.3 % Platelet Count 209 10 3/cmm MPV 8.9 fL Neutrophils 4.13 10 3/uL Lymphocytes 0.8 10 3/uL Monocytes 0.7 10 3/uL Eosinophils 0.1 10 3/uL Basophils 0.0 10 3/uL Neutrophil % 71.3 % Lymphocyte % 13.3 % Monocyte % 12.2 % Eosinophil % 1.7 % Basophils % 0.3 % NRBC % 0 % Problem List: 1. Squamous cell carcinoma involving the upper lobe of the right lung, by clinical evaluation stage IIIB (T4, N2, M0). She has associated right upper lobe atelectasis. 2. Iron deficiency anemia. 3. Chronic pain for which she is on methadone, administered through methadone clinic. 4. She has history of substance abuse and opiate addiction. 5. COPD. 6. GERD. 7. History of hepatitis C, untreated. 8. Anxiety and depression. She has associated panic attacks. Problems Addressed with this Encounter and Plan: 1. 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 She had associated right upper lobe atelectasis. She underwent bronchoscopy/EBUS on 02/03/2021, and she had biopsy-proven involvement in a subcarinal lymph node. There was a suspected satellite nodule in the right lower lobe by PET/CT. I reviewed the PET/CT images with Dr. Chaves, and it appeared that the primary tumor and satellite nodule could be encompassed within radiation field. As such, she was recommend undergo chemoradiation for primary treatment. She began radiation concurrently with carboplatin/paclitaxel chemotherapy on 03/15/2021. She completed radiation on 04/29/2021 to a total dose of 6000 cGy. She was not entirely compliant with the chemotherapy, and she ended up completing a total of 5 weekly infusions of carboplatin/paclitaxel. Overall, though, she tolerated the treatment well. Her restaging chest CT showed evidence of significant response to the chemoradiation and no evidence of disease progression. As such, she was recommended to proceed with maintenance immunotherapy. She began cycle 1 of maintenance immunotherapy with avelumab on 06/07/2021. It was administered at a fixed 4-week dosage of 1500 mg by IV infusion. She tolerated it without acute toxicity. She comes in now with multiple complaints including severe fatigue, productive cough, shortness of breath, and episodes of severe sweating. She also has back pain and urinary tract symptoms which are suspicious for urinary tract infection. It is unclear to what extent any of this may be treatment related. However, as a precaution, I am going to delay her further immunotherapy. She will have chest x-ray today and I also will check sputum and urine cultures. She will have further evaluation and/or antibiotic therapy as indicated. 2. She had evidence of iron deficiency anemia. She had tolerated oral iron poorly due to constipation. As such, she was given parenteral iron replacement with Injectafer. She tolerated it well. During follow-up she has remained slightly anemic. She will require ongoing monitoring of her blood counts and serum iron studies. 3. She has significant anxiety. She will continue lorazepam 1 mg up to 3 times daily as needed. Signed By: Sean Tadeo M.D. <<Signature on File>>
== END 2021-07-07 10:00 | disposition home or self-care (01) ==
LOC: ONCMED 06:03
PROVIDERS: PCP Family Medicine; Visit Provider Internal Medicine Medical Oncology
DX: C34.11 Malignant neoplasm of upper lobe, right bronchus or lung (principal); J98.11 Atelectasis; D50.9 Iron deficiency anemia, unspecified; G89.4 Chronic pain syndrome; F11.10 Opioid abuse, uncomplicated; J44.9 Chronic obstructive pulmonary disease, unspecified; K21.9 Gastro-esophageal reflux disease without esophagitis; F41.9 Anxiety disorder, unspecified; F32.9 Major depressive disorder, single episode, unspecified; F41.0 Panic disorder [episodic paroxysmal anxiety]; Z86.19 Personal history of other infectious and parasitic diseases; Z79.899 Other long term (current) drug therapy
CPT/HCPCS: 36591; 80053; 84443; 85025; 87086; 99214

== ENCOUNTER 2021-07-07 09:31 | Outpatient (CLI) | payer MEDICARE, MEDICAID, SELFPAY ==
--- NOTE | 2021-07-07 09:42 | XR_ITS ---
WS: [id number] Chest 2 views, 07/07/2021 Clinical Data: SHORTNESS OF BREATH/PRODUCTIVE COUGH Comparison: Portable chest, 03/08/2021. Findings: The volume loss in the right upper lobe from a right hilar mass and postobstructive atelect asis has improved slightly. The right internal jugular venous catheter remains in the same position. The left lung is clear. There is a shift of the heart and mediastinum from left to right unchanged. N o nodules or effusions are seen. There are no new lung masses. The heart is normal. The pulmonary vas cularity is not increased. No pneumonia or pneumothorax is seen. XR/XR chest 2V* [id number] Impression: 1. Volume loss and postobstructive atelectasis from right hilar mass has improv ed slightly. 2. Remainder of the heart and lungs show no changes from before.
== END 2021-07-07 09:32 | disposition home or self-care (01) ==
LOC: RAD 09:40
PROVIDERS: PCP Family Medicine; Visit Provider Internal Medicine Medical Oncology
DX: R06.02 Shortness of breath (principal); R05 Cough; J98.11 Atelectasis
CPT/HCPCS: 71046; 87070; 87205

== ENCOUNTER 2021-07-21 06:49 | Outpatient (RCR) | payer MEDICARE, MEDICAID, SELFPAY ==
[2021-07-21 10:37] LABS: Basophils # 0.1 10^3/uL (0.0-0.1); Basophils % 0.6 %; Eosinophils # 0.2 10^3/uL (0.0-0.8); Eosinophils % 2.4 %; Hemoglobin 12.1 g/dL (11.5-15.3); Lymphocytes # 0.8 10^3/uL (0.8-4.8); Lymphocytes % 9.8 %; Mean Corpuscular HGB Conc 33.6 g/dL (30.0-36.0); Mean Corpuscular Hemoglobin 33.7 pg (28.0-34.0); Mean Corpuscular Volume 100.3 fl (81-99); Mean Platelet Volume 8.7 fL (7.4-10.4); Monocytes % 11.4 %; Neutrophils # 6.22 10^3/uL (1.8-7.7); Neutrophils % 74.5 %; Nucleated Red Blood Cells % 0 %; Platelet Count 200 10^3/cmm (130-400); Red Blood Count 3.59 10^6/uL (4.1-5.3); Red Cell Distribution Width 12.2 % (12.1-15.1); White Blood Count 8.4 10^3/uL (4.0-10.0)
[2021-07-21 11:04] LABS: Alanine Aminotransferase 12 U/L (0-33); Albumin Level 3.8 g/dL (3.5-5.2); Alkaline Phosphatase 79 IU/L (35-105); Anion Gap 13.9 (5-19); Aspartate Amino Transferase 11 U/L (0-32); Blood Urea Nitrogen 17 mg/dL (6-20); Calcium 8.5 mg/dL (8.5-10.5); Carbon Dioxide 28 mmol/L (22-29); Chloride 98 mmol/L (98-107); Globulin 2.8 g/dL (1.3-4.6); Glomerular Filtration Rate 86.2 mL/min (90-130); Glucose 82 mg/dL (65-115); Osmolality Calculated 283 mOsm/kg (285-295); Potassium 3.9 mmol/L (3.5-5.1); Sodium 136 mmol/L (136-145); Total Bilirubin 0.2 mg/dL (0.15-1.2); Total Protein 6.6 g/dL (6.6-8.7)
--- NOTE | 2021-07-24 13:13 | ONC FU_ITS ---
Dr. Tadeo Patient Follow-Up Note Patient: Caridad Thakkar Unit #: [id number]: [id number] Dicatated By: Sean Tadeo M.D.Date of Visit:Jul 21, 2021 Onc Med Follow-up/Prog Note Chief Complaint: Lung cancer. 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 She had presented initially to Dr. Pennington with complaints of swelling in her throat. Her chest x-ray showed elevated right hilum in association with a central opacity in the right upper lobe. The findings were suspicious for central malignancy involving the right hilum and adjacent mediastinum. Further evaluation with chest CT on 01/10/2021 showed a 2.0 x 4.0 right upper lobe mass with associated right upper lobe atelectasis. There was narrowing of the right upper lobe with left shift of the mediastinum from left to right. A subcarinal soft tissue density measuring 3.4 cm was felt to be consistent with enlarged lymph node. The upper abdominal structures appeared unremarkable. She had pulmonary consultation with Dr. Murillo on 01/24/2021. Staging PET/CT on 01/29/2021 showed FDG avid right upper lobe mass measuring 2.1 x 3.7 cm, SUV 16.9, consistent with primary malignancy. There was evidence of local metastatic disease in the subcarinal territory measuring 3.0 x 2.2 cm with SUV 14.9. A right paratracheal node measuring 1.9 cm also was consistent with metastatic disease. A right lower lung lesion adjacent to the pericardium measuring 1.7 cm was FDG avid with SUV 11.6 cm, consistent with a satellite nodule. On 02/03/2021 she underwent bronchoscopy with EBUS. There was noted to be visible mucosal irregularity starting very close to the indira with narrowing of the right mainstem bronchus. The appearance was consistent with malignancy. Endobronchial and transbronchial biopsies were obtained. EBUS showed evidence of mediastinal and hilar lymphadenopathy. FNA biopsy was obtained from a station 7 lymph node. Pathology on the station 7 lymph node biopsy were positive for squamous cell carcinoma. The PD-L1 expression to IHC 22C3 was < 1%. I had seen her initially on 02/09/2021. By clinical evaluation, her disease appeared to to be stage IIIB (T4, N2, M0), but after discussion with Dr. Chaves, it was determined that her lung disease could be encompassed within a single radiation field, she was recommended to undergo chemoradiation. She began radiation concurrently with carboplatin/paclitaxel chemotherapy on 03/15/2021. She completed radiation on 04/29/2021 to a total dose of 6000 cGy. She was able to tolerate the chemotherapy with acceptable toxicity, though she was not entirely compliant with the treatment, and she ended up completing a total of 5 weekly infusions of carboplatin/paclitaxel. Her restaging chest CT on 05/18/2021 showed a significant decrease in the medial right upper lobe paratracheal mass measuring 1.7 x 1.2 cm. There was persistent but slightly improved postobstructive atelectasis in the right upper lobe. A satellite nodule abutting the right pericardium was noted to have essentially resolved. There was no evidence of disease progression. With that finding, she was recommended to proceed with maintenance immunotherapy. At the time of her initial evaluation, she also was mildly anemic with transferrin saturation low at 7%, consistent with iron deficiency. As the anemia had not been correcting with oral iron supplementation, she was given parenteral iron replacement with Injectafer. Her medical history is otherwise significant for COPD and GERD. She has a history of untreated hepatitis C. She also has a history of chronic pain with associated substance abuse and opiate addiction, for which she is receiving treatment through a methadone clinic. She has a history of smoking for 40 years, previously up to 1-1/2 packs of cigarettes daily. She currently smokes 1/2 pack/day. INTERIM HISTORY: She began cycle 1 of maintenance immunotherapy with avelumab on 06/07/2021. It was administered at a fixed 4-week dosage of 1500 mg by IV infusion. She tolerated it without acute toxicity. She is seen for a follow-up visit. At her follow-up visit on 07/06/2021 she had multiple complaints, most significantly shortness of breath and productive cough. I did opt to put her treatment on hold, though chest x-ray showed slight improvement in the volume loss and postobstructive atelectasis from the right hilar mass and no other acute findings. She is seen for a follow-up visit. Her main complaint today is that she is having severe back pain. She also reports that her legs feel weak. She reports having real bad itching. She has limited activity, but she is doing some housework. ECOG score is 1. She has not had fever, but she has had chills and sweating. She has sinus drainage and sore throat. She does not complain of cough, but she is short of breath. She has not been having chest pain. She has nausea and she also has constipation. Bladder function improved somewhat on antibiotic, but she says her urination has become very frequent again. She also has pain in her neck and generalized joint pain. She has been having some headaches and she also complains of dizziness. She says her left side is numb, and she says she has been shaking real bad. Medications: Albuterol Sulfate 1 - 2 Puff(s) (of 108 (90 base) mcg/act) Aerosol Powder, Breath Activated Inhalation q 4 hours PRN, Benadryl Allergy 2 (25 mg) Tablet Oral b.i.d., Dexamethasone 5 Tablet (of 4 mg) Oral, Famotidine 1 (20 mg) Tablet Oral four times a day PRN, Ibuprofen 1 (200 mg) Capsule Oral t.i.d. PRN, LORazepam 0.5 - 1 Tablet (of 1 mg) Oral t.i.d. PRN, Methadone HCl 1 (40 mg) Tablet Soluble Oral daily, Mirtazapine 1 (30 mg) Tablet Oral daily, Omeprazole Magnesium 1 (20 mg) Tablet, enteric coated Oral daily, Prochlorperazine Maleate 1 Tablet (of 10 mg) Oral q 4 hours PRN, Senna S 1 (8.6-50 mg) Tablet Oral t.i.d., Symbicort 1 Puff(s) (of 160-4.5 mcg/act) Aerosol Inhalation b.i.d., Tagamet HB 1 Tablet (of 200 mg) Tablet Oral daily, Vitamin C 1 Capsule (of 500 mg) Oral daily Allergies: Azithromycin, Latex, Nalbuphine HCl, and Sulfa Antibiotics. Vital Signs: Performed on Jul 21, 2021 10:25 Height - 62.00 in Weight - 117.4 lbs (HIGH) BSA - 1.52 sq.m BMI - 21.47 Temperature - 98.4 F Pulse - 112 /min (HIGH) Respiration - 20 /min BP - 96/80 mm(hg) O2 Sat - 94 % (LOW) Pain - 4 Fatigue - 4 Physical Examination: Constitutional - She appears chronically ill, Eyes - Sclerae nonicteric. Conjunctivae clear, ENMT - No lesions noted in the oral cavity, Hematologic/Lymphatic - No cervical, clavicular, or axillary adenopathy, Respiratory - Lungs show slightly coarse breath sounds and diminished air movement bilaterally, Cardiovascular - Heart rhythm is regular. There is no murmur, gallop, or rub noted, Abdomen - Soft. Liver and spleen are not enlarged. There is no abdominal mass or ascites noted and there is no inguinal adenopathy, Extremities - No edema, Neurologic - No focal neurologic deficits noted. Lab/Imaging: Test performed on Jul 21, 2021 10:20 Sodium 136 mmol/L Potassium 3.9 mmol/L Chloride 98 mmol/L CO2 28 mmol/L Anion Gap 13.9 BUN 17 mg/dL Creatinine 0.7 mg/dL Cr Clearance (Est) 74.5400 mL/min eGFR 86.2 mL/min Glucose 82 mg/dL Osmolality - Calculated 283 mOsm/kg Calcium 8.5 mg/dL Protein, Total 6.6 g/dL Albumin 3.8 g/dL Globulin 2.8 g/dL Bilirubin, Total 0.2 mg/dL ALT (SGPT) 12 U/L AST (SGOT) 11 U/L Alkaline Phosphatase 79 IU/L WBC 8.4 10 3/uL RBC 3.59 10 6/uL HGB 12.1 g/dL HCT 36.0 % MCV 100.3 fl MCH 33.7 pg MCHC 33.6 g/dL RDW 12.2 % Platelet Count 200 10 3/cmm MPV 8.7 fL Neutrophils 6.22 10 3/uL Lymphocytes 0.8 10 3/uL Monocytes 1.0 10 3/uL Eosinophils 0.2 10 3/uL Basophils 0.1 10 3/uL Neutrophil % 74.5 % Lymphocyte % 9.8 % Monocyte % 11.4 % Eosinophil % 2.4 % Basophils % 0.6 % NRBC % 0 % Problem List: 1. Squamous cell carcinoma involving the upper lobe of the right lung, by clinical evaluation stage IIIB (T4, N2, M0). She has associated right upper lobe atelectasis. 2. Iron deficiency anemia. 3. Chronic pain for which she is on methadone, administered through methadone clinic. 4. She has history of substance abuse and opiate addiction. 5. COPD. 6. GERD. 7. History of hepatitis C, untreated. 8. Anxiety and depression. She has associated panic attacks. 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 She had associated right upper lobe atelectasis. She underwent bronchoscopy/EBUS on 02/03/2021, and she had biopsy-proven involvement in a subcarinal lymph node. There was a suspected satellite nodule in the right lower lobe by PET/CT. I reviewed the PET/CT images with Dr. Chaves, and it appeared that the primary tumor and satellite nodule could be encompassed within radiation field. As such, she was recommend undergo chemoradiation for primary treatment. She began radiation concurrently with carboplatin/paclitaxel chemotherapy on 03/15/2021. She completed radiation on 04/29/2021 to a total dose of 6000 cGy. She was not entirely compliant with the chemotherapy, and she ended up completing a total of 5 weekly infusions of carboplatin/paclitaxel. Overall, though, she tolerated the treatment well. Her restaging chest CT showed evidence of significant response to the chemoradiation and no evidence of disease progression. As such, she was recommended to proceed with maintenance immunotherapy. She began cycle 1 of maintenance immunotherapy with avelumab on 06/07/2021. It was administered at a fixed 4-week dosage of 1500 mg by IV infusion. She tolerated it without acute toxicity. At her follow-up visit on 07/06/2021 she had multiple complaints, significantly shortness of breath and productive cough. I did opt to put her treatment on hold. She was given empiric antibiotic therapy. She has since then had some improvement in the cough and shortness of breath, but she continues to have multiple other complaints and she has fairly marginal performance status. As such, her treatment will remain on hold. She will be scheduled for restaging PET/CT. In the meantime, I will put her back on a low-dose of prednisone. Signed By: Sean Tadeo M.D. <<Signature on File>>
== END 2021-07-28 23:59 | disposition home or self-care (01) ==
LOC: ONCMED 06:49
PROVIDERS: PCP Family Medicine; Visit Provider Internal Medicine Medical Oncology
DX: C34.11 Malignant neoplasm of upper lobe, right bronchus or lung (principal); J98.11 Atelectasis; D50.9 Iron deficiency anemia, unspecified; G89.4 Chronic pain syndrome; F11.21 Opioid dependence, in remission; J44.9 Chronic obstructive pulmonary disease, unspecified; K21.9 Gastro-esophageal reflux disease without esophagitis; F41.9 Anxiety disorder, unspecified; F32.9 Major depressive disorder, single episode, unspecified; F41.0 Panic disorder [episodic paroxysmal anxiety]; Z86.19 Personal history of other infectious and parasitic diseases; Z79.2 Long term (current) use of antibiotics; Z79.52 Long term (current) use of systemic steroids; Z79.899 Other long term (current) drug therapy; Z92.21 Personal history of antineoplastic chemotherapy
CPT/HCPCS: 36591; 80053; 85025; 99214

== ENCOUNTER 2021-08-22 06:49 | Outpatient (RCR) | payer MEDICARE, MEDICAID, SELFPAY ==
[2021-08-22 08:59] LABS: Basophils % 0.1 %; Eosinophils % 0.1 %; Hematocrit 40.6 % (37.0-47.0); Hemoglobin 13.3 g/dL (11.5-15.3); Lymphocytes # 0.3 10^3/uL (0.8-4.8); Lymphocytes % 3.1 %; Mean Corpuscular HGB Conc 32.8 g/dL (30.0-36.0); Mean Corpuscular Hemoglobin 32.5 pg (28.0-34.0); Mean Corpuscular Volume 99.3 fl (81-99); Mean Platelet Volume 8.9 fL (7.4-10.4); Monocytes # 0.3 10^3/uL (0.2-0.9); Monocytes % 2.8 %; Neutrophils # 9.58 10^3/uL (1.8-7.7); Neutrophils % 92.6 %; Nucleated Red Blood Cells % 0 %; Platelet Count 197 10^3/cmm (130-400); Red Blood Count 4.09 10^6/uL (4.1-5.3); Red Cell Distribution Width 12.1 % (12.1-15.1); White Blood Count 10.3 10^3/uL (4.0-10.0)
[2021-08-22 09:39] LABS: Alanine Aminotransferase 15 U/L (0-33); Albumin Level 3.9 g/dL (3.5-5.2); Alkaline Phosphatase 72 IU/L (35-105); Anion Gap 16.2 (5-19); Aspartate Amino Transferase 12 U/L (0-32); Blood Urea Nitrogen 23 mg/dL (6-20); Calcium 8.7 mg/dL (8.5-10.5); Carbon Dioxide 28 mmol/L (22-29); Chloride 98 mmol/L (98-107); Globulin 2.3 g/dL (1.3-4.6); Glomerular Filtration Rate 102.7 mL/min (90-130); Glucose 139 mg/dL (65-115); Osmolality Calculated 292 mOsm/kg (285-295); Potassium 4.2 mmol/L (3.5-5.1); Sodium 138 mmol/L (136-145); Thyroid Stimulating Hormone 0.84 uIU/mL (0.27-4.20); Total Bilirubin 0.2 mg/dL (0.15-1.2); Total Protein 6.2 g/dL (6.6-8.7)
--- NOTE | 2021-08-23 07:38 | ONC FU_ITS ---
Dr. Tadeo Patient Follow-Up Note Patient: Caridad Thakkar Unit #: [id number]: [id number] Dicatated By: Sean Tadeo M.D.Date of Visit:Aug 22, 2021 Onc Med Follow-up/Prog Note Chief Complaint: Lung cancer. 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 She had presented initially to Dr. Pennington with complaints of swelling in her throat. Her chest x-ray showed elevated right hilum in association with a central opacity in the right upper lobe. The findings were suspicious for central malignancy involving the right hilum and adjacent mediastinum. Further evaluation with chest CT on 01/10/2021 showed a 2.0 x 4.0 right upper lobe mass with associated right upper lobe atelectasis. There was narrowing of the right upper lobe with left shift of the mediastinum from left to right. A subcarinal soft tissue density measuring 3.4 cm was felt to be consistent with enlarged lymph node. The upper abdominal structures appeared unremarkable. She had pulmonary consultation with Dr. Murillo on 01/24/2021. Staging PET/CT on 01/29/2021 showed FDG avid right upper lobe mass measuring 2.1 x 3.7 cm, SUV 16.9, consistent with primary malignancy. There was evidence of local metastatic disease in the subcarinal territory measuring 3.0 x 2.2 cm with SUV 14.9. A right paratracheal node measuring 1.9 cm also was consistent with metastatic disease. A right lower lung lesion adjacent to the pericardium measuring 1.7 cm was FDG avid with SUV 11.6 cm, consistent with a satellite nodule. On 02/03/2021 she underwent bronchoscopy with EBUS. There was noted to be visible mucosal irregularity starting very close to the indira with narrowing of the right mainstem bronchus. The appearance was consistent with malignancy. Endobronchial and transbronchial biopsies were obtained. EBUS showed evidence of mediastinal and hilar lymphadenopathy. FNA biopsy was obtained from a station 7 lymph node. Pathology on the station 7 lymph node biopsy were positive for squamous cell carcinoma. The PD-L1 expression to IHC 22C3 was < 1%. I had seen her initially on 02/09/2021. By clinical evaluation, her disease appeared to to be stage IIIB (T4, N2, M0), but after discussion with Dr. Chaves, it was determined that her lung disease could be encompassed within a single radiation field, she was recommended to undergo chemoradiation. She began radiation concurrently with carboplatin/paclitaxel chemotherapy on 03/15/2021. She completed radiation on 04/29/2021 to a total dose of 6000 cGy. She was able to tolerate the chemotherapy with acceptable toxicity, though she was not entirely compliant with the treatment, and she ended up completing a total of 5 weekly infusions of carboplatin/paclitaxel. Her restaging chest CT on 05/18/2021 showed a significant decrease in the medial right upper lobe paratracheal mass measuring 1.7 x 1.2 cm. There was persistent but slightly improved postobstructive atelectasis in the right upper lobe. A satellite nodule abutting the right pericardium was noted to have essentially resolved. There was no evidence of disease progression. With that finding, she was recommended to proceed with maintenance immunotherapy. At the time of her initial evaluation, she also was mildly anemic with transferrin saturation low at 7%, consistent with iron deficiency. As the anemia had not been correcting with oral iron supplementation, she was given parenteral iron replacement with Injectafer. Her medical history is otherwise significant for COPD and GERD. She has a history of untreated hepatitis C. She also has a history of chronic pain with associated substance abuse and opiate addiction, for which she is receiving treatment through a methadone clinic. She has a history of smoking for 40 years, previously up to 1-1/2 packs of cigarettes daily. She currently smokes 1/2 pack/day. INTERIM HISTORY: She began cycle 1 of maintenance immunotherapy with avelumab on 06/07/2021. It was administered at a fixed 4-week dosage of 1500 mg by IV infusion. She tolerated it without acute toxicity. At her follow-up visit on 07/06/2021 she had multiple complaints, most significantly shortness of breath and productive cough. I opted to put her treatment on hold, though chest x-ray showed slight improvement in the volume loss and postobstructive atelectasis from the right hilar mass and no other acute findings. As of her follow-up visit on 07/21/2021 she continued to have multiple complaints and poor performance status, I opted to keep her treatment on hold. Her restaging PET/CT on 08/13/2021 showed marked improvement in the right upper lobe neoplasm with residual mass measuring 2.0 cm in diameter, SUV 4.0. Malignant mediastinal adenopathy in the right paratracheal and subcarinal regions was noted to be subcentimeter in size and FDG negative in the right pericardial satellite lesion was noted to have resolved. Overall, there was evidence of significant treatment response and there were no findings to indicate osseous or other metastatic disease. She is seen for a follow-up visit. She continues to have multiple complaints, the most significant is that she is having severe back pain. She says the methadone is no longer helping at all. She took her last dose of methadone yesterday, and she is not planning to take any more of it. She has been on it for 3 years. She is generally weak and she has very limited activity. Her ECOG score is 3. Her appetite has been okay. She has not had fever. She says she has been sweating a lot. She has sinus drainage she says that fluid runs out of her nose when she bends over. She also reports having sore mouth and throat. She has shortness of breath and cough and recently she has been having chest pain. She has ongoing complaints of nausea and she also reports having acid reflux. She has chronic constipation. She reports having urinary frequency with some urgency and incontinence. She has generalized musculoskeletal pain, but the most severe is in her back. She has headache and dizziness and she reports having numbness/tingling in her feet. She has having significant anxiety and depression, which is significantly worsened by the fact that her significant other is currently receiving terminal care for lung cancer on hospice. Medications: Albuterol Sulfate 1 - 2 Puff(s) (of 108 (90 base) mcg/act) Aerosol Powder, Breath Activated Inhalation q 4 hours PRN, Benadryl Allergy 2 (25 mg) Tablet Oral b.i.d., Dexamethasone 5 Tablet (of 4 mg) Oral, Famotidine 1 (20 mg) Tablet Oral four times a day PRN, Ibuprofen 1 (200 mg) Capsule Oral t.i.d. PRN, LORazepam 0.5 - 1 Tablet (of 1 mg) Oral t.i.d. PRN, Methadone HCl 1 (40 mg) Tablet Soluble Oral daily, Mirtazapine 1 (30 mg) Tablet Oral daily, Omeprazole Magnesium 1 (20 mg) Tablet, enteric coated Oral daily, Prochlorperazine Maleate 1 Tablet (of 10 mg) Oral q 4 hours PRN, Senna S 1 (8.6-50 mg) Tablet Oral t.i.d., Symbicort 1 Puff(s) (of 160-4.5 mcg/act) Aerosol Inhalation b.i.d., Tagamet HB 1 Tablet (of 200 mg) Tablet Oral daily, Vitamin C 1 Capsule (of 500 mg) Oral daily Allergies: Azithromycin, Latex, Nalbuphine HCl, and Sulfa Antibiotics. Vital Signs: Performed on Aug 22, 2021 09:35 Height - 62.00 in Weight - 108.2 lbs (LOW) BSA - 1.47 sq.m BMI - 19.79 Temperature - 97.7 F (LOW) Pulse - 120 /min (HIGH) Respiration - 20 /min BP - 123/84 mm(hg) O2 Sat - 91 % (LOW) Pain - 10 Fatigue - 10 Physical Examination: Constitutional - She appears generally weak and chronically ill. Today she is also very anxious and emotionally distraught, Eyes - Sclerae nonicteric. Conjunctivae clear, ENMT - No lesions noted in the oral cavity, Hematologic/Lymphatic - No cervical, clavicular, or axillary adenopathy, Respiratory - Lungs sound clear with diminished air movement bilaterally, Cardiovascular - Heart rhythm is regular with a mild tachycardia. There is no murmur, gallop, or rub noted, Abdomen - Soft. Liver and spleen are not enlarged. There is no abdominal mass or ascites noted and there is no inguinal adenopathy, Extremities - No edema, Neurologic - No focal neurologic deficits noted. Lab/Imaging: Test performed on Aug 22, 2021 08:23 Sodium 138 mmol/L TSH 0.84 uIU/mL Potassium 4.2 mmol/L Chloride 98 mmol/L CO2 28 mmol/L Anion Gap 16.2 BUN 23 mg/dL Creatinine 0.6 mg/dL Cr Clearance (Est) 79.1900 mL/min eGFR 102.7 mL/min Glucose 139 mg/dL Osmolality - Calculated 292 mOsm/kg Calcium 8.7 mg/dL Protein, Total 6.2 g/dL Albumin 3.9 g/dL Globulin 2.3 g/dL Bilirubin, Total 0.2 mg/dL ALT (SGPT) 15 U/L AST (SGOT) 12 U/L Alkaline Phosphatase 72 IU/L WBC 10.3 10 3/uL RBC 4.09 10 6/uL HGB 13.3 g/dL HCT 40.6 % MCV 99.3 fl MCH 32.5 pg MCHC 32.8 g/dL RDW 12.1 % Platelet Count 197 10 3/cmm MPV 8.9 fL Neutrophils 9.58 10 3/uL Lymphocytes 0.3 10 3/uL Monocytes 0.3 10 3/uL Eosinophils 0.0 10 3/uL Basophils 0.0 10 3/uL Neutrophil % 92.6 % Lymphocyte % 3.1 % Monocyte % 2.8 % Eosinophil % 0.1 % Basophils % 0.1 % NRBC % 0 % Problem List: 1. Squamous cell carcinoma involving the upper lobe of the right lung, by clinical evaluation stage IIIB (T4, N2, M0). She has associated right upper lobe atelectasis. 2. Iron deficiency anemia. 3. Chronic pain for which she is on methadone, administered through methadone clinic. 4. She has history of substance abuse and opiate addiction. 5. COPD. 6. GERD. 7. History of hepatitis C, untreated. 8. Anxiety and depression. She has associated panic attacks. Problems Addressed with this Encounter and Plan: 1. 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 She had associated right upper lobe atelectasis. She underwent bronchoscopy/EBUS on 02/03/2021, and she had biopsy-proven involvement in a subcarinal lymph node. There was a suspected satellite nodule in the right lower lobe by PET/CT. I reviewed the PET/CT images with Dr. Chaves, and it appeared that the primary tumor and satellite nodule could be encompassed within radiation field. As such, she was recommend undergo chemoradiation for primary treatment. She began radiation concurrently with carboplatin/paclitaxel chemotherapy on 03/15/2021. She completed radiation on 04/29/2021 to a total dose of 6000 cGy. She was not entirely compliant with the chemotherapy, and she ended up completing a total of 5 weekly infusions of carboplatin/paclitaxel. Overall, though, she tolerated the treatment well. Her restaging chest CT showed evidence of significant response to the chemoradiation and no evidence of disease progression. As such, she was recommended to proceed with maintenance immunotherapy. She began cycle 1 of maintenance immunotherapy with avelumab on 06/07/2021. It was administered at a fixed 4-week dosage of 1500 mg by IV infusion. She tolerated it without acute toxicity. At her follow-up visit on 07/06/2021 she had multiple complaints, significantly shortness of breath and productive cough, and I opted to put her treatment on hold. She has since then continued to have multiple complaints and poor performance status, though restaging PET/CT on 08/13/2021 continued to show evidence of significant treatment response with no evidence of disease progression. At least for now her treatment will have to remain on hold. She will be scheduled for a follow-up visit in 2 weeks. 2. 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 She has now stopped her methadone and she is on the verge of going into opiate withdrawal. I have discussed this with Dr. Gutiérrez, and at this point she will be given further pain medication with extended release morphine, but at a relatively low dosage, initially 30 mg every 12 hours. Signed By: Sean Tadeo M.D. <<Signature on File>>
== END 2021-08-28 23:59 | disposition home or self-care (01) ==
LOC: ONCMED 06:49
PROVIDERS: PCP Family Medicine; Visit Provider Internal Medicine Medical Oncology
DX: C34.11 Malignant neoplasm of upper lobe, right bronchus or lung (principal); J98.11 Atelectasis; D50.9 Iron deficiency anemia, unspecified; G89.4 Chronic pain syndrome; Z79.891 Long term (current) use of opiate analgesic; J44.9 Chronic obstructive pulmonary disease, unspecified; K21.9 Gastro-esophageal reflux disease without esophagitis; F41.9 Anxiety disorder, unspecified; F32.9 Major depressive disorder, single episode, unspecified; F41.0 Panic disorder [episodic paroxysmal anxiety]; Z86.19 Personal history of other infectious and parasitic diseases; Z79.899 Other long term (current) drug therapy
CPT/HCPCS: 36591; 80053; 84443; 85025; 99215

== ENCOUNTER 2021-09-27 14:50 | Outpatient (RCR) | payer MEDICARE, MEDICAID, SELFPAY ==
[2021-09-06 08:47] LABS: Basophils % 0.2 %; Eosinophils % 0.2 %; Hematocrit 36.3 % (37.0-47.0); Hemoglobin 11.8 g/dL (11.5-15.3); Lymphocytes # 0.3 10^3/uL (0.8-4.8); Lymphocytes % 2.6 %; Mean Corpuscular HGB Conc 32.5 g/dL (30.0-36.0); Mean Corpuscular Hemoglobin 32.6 pg (28.0-34.0); Mean Corpuscular Volume 100.3 fl (81-99); Mean Platelet Volume 8.6 fL (7.4-10.4); Monocytes # 0.4 10^3/uL (0.2-0.9); Monocytes % 3.5 %; Neutrophils # 9.89 10^3/uL (1.8-7.7); Neutrophils % 92.3 %; Nucleated Red Blood Cells % 0 %; Platelet Count 194 10^3/cmm (130-400); Red Blood Count 3.62 10^6/uL (4.1-5.3); Red Cell Distribution Width 12.9 % (12.1-15.1); White Blood Count 10.7 10^3/uL (4.0-10.0)
[2021-09-06 09:17] LABS: Alanine Aminotransferase 11 U/L (0-33); Albumin Level 3.8 g/dL (3.5-5.2); Alkaline Phosphatase 84 IU/L (35-105); Anion Gap 14.8 (5-19); Aspartate Amino Transferase 10 U/L (0-32); Blood Urea Nitrogen 20 mg/dL (6-20); Calcium 8.6 mg/dL (8.5-10.5); Carbon Dioxide 28 mmol/L (22-29); Chloride 98 mmol/L (98-107); Globulin 2.5 g/dL (1.3-4.6); Glomerular Filtration Rate 85.9 mL/min (90-130); Glucose 117 mg/dL (65-115); Osmolality Calculated 286 mOsm/kg (285-295); Potassium 4.8 mmol/L (3.5-5.1); Sodium 136 mmol/L (136-145); Thyroid Stimulating Hormone 1.24 uIU/mL (0.27-4.20); Total Bilirubin 0.2 mg/dL (0.15-1.2); Total Protein 6.3 g/dL (6.6-8.7)
[2021-09-06] MEDS: sodium chloride 0.9% 250 ML 999 ML IV (10:45)
--- NOTE | 2021-09-06 16:52 | ONC FU_ITS ---
Dr. Tadeo Patient Follow-Up Note Patient: Caridad Thakkar Unit #: [id number]: [id number] Dicatated By: Sean Tadeo M.D.Date of Visit:Sep 06, 2021 Onc Med Follow-up/Prog Note Chief Complaint: Lung cancer. 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 She had presented initially to Dr. Pennington with complaints of swelling in her throat. Her chest x-ray showed elevated right hilum in association with a central opacity in the right upper lobe. The findings were suspicious for central malignancy involving the right hilum and adjacent mediastinum. Further evaluation with chest CT on 01/10/2021 showed a 2.0 x 4.0 right upper lobe mass with associated right upper lobe atelectasis. There was narrowing of the right upper lobe with left shift of the mediastinum from left to right. A subcarinal soft tissue density measuring 3.4 cm was felt to be consistent with enlarged lymph node. The upper abdominal structures appeared unremarkable. She had pulmonary consultation with Dr. Murillo on 01/24/2021. Staging PET/CT on 01/29/2021 showed FDG avid right upper lobe mass measuring 2.1 x 3.7 cm, SUV 16.9, consistent with primary malignancy. There was evidence of local metastatic disease in the subcarinal territory measuring 3.0 x 2.2 cm with SUV 14.9. A right paratracheal node measuring 1.9 cm also was consistent with metastatic disease. A right lower lung lesion adjacent to the pericardium measuring 1.7 cm was FDG avid with SUV 11.6 cm, consistent with a satellite nodule. On 02/03/2021 she underwent bronchoscopy with EBUS. There was noted to be visible mucosal irregularity starting very close to the indira with narrowing of the right mainstem bronchus. The appearance was consistent with malignancy. Endobronchial and transbronchial biopsies were obtained. EBUS showed evidence of mediastinal and hilar lymphadenopathy. FNA biopsy was obtained from a station 7 lymph node. Pathology on the station 7 lymph node biopsy were positive for squamous cell carcinoma. The PD-L1 expression to IHC 22C3 was < 1%. I had seen her initially on 02/09/2021. By clinical evaluation, her disease appeared to to be stage IIIB (T4, N2, M0), but after discussion with Dr. Chaves, it was determined that her lung disease could be encompassed within a single radiation field, she was recommended to undergo chemoradiation. She began radiation concurrently with carboplatin/paclitaxel chemotherapy on 03/15/2021. She completed radiation on 04/29/2021 to a total dose of 6000 cGy. She was able to tolerate the chemotherapy with acceptable toxicity, though she was not entirely compliant with the treatment, and she ended up completing a total of 5 weekly infusions of carboplatin/paclitaxel. Her restaging chest CT on 05/18/2021 showed a significant decrease in the medial right upper lobe paratracheal mass measuring 1.7 x 1.2 cm. There was persistent but slightly improved postobstructive atelectasis in the right upper lobe. A satellite nodule abutting the right pericardium was noted to have essentially resolved. There was no evidence of disease progression. With that finding, she was recommended to proceed with maintenance immunotherapy. At the time of her initial evaluation, she also was mildly anemic with transferrin saturation low at 7%, consistent with iron deficiency. As the anemia had not been correcting with oral iron supplementation, she was given parenteral iron replacement with Injectafer. Her medical history is otherwise significant for COPD and GERD. She has a history of untreated hepatitis C. She also has a history of chronic pain with associated substance abuse and opiate addiction, for which she is receiving treatment through a methadone clinic. She has a history of smoking for 40 years, previously up to 1-1/2 packs of cigarettes daily. She currently smokes 1/2 pack/day. INTERIM HISTORY: She began cycle 1 of maintenance immunotherapy with avelumab on 06/07/2021. It was administered at a fixed 4-week dosage of 1500 mg by IV infusion. She tolerated it without acute toxicity. At her follow-up visit on 07/06/2021 she had multiple complaints, most significantly shortness of breath and productive cough. I opted to put her treatment on hold, though chest x-ray showed slight improvement in the volume loss and postobstructive atelectasis from the right hilar mass and no other acute findings. As of her follow-up visit on 07/21/2021 she continued to have multiple complaints and poor performance status, I opted to keep her treatment on hold. Her restaging PET/CT on 08/13/2021 showed marked improvement in the right upper lobe neoplasm with residual mass measuring 2.0 cm in diameter, SUV 4.0. Malignant mediastinal adenopathy in the right paratracheal and subcarinal regions was noted to be subcentimeter in size and FDG negative in the right pericardial satellite lesion was noted to have resolved. Overall, there was evidence of significant treatment response and there were no findings to indicate osseous or other metastatic disease. At her follow-up visit on 08/22/2021 she was emotionally distraught, having decided to go off methadone. At that point she appeared to be on the verge of going into withdrawal. After discussion with Dr. Gutiérrez, I did offer her the option to start extended release morphine at 30 mg every 12 hours. For what ever reason, she ultimately decided to just stay on the methadone. She has pretty much back to her baseline now, with her pain varying from day today. Today she says she does not have any pain. She has limited activity, but she has been doing some light work at home. She has good appetite. She has not had fever. She does report having some sweating at night. She has sinus drainage and cough. She has some shortness of breath, but she says her breathing generally has been okay. She occasionally has chest pain. She does report having nausea. Bowel and bladder function have been okay. She occasionally has headache. She gets dizzy when she turns. She occasionally has tingling in her right upper back area. Medications: Albuterol Sulfate 1 - 2 Puff(s) (of 108 (90 base) mcg/act) Aerosol Powder, Breath Activated Inhalation q 4 hours PRN, Benadryl Allergy 2 (25 mg) Tablet Oral b.i.d., Dexamethasone 5 Tablet (of 4 mg) Oral, Famotidine 1 (20 mg) Tablet Oral four times a day PRN, Ibuprofen 1 (200 mg) Capsule Oral t.i.d. PRN, LORazepam 0.5 - 1 Tablet (of 1 mg) Oral t.i.d. PRN, Methadone HCl 1 (40 mg) Tablet Soluble Oral daily, Mirtazapine 1 (30 mg) Tablet Oral daily, Omeprazole Magnesium 1 (20 mg) Tablet, enteric coated Oral daily, Prochlorperazine Maleate 1 Tablet (of 10 mg) Oral q 4 hours PRN, Senna S 1 (8.6-50 mg) Tablet Oral t.i.d., Symbicort 1 Puff(s) (of 160-4.5 mcg/act) Aerosol Inhalation b.i.d., Tagamet HB 1 Tablet (of 200 mg) Tablet Oral daily, Vitamin C 1 Capsule (of 500 mg) Oral daily Allergies: Azithromycin, Latex, Nalbuphine HCl, and Sulfa Antibiotics. Vital Signs: Performed on Sep 06, 2021 12:39 Height - 62.00 in Weight - 110.4 lbs (HIGH) BSA - 1.48 sq.m BMI - 20.19 Temperature - 97.0 F (LOW) Pulse - 102 /min (HIGH) Respiration - 18 /min BP - 162/79 mm(hg) (HIGH) O2 Sat - 96 % Pain - 0 Fatigue - 5 Physical Examination: Constitutional - She appears generally weak and chronically ill, Eyes - Sclerae nonicteric. Conjunctivae clear, ENMT - No lesions noted in the oral cavity, Hematologic/Lymphatic - No cervical, clavicular, or axillary adenopathy, Respiratory - Lungs sound clear with diminished air movement bilaterally, Cardiovascular - Heart rhythm is regular. There is a II/ systolic murmur. There is no gallop or rub noted, Abdomen - Soft. Liver and spleen are not enlarged. There is no abdominal mass or ascites noted and there is no inguinal adenopathy, Extremities - No edema, Integumentary - There are findings consistent with subungual infection involving the left great toe, Neurologic - No focal neurologic deficits noted. Lab/Imaging: Test performed on Sep 06, 2021 08:38 Sodium 136 mmol/L TSH 1.24 uIU/mL Potassium 4.8 mmol/L Chloride 98 mmol/L CO2 28 mmol/L Anion Gap 14.8 BUN 20 mg/dL Creatinine 0.7 mg/dL Cr Clearance (Est) 69.25 mL/min eGFR 85.9 mL/min Glucose 117 mg/dL Osmolality - Calculated 286 mOsm/kg Calcium 8.6 mg/dL Protein, Total 6.3 g/dL Albumin 3.8 g/dL Globulin 2.5 g/dL Bilirubin, Total 0.2 mg/dL ALT (SGPT) 11 U/L AST (SGOT) 10 U/L Alkaline Phosphatase 84 IU/L WBC 10.7 10 3/uL RBC 3.62 10 6/uL HGB 11.8 g/dL HCT 36.3 % MCV 100.3 fl MCH 32.6 pg MCHC 32.5 g/dL RDW 12.9 % Platelet Count 194 10 3/cmm MPV 8.6 fL Neutrophils 9.89 10 3/uL Lymphocytes 0.3 10 3/uL Monocytes 0.4 10 3/uL Eosinophils 0.0 10 3/uL Basophils 0.0 10 3/uL Neutrophil % 92.3 % Lymphocyte % 2.6 % Monocyte % 3.5 % Eosinophil % 0.2 % Basophils % 0.2 % NRBC % 0 % Problem List: 1. Squamous cell carcinoma involving the upper lobe of the right lung, by clinical evaluation stage IIIB (T4, N2, M0). She has associated right upper lobe atelectasis. 2. Iron deficiency anemia. 3. Chronic pain for which she is on methadone, administered through methadone clinic. 4. She has history of substance abuse and opiate addiction. 5. COPD. 6. GERD. 7. History of hepatitis C, untreated. 8. Anxiety and depression. She has associated panic attacks. 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 She had associated right upper lobe atelectasis. She underwent bronchoscopy/EBUS on 02/03/2021, and she had biopsy-proven involvement in a subcarinal lymph node. There was a suspected satellite nodule in the right lower lobe by PET/CT. I reviewed the PET/CT images with Dr. Chaves, and it appeared that the primary tumor and satellite nodule could be encompassed within radiation field. As such, she was recommend undergo chemoradiation for primary treatment. She began radiation concurrently with carboplatin/paclitaxel chemotherapy on 03/15/2021. She completed radiation on 04/29/2021 to a total dose of 6000 cGy. She was not entirely compliant with the chemotherapy, and she ended up completing a total of 5 weekly infusions of carboplatin/paclitaxel. Overall, though, she tolerated the treatment well. Her restaging chest CT showed evidence of significant response to the chemoradiation and no evidence of disease progression. As such, she was recommended to proceed with maintenance immunotherapy. She began cycle 1 of maintenance immunotherapy with avelumab on 06/07/2021. It was administered at a fixed 4-week dosage of 1500 mg by IV infusion. She tolerated it without acute toxicity. At her follow-up visit on 07/06/2021 she had multiple complaints, significantly shortness of breath and productive cough, and I opted to put her treatment on hold. During follow-up she continued to have multiple complaints and poor performance status, though restaging PET/CT on 08/13/2021 continued to show evidence of significant treatment response with no evidence of disease progression. As of her follow-up visit on 08/22/2021 her treatment remained on hold, in part due to social issues. She now appears to have stabilized. In the absence of any evidence of disease progression and with no clear-cut evidence of treatment related pneumonitis, she will proceed now with cycle 2 of maintenance durvalumab at 1500 mg by IV infusion. She will be scheduled for a follow-up visit in 4 weeks. Signed By: Sean Tadeo M.D. <<Signature on File>>
--- NOTE | 2021-09-27 14:51 | XRR_ITS ---
PROCEDURE INFORMATION: Exam: XR Lumbosacral Spine Exam date and time: 09/27/2021 2:51 PM Age: 56 years old Clinical indication: Pain and injury or trauma; Fall; Blunt trauma (contusions or hematomas); Low back pain; Injury date: 1.5 months ago; Injury details: Fell on concrete x 1.5 month, swelling from head to toe x 2 wks, severe back pain; Prior surgery; Surgery type: Lung; Additional info: Lung cancer/lower back pain TECHNIQUE: Imaging protocol: XR of the lumbosacral spine. Views: 2 or 3 views. COMPARISON: CR Lumbar Spine Flex/Extens [id number] 01/16/2017 8:37 AM FINDINGS: Bones/joints: Multilevel degenerative disc disease. Vertebral body heights are maintained. Facet arthropathy at L4-L5 and L5-S1. Soft tissues: Unremarkable. XR/XR lumbar spine 2-3V* [id number] IMPRESSION: No acute abnormality. Radiation Dose CTDIVOL = (mGy): DLP = (mGy-cm)
--- NOTE | 2021-09-27 14:51 | XRR_ITS ---
PROCEDURE INFORMATION: Exam: XR Thoracic Spine Exam date and time: 09/27/2021 2:51 PM Age: 56 years old Clinical indication: Pain and injury or trauma; Fall; Blunt trauma (contusions or hematomas); Other: Lower back pain; Injury date: 1.5 months ago; Injury details: Fell on concrete x 1.5 month, swelling from head to toe x 2 wks, severe back pain; Prior surgery; Surgery type: Lung; Additional info: Lung cancer/lower back pain TECHNIQUE: Imaging protocol: XR of the thoracic spine. Views: 3 views. COMPARISON: CR XR chest 2V* [id number] 07/07/2021 9:58 AM FINDINGS: Tubes, catheters and devices: Right approach central venous catheter with its tip in the distal superior vena cava. Bones/joints: Vertebral body heights are maintained. Soft tissues: Unremarkable. Other findings: Diffuse demineralization of the bones. XR/XR thoracic spine 3V* [id number] IMPRESSION: No acute abnormality. Radiation Dose CTDIVOL = (mGy): DLP = (mGy-cm)
== END 2021-09-27 23:59 | disposition home or self-care (01) ==
LOC: ONCMED 14:50
PROVIDERS: PCP Family Medicine; Visit Provider Internal Medicine Medical Oncology
DX: Z51.12 Encounter for antineoplastic immunotherapy (principal); C34.11 Malignant neoplasm of upper lobe, right bronchus or lung; J98.11 Atelectasis; D50.9 Iron deficiency anemia, unspecified; G89.4 Chronic pain syndrome; Z79.891 Long term (current) use of opiate analgesic; J44.9 Chronic obstructive pulmonary disease, unspecified; K21.9 Gastro-esophageal reflux disease without esophagitis; F41.9 Anxiety disorder, unspecified; F32.9 Major depressive disorder, single episode, unspecified; F41.0 Panic disorder [episodic paroxysmal anxiety]; Z79.899 Other long term (current) drug therapy; Z86.19 Personal history of other infectious and parasitic diseases
CPT/HCPCS: 72072; 72100; 80053; 84443; 85025; 96413; 99215; J7050; J9173

== ENCOUNTER 2021-10-04 06:26 | Outpatient (RCR) | payer MEDICARE, MEDICAID, SELFPAY ==
[2021-10-04 11:36] LABS: Basophils % 0.2 %; Hematocrit 36.9 % (37.0-47.0); Lymphocytes # 0.3 10^3/uL (0.8-4.8); Lymphocytes % 2.6 %; Mean Corpuscular HGB Conc 32.5 g/dL (30.0-36.0); Mean Corpuscular Hemoglobin 31.8 pg (28.0-34.0); Mean Corpuscular Volume 97.9 fl (81-99); Mean Platelet Volume 9.2 fL (7.4-10.4); Monocytes # 0.4 10^3/uL (0.2-0.9); Monocytes % 3.9 %; Neutrophils # 9.28 10^3/uL (1.8-7.7); Neutrophils % 91.7 %; Nucleated Red Blood Cells % 0 %; Platelet Count 250 10^3/cmm (130-400); Red Blood Count 3.77 10^6/uL (4.1-5.3); Red Cell Distribution Width 12.9 % (12.1-15.1); White Blood Count 10.1 10^3/uL (4.0-10.0)
[2021-10-04 11:58] LABS: Alanine Aminotransferase 13 U/L (0-33); Alkaline Phosphatase 100 IU/L (35-105); Anion Gap 18.4 (5-19); Aspartate Amino Transferase 11 U/L (0-32); Blood Urea Nitrogen 20 mg/dL (6-20); Calcium 8.5 mg/dL (8.5-10.5); Carbon Dioxide 24 mmol/L (22-29); Chloride 102 mmol/L (98-107); Globulin 2.6 g/dL (1.3-4.6); Glomerular Filtration Rate 85.9 mL/min (90-130); Glucose 114 mg/dL (65-115); Osmolality Calculated 293 mOsm/kg (285-295); Potassium 4.4 mmol/L (3.5-5.1); Sodium 140 mmol/L (136-145); Total Bilirubin 0.2 mg/dL (0.15-1.2); Total Protein 6.6 g/dL (6.6-8.7)
[2021-10-04 11:59] LABS: Thyroid Stimulating Hormone 0.62 uIU/mL (0.27-4.20)
== END 2021-10-28 23:59 | disposition home or self-care (01) ==
LOC: ONCMED 06:26
PROVIDERS: PCP Family Medicine; Visit Provider Nurse Practitioner Family
DX: C34.11 Malignant neoplasm of upper lobe, right bronchus or lung (principal); J98.11 Atelectasis; D50.9 Iron deficiency anemia, unspecified; G89.4 Chronic pain syndrome; Z79.891 Long term (current) use of opiate analgesic; F11.11 Opioid abuse, in remission; J44.9 Chronic obstructive pulmonary disease, unspecified; K21.9 Gastro-esophageal reflux disease without esophagitis; Z86.19 Personal history of other infectious and parasitic diseases; F41.9 Anxiety disorder, unspecified; F32.9 Major depressive disorder, single episode, unspecified; F41.0 Panic disorder [episodic paroxysmal anxiety]; M51.37 Other intervertebral disc degeneration, lumbosacral region; F45.42 Pain disorder with related psychological factors; Z92.21 Personal history of antineoplastic chemotherapy; Z92.3 Personal history of irradiation; Z92.25 Personal history of immunosuppression therapy
CPT/HCPCS: 36591; 80053; 84443; 85025; 99214; 99215

== ENCOUNTER 2021-10-06 11:43 | Emergency (ER) | payer MEDICARE, MEDICAID, SELFPAY ==
[2021-10-06 12:17] VITALS: BP 142/88; PULSE 95; RESP 18; TEMP 36.7; O2SAT 96; BMI 19.1
[2021-10-06 12:31] VITALS: BP 116/86; PULSE 95; RESP 16; O2SAT 96
--- NOTE | 2021-10-06 13:07 | ED_ITS ---
HPI - Back Pain/Injury General: Chief Complaint: Back Pain/Injury Stated Complaint: FALL/BACK PAIN Time Seen by Provider: 10/06/21 13:07 Source: patient Mode of arrival: wheelchair History of Present Illness: MD elicited complaint: back pain Pertinent past history: prior back pain Quality: throbbing Location: lumbar spine Associated symptoms: Reports difficulty walking Review of Systems Musc: Reports: back pain and muscle weakness Neuro: Reports: difficulty walking [facility] ED PFSH: Medical History Anxiety and depression Chronic low back pain Gastroesophageal reflux disease with ulceration Hepatitis C Microscopic hematuria Surgical History H/O section H/O: hysterectomy Family History Other CAD (coronary artery disease) Cancer Diabetes Social History Smoking and tobacco status: current every day smoker cigarettes Years cigar ettes smoked: 40 Quit status (tobacco): considering quitting Second hand smoke exposure: Yes Smoking risk assessment/counseling performed?: Yes Alcohol intake: former Former alcohol use details: 25 years Lives independently: Yes Household members: spouse Housing: House Marital status: Life Partner service: No Current occupational status: disabled Pets and animals: Yes History of recent travel: No Current gender identity: Female Special elida needs: No Physical Exam Back/Pelvis: LUMBAR SPINE/LOWER BACK: Yes ROM limited Course ED course: Pt has ongoing arthritis and osteoporosis changes in her lower back, today she states pain is much worse and is feeling weak and increased pain. No neuro deficits and pt states xrays are too painful for her so we will treat for an acute lumbar radiculopathy and recommend pt est PCP for possible further work up of her chronic lower back pain. Vital Signs: Vital signs: Vital Signs Temperature 98.0 F 10/06/21 12:17 Pulse Rate 95 10/06/21 12:31 Respiratory Rate 16 10/06/21 12:31 Blood Pressure 116/86 10/06/21 12:31 Pulse Oximetry 96 10/06/21 12:31 Discharge Plan Discharge Condition: Stable Prescriptions: New celecoxib [Celebrex] 400 mg capsule 400 mg PO DAILY Qty: 10 RF: 0 No Action diphenhydramine HCl [Benadryl Allergy] 25 mg tablet 25 mg PO QID PRN (Reason: Allergy Symptoms) RF: 0 Zyrtec 10 mg capsule 10 mg PO DAILY RF: 0 omeprazole 20 mg capsule,delayed release(DR/EC) 20 mg PO DAILY RF: 0 albuterol sulfate [Ventolin HFA] 90 mcg/actuation HFA aerosol inhaler 1 puff INHALATION QID PRN (Reason: shortness of breath or wheezing) Qty: 8.5 RF: 5 methadone 40 mg tablet,soluble 90 mg PO DAILY RF: 0 ipratropium-albuterol 0.5 mg-3 mg(2.5 mg base)/3 mL solution for nebulization 3 ml inhalation Q4H PRN (Reason: wheezing) Qty: 180 RF: 3 ferrous sulfate [FeroSul] 325 mg (65 mg iron) tablet 325 mg PO BID Qty: 28 RF: 0 budesonide-formoterol [Symbicort] 160-4.5 mcg/actuation HFA aerosol inhaler 2 puff inhalation BID Qty: 30.6 RF: 3 mirtazapine 30 mg tablet 30 mg PO DAILY 21 Days Qty: 21 RF: 0 famotidine [Pepcid] 20 mg Tablet 20 mg PO DAILY RF: 0 casanthranol-docusate sodium 30-100 mg Capsule 1 cap PO BEDTIME RF: 0 Referrals: Mallory Gutiérrez DO [Primary Care Provider] - Discharge Diet: Advance as tolerated Discharge Activity: Increase activity as tolerated Activity Restrictions/Additional Instructions: Follow up with pcp for possible referral for MRI. Coding Level of Care Code ED Senior [employer] Parach[employer]ist for Dunia Moore
[2021-10-06] MEDS: dexamethasone 10 mg/mL INJ IM (14:27)
[2021-10-06] MEDS: orphenadrine 30 mg/mL Inj 2 mL 60 MG IM (14:33)
[2021-10-06] MEDS: CELEcoxib 200 mg Capsule 400 MG PO (14:34)
== END 2021-10-06 15:01 ==
PROVIDERS: Emergency Provider Nurse Practitioner Family; PCP Family Medicine
DX: M54.9 Dorsalgia, unspecified (principal); Z79.891 Long term (current) use of opiate analgesic; Z86.19 Personal history of other infectious and parasitic diseases; F17.210 Nicotine dependence, cigarettes, uncomplicated
CPT/HCPCS: 96372; 99283; J1100; J2360

== ENCOUNTER 2021-10-23 10:27 | Inpatient (IN) | payer MEDICARE, MEDICAID, SELFPAY ==
--- NOTE | 2021-10-23 10:48 | XRR_ITS ---
PROCEDURE INFORMATION: Exam: XR Chest Exam date and time: 10/23/2021 10:48 AM Age: 56 years old Clinical indication: Cough; Additional info: Hemopytosis TECHNIQUE: Imaging protocol: XR of the chest. Views: 1 view. COMPARISON: CR XR chest 2V* [id number] 07/07/2021 9:58 AM FINDINGS: Tubes, catheters and devices: Stable right Mediport catheter. Lungs: Probable previous partial right pneumonectomy with loss of volume in the right hemithorax. Stable COPD . Pleural spaces: Unremarkable. No pleural effusion. No pneumothorax. Heart/Mediastinum: Unremarkable. No cardiomegaly. Bones/joints: Unremarkable. Other findings: Patient rotation to the right. XR/XR chest 1V portable [id number] IMPRESSION: 1. Stable right Mediport catheter. 2. Probable previous partial right pneumonectomy with loss of volume in the right hemithorax. 3. Stable COPD .
[2021-10-23 11:02] VITALS: BP 94/65; PULSE 114; RESP 16; TEMP 37; O2SAT 94; BMI 16.2
--- NOTE | 2021-10-23 11:11 | ED_ITS ---
HPI - General Adult General: Chief complaint: Abdominal Pain Stated complaint: coughing up blood, cancer pt, back pain Time Seen by Provider: 10/23/21 11:10 History of Present Illness: HPI narrative: Ms. Thakkar is a 56-year-old lady with significant past medical history of renal and lung cancer who presents emergency department due to abdominal pain and hemoptysis. She reports a general decline in status over the past month including feeling more pain on a daily basis mostly in her abdomen and flank as well as feeling more hunched over. Today she had a coughing spell and felt a pop in her back. Since that time she has had multiple episodes of hemoptysis which is dark red color. Mild associated shortness of breath. Pain in her abdomen and flank is mostly aching. Mildly worse with palpation and movement. Does occasionally have intermittent groin pain as well. No urinary symptoms. She has had bowel movements. Some nausea. Overall the course of symptoms has been worsening. No other specific changes to health, exacerbating, or relieving factors identified. Review of Systems General: Reports: 10 or more systems reviewed and unremarkable except in HPI and below PFSH ED PFSH: Medical History Anxiety and depression Chronic low back pain Gastroesophageal reflux disease with ulceration Hepatitis C Microscopic hematuria Surgical History H/O section H/O: hysterectomy Family History Other CAD (coronary artery disease) Cancer Diabetes Social History Smoking and tobacco status: current every day smoker cigarettes Years cigarettes smoked: 40 Quit status (tobacco): considering quitting Second hand smoke exposure: Yes Smoking risk assessment/counseling performed?: Yes Alcohol intake: former Former alcohol use details: 25 years Lives independently: Yes Household members: spouse Housing: House Marital status: Life Partner service: No Current occupational status: disabled Pets and animals: Yes History of recent travel: No Current gender identity: Female Special elida needs: No Physical Exam Narrative: EXAM NARRATIVE: GENERAL/CONSTITUTIONAL - ill-appearing. Eyes - PERRL, no conjunctival injection ENMT - Atraumatic external nose and ears. No oral mucosal lesions NECK - supple. trachea midline CARDIOVASCULAR -tachycardic rate and regular rhythm RESPIRATORY -coarse to auscultation bilaterally. Increased work of breathing ABDOMEN/GI - Nontender/Nondistended. MSK - Extremities without obvious deformity or tenderness to palpation SKIN - Warm, Dry NEURO - alert and appropriately oriented. Moves all extremities equally. Course ED course: - Patient was seen and evaluated by me at bedside - Patient placed on cardiac monitors, IV access obtained - Initial evaluation notable for exam as above -Symptom treatments ordered - Labs notable for leukocytosis, normal hemoglobin with macrocytosis. Metabolic panel without acute electrolyte derangement. - Imaging notable for chest x-ray without acute abnormality to explain patient's symptoms. Patient is high risk given history of cancer for significant pathology requiring acute intervention especially given overall clinical appearance and tachycardia with soft blood pressure. Therefore CT scans warranted. CT scan notable for likely pneumonia. Patient does have pathologic compression fracture of the L1 vertebrae. - Antibiotics ordered - Fracture is likely consistent with the patient's reported history of difficulty standing straight for the past number of weeks. - Upon serial reexamination after treatment the patient was minimally improved with therapy - Based on patient history, evaluation, labs, and imaging as interpreted the most likely cause of the patient's condition is pneumonia resulting in hemoptysis and pathologic fracture. - The results of ED evaluation were discussed with the patient including plan for admission due to requirement for level of care not available if discharged to prevent significant worsening/deterioration. - Hospitalist service contacted and agreed admit the patient - Patient was admitted without further deterioration or significant events. Vital Signs: Vital signs: Vital Signs Temperature 98.1 F 10/27/21 11:15 Pulse Rate 90 10/27/21 11:15 Respiratory Rate 18 10/27/21 11:15 Blood Pressure 105/80 10/27/21 11:15 Pulse Oximetry 97 10/27/21 11:15 MDM - General Adult Medical Records: Attestation: I reviewed the patient's medical records. Lab Data: Attestation: I reviewed the patient's lab results. Labs: Lab Results 10/23/21 10/23/21 10/23/21 12:12 12:12 12:12 WBC 13.9 10^3/uL H 10 ^3/uL (4.0-10.0) RBC 3.73 10^6/uL L 10 ^6/uL (4.1-5.3) Hgb 11.9 g/dL g/dL (11.5-15.3) Hct 37.5 % % (37.0-47.0) MCV 100.5 fl H fl (81-99) MCH 31.9 pg pg (28.0-34.0) MCHC 31.7 g/dL g/dL (30.0-36.0) RDW 12.7 % % (12.1-15.1) Plt Count 312 10^3/cmm 10^3 /cmm (130-400) MPV 9.0 fL fL (7.4-10.4) Neut % (Auto) 91.3 % % Lymph % (Auto) 2.4 % % [place] % (Auto) 4.5 % % Eos % (Auto) 0.2 % % Baso % (Auto) 0.2 % % Neut # (Auto) 12.67 10^3/uL H 1 0^3/uL (1.8-7.7) Lymph # (Auto) 0.3 10^3/uL L 10^ 3/uL (0.8-4.8) [place] # (Auto) 0.6 10^3/uL 10^3/ uL (0.2-0.9) Eos # (Auto) 0.0 10^3/uL 10^3/ uL (0.0-0.8) Baso # (Auto) 0.0 10^3/uL 10^3/ uL (0.0-0.1) Nucleated RBC % (a uto) 0 % % Nucleated RBCs # 0.0 /100WBC /100W BC PT 12.90 SECONDS SEC ONDS (12.1-14.9) INR 0.94 (0.8-1.2) APTT 29.4 SECONDS SECO NDS (23.9-36.7) Sodium 139 mmol/L mmol/L (136-145) Potassium 4.0 mmol/L mmol/L (3.5-5.1) Chloride 97 mmol/L L mmol/ L (98-107) Carbon Dioxide 29 mmol/L mmol/L (22-29) Anion Gap 17.0 (5-19) BUN 12 mg/dL mg/dL (6-20) Creatinine 0.7 mg/dL mg/dL (0.5-0.9) GFR Calculation 85.9 mL/min L mL/ min (90-130) Glucose 80 mg/dL mg/dL (65-115) Calculated Osmolal ity 287 mOsm/kg mOsm/ kg (285-295) Calcium 9.0 mg/dL mg/dL (8.5-10.5) Procalcitonin Urine Color Urine Appearance Urine pH Ur Specific Gravit y Urine Protein Urine Glucose (UA) Urine Ketones Urine Blood Urine Nitrate Urine Bilirubin Urine Urobilinogen Ur Leukocyte Carmina ase Urine RBC Urine WBC Ur Squamous Epith Cells Amorphous Sediment Urine Bacteria Hyaline Casts Urine Mucus 10/23/21 10/24/21 10/24/21 12:12 05:30 05:30 WBC 8.9 10^3/uL 10^3/ uL (4.0-10.0) RBC 3.52 10^6/uL L 10 ^6/uL (4.1-5.3) Hgb 10.9 g/dL L g/dL (11.5-15.3) Hct 35.2 % L % (37.0-47.0) MCV 100.0 fl H fl (81-99) MCH 31.0 pg pg (28.0-34.0) MCHC 31.0 g/dL g/dL (30.0-36.0) RDW 12.7 % % (12.1-15.1) Plt Count 307 10^3/cmm 10^3 /cmm (130-400) MPV 9.1 fL fL (7.4-10.4) Neut % (Auto) 84.3 % % Lymph % (Auto) 5.2 % % [place] % (Auto) 7.2 % % Eos % (Auto) 1.1 % % Baso % (Auto) 0.2 % % Neut # (Auto) 7.51 10^3/uL 10^3 /uL (1.8-7.7) Lymph # (Auto) 0.5 10^3/uL L 10^ 3/uL (0.8-4.8) [place] # (Auto) 0.6 10^3/uL 10^3/ uL (0.2-0.9) Eos # (Auto) 0.1 10^3/uL 10^3/ uL (0.0-0.8) Baso # (Auto) 0.0 10^3/uL 10^3/ uL (0.0-0.1) Nucleated RBC % (a uto) 0 % % Nucleated RBCs # 0.0 /100WBC /100W BC PT 13.10 SECONDS SEC ONDS (12.1-14.9) INR 0.97 (0.8-1.2) APTT 29.8 SECONDS SECO NDS (23.9-36.7) Sodium Potassium Chloride Carbon Dioxide Anion Gap BUN Creatinine GFR Calculation Glucose Calculated Osmolal ity Calcium Procalcitonin Urine Color Dark yellow (Yellow) Urine Appearance Clear (CLEAR) Urine pH 7 (5-7) Ur Specific Gravit y 1.010 (1.005-1.030) Urine Protein Neg (Negative) Urine Glucose (UA) Norm (Normal) Urine Ketones 1+ H (Negative) Urine Blood 2+ H (Negative) Urine Nitrate Negative (Negative) Urine Bilirubin Neg (Negative) Urine Urobilinogen 1 mg/dL H mg/dL (Negative) Ur Leukocyte Carmina ase Trace H (Negative) Urine RBC 10-15 /hpf H /hpf (0-2) Urine WBC 0-4 /hpf H /hpf (0-5) Ur Squamous Epith Cells 0-4 /hpf H /hpf (0-5) Amorphous Sediment Not Reportable Urine Bacteria 1+ /hpf H /hpf (NONE) Hyaline Casts 0-4 /lpf H /lpf Urine Mucus 1+ /hpf /hpf 10/24/21 10/24/21 05:30 05:30 WBC RBC Hgb Hct MCV MCH MCHC RDW Plt Count MPV Neut % (Auto) Lymph % (Auto) [place] % (Auto) Eos % (Auto) Baso % (Auto) Neut # (Auto) Lymph # (Auto) [place] # (Auto) Eos # (Auto) Baso # (Auto) Nucleated RBC % (a uto) Nucleated RBCs # PT INR APTT Sodium 144 mmol/L mmol/L (136-145) Potassium 3.8 mmol/L mmol/L (3.5-5.1) Chloride 103 mmol/L mmol/L (98-107) Carbon Dioxide 28 mmol/L mmol/L (22-29) Anion Gap 16.8 (5-19) BUN 9 mg/dL mg/dL (6-20) Creatinine 0.6 mg/dL mg/dL (0.5-0.9) GFR Calculation 102.7 mL/min mL/m in (90-130) Glucose 57 mg/dL L mg/dL (65-115) Calculated Osmolal ity 294 mOsm/kg mOsm/ kg (285-295) Calcium 8.6 mg/dL mg/dL (8.5-10.5) Procalcitonin 0.09 ng/mL ng/mL (0-0.5) Urine Color Urine Appearance Urine pH Ur Specific Gravit y Urine Protein Urine Glucose (UA) Urine Ketones Urine Blood Urine Nitrate Urine Bilirubin Urine Urobilinogen Ur Leukocyte Carmina ase Urine RBC Urine WBC Ur Squamous Epith Cells Amorphous Sediment Urine Bacteria Hyaline Casts Urine Mucus EKG Data^: EKG 1: Attestation: I personally reviewed and interpreted this EKG as follows: EKG interpretation date: 10/23/21 EKG interpretation time: 12:32 Interpretation: Twelve-lead EKG shows a regular rhythm at a rate of 96. [place] interval 158, QRS duration 74, QTc 385. Normal axis. Interpretation: Sinus rhythm. Computer generated interpretation: Chest X-Ray 10/23/21 10:48 IMPRESSION: 1. Stable right Mediport catheter. 2. Probable previous partial right pneumonectomy with loss of volume in the right hemithorax. 3. Stable COPD . Chest/Abdomen/Pelvis CT 10/23/21 11:17 IMPRESSION: 1. Opacities in the right anterior upper lung field with crowded air bronchograms suggesting atelectasis and pneumonia versus scarring from radiation fibrosis/surgery. 2. Loss of volume right upper lobe with superior retraction of hilum and shift of the trachea and superior mediastinum to the right. 3. Moderate centrilobular emphysema. 4. Scarring and/or atelectasis in the medial segment of the right middle lobe. 5. No pulmonary embolus or aortic dissection. IMPRESSION: 1. Interval appearance of pathologic 80% compression fracture involving the right portion of the L1 vertebral body with 5 mm retropulsion bone posteriorly into the spinal canal with borderline to mild central spinal stenosis. 2. Interval appearance of sclerosis in the right posterosuperior L2 vertebral body which could be secondary to pathologic fracture from metastatic disease versus infection versus radiation necrosis/radiation osteitis. 3. 4 mm retropulsion of posterosuperior L4 vertebral body posteriorly into the spinal canal without significant stenosis. 4. Increased 1.2 x 1.1 cm low-density in the medial segment left liver, just anterior superior to the gallbladder fossa which could represent hepatic metastasis versus other lesion. Axial series 3, image 20. Lumbar Spine MRI 10/25/21 10:15 IMPRESSION: Shortened examination due to patient's pain. 1. Again seen is the presumed pathologic fracture involving the right L1 vertebral body with loss of approximately 80% vertebral body height eccentric to the right. Associated fracture cleft. This is unchanged from the recent CT. Mild retropulsion of the posterior superior cortex with mild central canal stenosis. 2. Stable compression of the right eccentric aspect of the L2 vertebral body with associated sclerosis as seen on the recent CT. No significant edema in this location. This is likely due to subacute to chronic compression. 3. Mild central canal stenosis L4-5 due to mild disc bulging. Impingement on the left subarticular recess and traversing left L5 nerve root. Mild left L4-5 foraminal narrowing. C-Arm Fluoroscopy 10/26/21 08:39 Impression: Lumbar kyphoplasty. Discharge Plan Discharge Patient Disposition: Placed in Observation Admit Provider: Luis Angel Young Clinical Impression: Pneumonia, Closed compression fracture of L1 vertebra, Closed compression fracture of L2 vertebra Discharge Diet: Cardiac Discharge Activity: Resume usual activity Coding Level of Care Code ED Production Crew Supervisor for Dunia Moore
--- NOTE | 2021-10-23 11:17 | CTR_ITS ---
PROCEDURE INFORMATION: Exam: CTA Chest With Contrast Exam date and time: 10/23/2021 11:17 AM Age: 56 years old Clinical indication: Other: Hemoptysis, cancer, abdominal pain, mass/pop in back, spine; Shortness of breath TECHNIQUE: Imaging protocol: Computed tomographic angiography of the chest with contrast. 3D rendering (Not supervised by radiologist): MIP and/or 3D reconstructed images were created by the technologist. Radiation optimization: All CT scans at this facility use at least one of these dose optimization techniques: automated exposure control; mA and/or kV adjustment per patient size (includes targeted exams where dose is matched to clinical indication); or iterative reconstruction. Contrast material: VISI 320; Contrast volume: 75 ml; Contrast route: INTRAVENOUS (IV); COMPARISON: CT chest w con* [id number] 05/18/2021 9:16 AM RADIATION DOSE METRICS: Total DLP (mGy-cm): 896.26 FINDINGS: Pulmonary arteries: No pulmonary embolus or aortic dissection. Aorta: See Pulmonary arteries finding. Other arteries: Direct origin of the left vertebral artery from the aortic arch which is a normal variant seen in 1% of the population. Lungs: Opacities in the right anterior upper lung field with crowded air bronchograms suggesting atelectasis and pneumonia versus scarring from radiation fibrosis/surgery. Moderate centrilobular emphysema. Scarring and/or atelectasis in the medial segment of the right middle lobe. Pleural spaces: Unremarkable. No pneumothorax. No pleural effusion. Heart: Unremarkable. No cardiomegaly. No pericardial effusion. Mediastinal space: Loss of volume right upper lobe with superior retraction of hilum and shift of the trachea and superior mediastinum to the right. Lymph nodes: Unremarkable. No enlarged lymph nodes. Bones/joints: Unremarkable. No acute fracture. Soft tissues: Unremarkable. PROCEDURE INFORMATION: Exam: CT Abdomen And Pelvis With Contrast Exam date and time: 10/23/2021 11:17 AM Age: 56 years old Clinical indication: Other: Hemoptysis, cancer, abdominal pain, mass/pop in back, spine; Shortness of breath TECHNIQUE: Imaging protocol: Computed tomography of the abdomen and pelvis with contrast. Radiation optimization: All CT scans at this facility use at least one of these dose optimization techniques: automated exposure control; mA and/or kV adjustment per patient size (includes targeted exams where dose is matched to clinical indication); or iterative reconstruction. Contrast material: VISI 320; Contrast volume: 75 ml; Contrast route: INTRAVENOUS (IV); COMPARISON: CT chest w con* [id number] 05/18/2021 9:16 AM RADIATION DOSE METRICS: Total DLP (mGy-cm): 896.26 FINDINGS: Liver: Increased 1.2 x 1.1 cm low-density in the medial segment left liver, just anterior superior to the gallbladder fossa which could represent hepatic metastasis versus other lesion. Axial series 3, image 20. Gallbladder and bile ducts: See Liver finding. Pancreas: Normal. No ductal dilation. Spleen: Normal. No splenomegaly. Adrenal glands: Normal. No mass. Kidneys and ureters: Retroaortic left renal vein which is a normal variant. Stomach and bowel: Unremarkable. No obstruction. No mucosal thickening. Appendix: No evidence of appendicitis. Intraperitoneal space: Unremarkable. No free air. No significant fluid collection. Vasculature: Calcification of the abdominal aorta and/or iliac arteries consistent with atherosclerotic vessel disease. One or more calcified pelvic phleboliths. Lymph nodes: Unremarkable. No enlarged lymph nodes. Urinary bladder: Unremarkable as visualized. Reproductive: Status post hysterectomy. Bones/joints: Interval appearance of pathologic 80% compression fracture involving the right portion of the L1 vertebral body with 5 mm retropulsion bone posteriorly into the spinal canal with borderline to mild central spinal stenosis. Interval appearance of sclerosis in the right posterosuperior L2 vertebral body which could be secondary to pathologic fracture from metastatic disease versus infection versus radiation necrosis/radiation osteitis. 4 mm retropulsion of posterosuperior L4 vertebral body posteriorly into the spinal canal without significant stenosis. Soft tissues: Unremarkable. Other findings: Moderate retained feces. CT/CT angio chest w abd pel w con IMPRESSION: 1. Opacities in the right anterior upper lung field with crowded air bronchograms suggesting atelectasis and pneumonia versus scarring from radiation fibrosis/surgery. 2. Loss of volume right upper lobe with superior retraction of hilum and shift of the trachea and superior mediastinum to the right. 3. Moderate centrilobular emphysema. 4. Scarring and/or atelectasis in the medial segment of the right middle lobe. 5. No pulmonary embolus or aortic dissection. IMPRESSION: 1. Interval appearance of pathologic 80% compression fracture involving the right portion of the L1 vertebral body with 5 mm retropulsion bone posteriorly into the spinal canal with borderline to mild central spinal stenosis. 2. Interval appearance of sclerosis in the right posterosuperior L2 vertebral body which could be secondary to pathologic fracture from metastatic disease versus infection versus radiation necrosis/radiation osteitis. 3. 4 mm retropulsion of posterosuperior L4 vertebral body posteriorly into the spinal canal without significant stenosis. 4. Increased 1.2 x 1.1 cm low-density in the medial segment left liver, just anterior superior to the gallbladder fossa which could represent hepatic metastasis versus other lesion. Axial series 3, image 20.
--- NOTE | 2021-10-23 11:17 | ECG_ITS ---
[facility] Test Date: 2021-10-23 Pat Name: Caridad Thakkar Department: Room: Gender: Female Thread Clipper: : 1965 Requested By: Thom Mesa Order Number: [id number] Ankush MD: Alysha Parada M.D. Measurements Intervals [place] Rate: 96 P: 55 [place]: 158 QRS: 60 QRSD: 74 T: 64 QT: 331 QTc: 420 Interpretive Statements SINUS RHYTHM LEFT ATRIAL ENLARGEMENT [-0.15mV P-WAVE IN V1/V2] Compared to ECG 01/03/2021 11:04:28 No significant changes Electronically Signed On 10-24-2021 16:58:14 NATURALIST by Alysha Parada M.D. [id number]
[2021-10-23] MEDS: ondansetron 2 mg/ML SDV 2 mL 4 MG IVP (12:08)
[2021-10-23] MEDS: morphine 4 mg/mL SDV 1 mL IVP ×2 (12:08→20:51)
[2021-10-23 12:22] LABS: Basophils % 0.2 %; Eosinophils % 0.2 %; Hematocrit 37.5 % (37.0-47.0); Hemoglobin 11.9 g/dL (11.5-15.3); Lymphocytes # 0.3 10^3/uL (0.8-4.8); Lymphocytes % 2.4 %; Mean Corpuscular HGB Conc 31.7 g/dL (30.0-36.0); Mean Corpuscular Hemoglobin 31.9 pg (28.0-34.0); Mean Corpuscular Volume 100.5 fl (81-99); Monocytes # 0.6 10^3/uL (0.2-0.9); Monocytes % 4.5 %; Neutrophils # 12.67 10^3/uL (1.8-7.7); Neutrophils % 91.3 %; Nucleated Red Blood Cells % 0 %; Platelet Count 312 10^3/cmm (130-400); Red Blood Count 3.73 10^6/uL (4.1-5.3); Red Cell Distribution Width 12.7 % (12.1-15.1); White Blood Count 13.9 10^3/uL (4.0-10.0)
[2021-10-23 12:32] LABS: Add Urine Microscopic? YES; Bacteria Urine 1+ /hpf; Bilirubin Urine Neg (Negative); Blood Urine 2+ (Negative); Glucose Urine UA Norm (Normal); Ketones Urine 1+ (Negative); Leukocyte Esterase Urine Trace (Negative); Mucus Urine 1+ /hpf; Nitrate Urine Negative (Negative); Protein Urine Neg (Negative); Squamous Epithelial Cell Urine 0-4 /hpf (0-5); Urine Appearance Clear (CLEAR); Urine Color Dark Yellow (Yellow); Urobilinogen Urine 1 mg/dL (Negative); WBC Urine 0-4 /hpf (0-5); pH Urine 7 (5-7)
[2021-10-23 12:33] LABS: Add Urine Culture? Yes; Hyaline Casts Urine 0-4 /lpf
[2021-10-23 12:34] LABS: INR 0.94 (0.8-1.2)
[2021-10-23 12:35] LABS: Partial Thromboplastin Time 29.4 SECONDS (23.9-36.7)
[2021-10-23 12:40] LABS: Blood Urea Nitrogen 12 mg/dL (6-20); Carbon Dioxide 29 mmol/L (22-29); Chloride 97 mmol/L (98-107); Glomerular Filtration Rate 85.9 mL/min (90-130); Glucose 80 mg/dL (65-115); Osmolality Calculated 287 mOsm/kg (285-295); Sodium 139 mmol/L (136-145)
[2021-10-23] MEDS: iodixanol 320 mg/mL 100mL Btl IV (13:25)
[2021-10-23] MEDS: sodium chloride 0.9% 1,000 ML 999 ML IV (14:21)
[2021-10-23 14:24] VITALS: BP 103/73; PULSE 87; RESP 16; O2SAT 94
[2021-10-23 15:37] VITALS: BP 116/76; PULSE 98; RESP 16; O2SAT 97
--- NOTE | 2021-10-23 17:49 | PM.HP ---
Providers/Chief Complaint Admitting Physician: Luis Angel guzmán MD Chief Complaint: coughing up blood, cancer pt, back pain History of Present Illness Caridad Thakkar is a 56 year old female with PMH of asthma/COPD, chronic smoker, left thyroid nodule, GERD, chronic hoarseness, chronic cough, hepatitis C, chronic back pain on methadone 20 mg daily ,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 Came in today with chief complaint of worsening cough as well as hemoptysis, going on for the last few days, she says that the amount of hemoptysis is close to half a cup, She is also complaining of shortness of breath with exertion. She was also complaining of lower abdominal achy pain, as well as intermittent groin pittman. Patient denies any fever, chest pain, palpitation, nausea vomiting. Upon arrival in the ER she was worked up for above-mentioned complaint: Pertinent imaging studies: CT chest abdomen and pelvis with contrast; Opacities in the right anterior upper lung field with crowded air bronchograms suggesting atelectasis and pneumonia versus scarring from radiation fibrosis/surgery. Moderate centrilobular emphysema. Interval appearance of pathologic 80% compression fracture involving the right portion of the L1 vertebral body with 5 mm retropulsion bone posteriorly into the spinal canal with borderline to mild central spinal stenosis. Liver: Increased 1.2 x 1.1 cm low-density in the medial segment left liver, just anterior superior to the gallbladder fossa which could represent hepatic metastasis versus other lesion. Pertinent labs: WBC 13.9, H&H 11.9 and 37.5, platelet count:312, serum sodium 139 serum potassium 4 BUN serum creatinine:12/0.7, Patient was given 1 dose of Zosyn in the ER for suspected pneumonia. Review of Systems Const: Denies: fever(s), chills, body aches, change in appetite or diaphoresis Card: Denies: palpitations, edema, swelling of feet/ankles or leg pain with exertion Resp: Denies: wheezing or pain on inspiration GI: Denies: abdominal pain, nausea, vomiting, diarrhea or constipation : Denies: flank pain Musc: Denies: back pain, extremity pain or extremity swelling Neuro: Denies: headache(s), difficulty walking or confusion Medications/Allergies Home Medications Medication Instructions Recorded Confirmed Last Taken Type methadone 40 mg soluble tablet 90 mg PO DAILY tab 04/07/20 10/23/21 10/22/21 History albuterol sulfate 90 mcg/actuation 1 puff INHALATION QID PRN #8.5 gm 10/28/20 10/23/21 03/08/21 Rx aerosol inhaler cetirizine 10 mg capsule 10 mg PO DAILY 10/28/20 10/23/21 03/07/21 History diphenhydramine HCl 25 mg tablet 25 mg PO QID PRN 10/28/20 10/23/21 03/07/21 History omeprazole 20 mg capsule,delayed 20 mg PO DAILY 10/28/20 10/23/21 10/22/21 History release ipratropium 0.5 mg-albuterol 3 mg 3 ml INHALATION Q4H PRN #180 ml 02/01/21 10/23/21 03/08/21 Rx (2.5 mg base)/3 mL nebulization soln budesonide-formoterol HFA 160 2 puff INHALATION BID #30.6 g 03/21/21 10/23/21 10/22/21 Rx mcg-4.5 mcg/actuation aerosol inhaler levofloxacin 500 mg PO DAILY 10/23/21 10/23/21 10/22/21 History lorazepam 0.5 mg PO DAILY PRN 10/23/21 10/23/21 Unknown History mirtazapine 15 mg PO BEDTIME 10/23/21 10/23/21 10/22/21 History prednisone 10 mg PO DAILY 10/23/21 10/23/21 10/23/21 History Allergies Allergy/AdvReac Type Severity Reaction Status Date / Time latex Allergy itching Verified 10/23/21 11:02 azithromycin [From Zithromax] AdvReac Mild unknown Verified 10/23/21 11:02 nalbuphine [From Nubain] AdvReac Mild hives Verified 10/23/21 11:02 Sulfa (Sulfonamide AdvReac Mild unknown Verified 10/23/21 11:02 Antibiotics) PFSH Acute PFSH: Medical History Anxiety and depression Chronic low back pain Gastroesophageal reflux disease with ulceration Hepatitis C Microscopic hematuria Surgical History H/O section H/O: hysterectomy Family History Other CAD (coronary artery disease) Cancer Diabetes Social History Smoking and tobacco status: current every day smoker cigarettes Years cigarettes smoked: 40 Quit status (tobacco): considering quitting Second hand smoke exposure: Yes Smoking risk assessment/counseling performed?: Yes Alcohol intake: former Former alcohol use details: 25 years Lives independently: Yes Household members: spouse Housing: House Marital status: Life Partner service: No Current occupational status: disabled Pets and animals: Yes History of recent travel: No Current gender identity: Female Special elida needs: No Vitals/I&O/Wt Last Vital Signs Temp 98.6 F 10/23/21 11:02 Pulse 98 10/23/21 15:37 Resp 16 10/23/21 15:37 BP 116/76 10/23/21 15:37 Pulse Ox 97 10/23/21 15:37 Weight last 48 hrs Weight 43.091 kg Physical Exam Const: COMMON NORMALS: patient oriented x3 HENMT: COMMON NORMALS: normocephalic and atraumatic HEAD & SCALP: normocephalic and atraumatic Chest: CHEST: Yes Symmetrical chest wall rise Resp: OTHER: Minimal wheezing present in both the lung field Cardio: COMMON NORMALS: regular rate, regular rhythm, S1 normal heart sound present, S2 normal heart sound present, No gallops present (Cardio), No murmurs present (Cardio), No rub (Cardio) and Peripheral pulses 2+ throughout RATE: regular rate RHYTHM: regular rhythm HEART SOUNDS: S1 normal heart sound present and S2 normal heart sound present PERIPHERAL PULSES: Peripheral pulses 2+ throughout GI: COMMON NORMALS: Normal to inspection, nondistended, normoactive bowel sounds present, Soft to palpation, non-tender, No hepatosplenomegaly present and no masses AUSCULTATION: Yes normoactive bowel sounds PALPATION: Yes Soft to palpation and Yes No hepatosplenomegaly present RECTAL EXAM: deferred Extremity: COMMON NORMALS: no clubbing, cyanosis or edema and no pedal edema Neuro: COMMON NORMALS: patient oriented x3 Data : 10/23/21 12:12 10/23/21 12:12 A&P Assessment and plan (1) Hemoptysis: Status: Acute (2) Obstructive sleep apnea: Status: Acute (3) Asthma-COPD overlap syndrome: Status: Acute (4) Chronic low back pain: Status: Acute Qualifiers: Back pain laterality: unspecified Sciatica presence: unspecified whether sciatica present Qualified Code(s): M54.5 - Low back pain; G89.29 - Other chronic pain (5) Left thyroid nodule: Status: Acute (6) Hepatitis C: Status: Chronic Qualifiers: Viral hepatitis chronicity: chronic Hepatic coma status: without hepatic coma Qualified Code(s): B18.2 - Chronic viral hepatitis C (7) Closed compression fracture of L1 vertebra: Status: Acute (8) Methadone dependence: Status: Acute (9) Pneumonia: Status: Acute Additional A&P Information 56 year old female with PMH of asthma/COPD, chronic smoker, left thyroid nodule, GERD, chronic hoarseness, chronic cough, hepatitis C, chronic back pain on methadone 20 mg daily ,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 Came in today with chief complaint of worsening cough as well as hemoptysis, going on for the last few days, she says that the amount of hemoptysis is close to half a cup, She is also complaining of shortness of breath with exertion. She was also complaining of lower abdominal achy pain, as well as intermittent groin pittman. Patient denies any fever, chest pain, palpitation, nausea vomiting. # Hemoptysis: Likely secondary to fibrotic lung lesion in the right upper lobe: Currently H&H is stable. Continue to monitor hemoglobin. #Possible pneumonia: Patient is complaining of worsening shortness of breath cough with hemoptysis, she was on levofloxacin as an outpatient. CT chest is more in line with: Chronic changes associated with radiation therapy. Follow urine Legionella antigen bacterial antigen panel, procalcitonin Will empirically keep her on ceftriaxone and azithromycin for now. # Asthma COPD overlap syndrome:Not in exacerbation Albuterol inhaler as needed Continue prednisone 10 mg p.o. daily her home medication Antibiotics as above #hepatic mets : Increased 1.2 x 1.1 cm low-density in the medial segment left liver, just anterior superior to the gallbladder fossa which could represent hepatic metastasis versus other lesion. #CODE STATUS: Full code #DVT prophylaxis on SCD Attestations Medical Necessity Statement*: Patient is to be in hospital for management of hemoptysis. Coding Level of Care Code Acute Quality Assurance Consultant for [facility] Diagnoses Hemoptysis R04.2 Obstructive sleep apnea G47.33 Asthma-COPD overlap syndrome J44.9 Chronic low back pain M54.5; G89.29 Back pain laterality: unspecified Sciatica presence: unspecified whether sciatica present Left thyroid nodule E04.1 Hepatitis C B18.2 Viral hepatitis chronicity: chronic Hepatic coma status: without hepatic coma Closed compression fracture of L1 vertebra S32.010A Methadone dependence F11.20 Pneumonia J18.9
--- NOTE | 2021-10-23 18:45 | PC.NURSE ---
Attempted to call report, no answer.
[2021-10-23 20:00] VITALS: BP 121/79; PULSE 80; RESP 22; TEMP 36.8; O2SAT 96
[2021-10-23 20:51] VITALS: RESP 18
[2021-10-23] MEDS: mirtazapine 15 mg Tablet PO (20:51)
[2021-10-23 20:54] VITALS: BMI 18.8
[2021-10-23] MEDS: cefTRIAXone 1,000 MG in sodium chloride 0.9% (plus) 50 ML 100 MG IV (21:03)
[2021-10-23] MEDS: azithromycin 500 MG in sodium chloride 0.9% 250 ML 250 MG IV (22:00)
[2021-10-23 22:50] VITALS: PULSE 91; RESP 18; O2SAT 93
[2021-10-23] MEDS: vancomycin 1,000 MG in sodium chloride 0.9% 250 ML 250 MG IV (23:00)
[2021-10-24] VITALS (8 sets, daily range): BP systolic 92–124; BP diastolic 62–78; PULSE 85–108; RESP 16–20; TEMP 36.8–37.2; O2SAT 91–96
[2021-10-24] MEDS: acetaminophen 325 mg Tablet 650 MG PO (05:33)
[2021-10-24 06:12] LABS: Basophils % 0.2 %; Eosinophils # 0.1 10^3/uL (0.0-0.8); Eosinophils % 1.1 %; Hematocrit 35.2 % (37.0-47.0); Hemoglobin 10.9 g/dL (11.5-15.3); Lymphocytes # 0.5 10^3/uL (0.8-4.8); Lymphocytes % 5.2 %; Mean Platelet Volume 9.1 fL (7.4-10.4); Monocytes # 0.6 10^3/uL (0.2-0.9); Monocytes % 7.2 %; Neutrophils # 7.51 10^3/uL (1.8-7.7); Neutrophils % 84.3 %; Nucleated Red Blood Cells % 0 %; Platelet Count 307 10^3/cmm (130-400); Red Blood Count 3.52 10^6/uL (4.1-5.3); Red Cell Distribution Width 12.7 % (12.1-15.1); White Blood Count 8.9 10^3/uL (4.0-10.0)
[2021-10-24 06:31] LABS: INR 0.97 (0.8-1.2)
[2021-10-24 06:32] LABS: Partial Thromboplastin Time 29.8 SECONDS (23.9-36.7)
[2021-10-24 06:33] LABS: Anion Gap 16.8 (5-19); Blood Urea Nitrogen 9 mg/dL (6-20); Calcium 8.6 mg/dL (8.5-10.5); Carbon Dioxide 28 mmol/L (22-29); Chloride 103 mmol/L (98-107); Glomerular Filtration Rate 102.7 mL/min (90-130); Glucose 57 mg/dL (65-115); Osmolality Calculated 294 mOsm/kg (285-295); Potassium 3.8 mmol/L (3.5-5.1); Sodium 144 mmol/L (136-145)
[2021-10-24 06:39] LABS: Procalcitonin 0.09 ng/mL (0-0.5)
[2021-10-24] MEDS: morphine 4 mg/mL SDV 1 mL IVP (08:18)
[2021-10-24] MEDS: pantoprazole DR 40 mg Tablet 20 MG PO (08:35)
[2021-10-24] MEDS: predniSONE 10 mg Tablet PO (08:35)
--- NOTE | 2021-10-24 10:32 | PC.CHAP ---
Pastoral Care Encounter/Spiritual Assessment Type of Contact [] Declined cafeteria manager visit [] Patient/Family/Request visit [] Outpatient visit [] Follow-up visit [] Physician referral [] Code/Alert [x] Routine visit [] Staff referral [] Actively dying [] Patient sleeping [] Family support [] [] Out of room [] Palliative care [] [] Receiving care in room [] Pre-surgical visit [] Trauma [] Long length of stay [] ICU visit [] Other: Relational/Emotional Strength [x] Patient feels connected with others/family/visitors/staff [] Distress [] Loneliness/isolation [] Abandonment Spirituality of Patient [x] Person of Caro [x] Attends Pentecostalism of their Caro [x] Believes in Prayer [] Reads Bible or Pentecostal materials [] There are Spiritual issues to be addressed Pad Cutter Interventions [x] Prayer [x] Active listening [x] Non-anxious presence [] Spiritual/emotional support [] Crisis/trauma care [] Spiritual counseling [] Bereavement support [] Provided bereavement packet [] Provided Bible/devotional materials [] Provided toy/stuffed animal, coloring book to patient or family member [] Provided Communion [] Anointing/[place] [] Salvation [x] Completed spiritual assessment [] Other: Impact on Illness or Injury [] Angry [] Fearful [] Anxious [] Often cries [] Exhaustion [] Unable to work [] Unable to attend restoration [] Unable to walk/stand [] Unable to read [] Unable to drive [] Unable to eat/drink [] Unable to sleep [] Unable to be with family [] Patient intubated [] Other: Summary Time spent with patient 10 min
[2021-10-24] MEDS: methadone 10 mg Tablet 85 MG PO (10:55)
--- NOTE | 2021-10-24 11:58 | PM.CONSULT ---
Providers/Reason For Consult Consulting Physician/Specialty*: Orthopedics Reason for Consult*: Low back pain Attending Physician: Joseluis Tovar MD History of Present Illness History of Present Illness Caridad Thakkar is a 56 year old female presents to [facility] complaining of back pain. She has a long history of lung cancer. She reports her back pain has been ongoing for a number of months. She reports falling 2 weeks ago when her back pain became much worse. She denies any leg pain all of her pain is localized to her low back. She describes a sharp stabbing constant nature with pain that radiates around around to her abdomen and umbilicus. Rest gives her some temporary relief. Any movement makes it much worse. She ranks the pain as 8 out of 10 on the pain scale. Denies any loss of bowel or bladder control. An extensive review of the patient's past medical history, surgical history, allergies, medications, family history, social history, and review of systems was completed Review of Systems Const: Denies: fever(s), chills, body aches, change in appetite or diaphoresis Card: Denies: palpitations, edema, swelling of feet/ankles or leg pain with exertion Resp: Denies: wheezing or pain on inspiration GI: Denies: abdominal pain, nausea, vomiting, diarrhea or constipation : Denies: flank pain Musc: Denies: back pain, extremity pain or extremity swelling Neuro: Denies: headache(s), difficulty walking or confusion All/Imm: Denies: acute wheezing Meds/Allergies Home Medications and Allergies Home Medications Medication Instructions Recorded Confirmed Last Taken Type methadone 40 mg soluble tablet 90 mg PO DAILY tab 04/07/20 10/23/21 10/22/21 History albuterol sulfate 90 mcg/actuation 1 puff INHALATION QID PRN #8.5 gm 10/28/20 10/23/21 03/08/21 Rx aerosol inhaler cetirizine 10 mg capsule 10 mg PO DAILY 10/28/20 10/23/21 03/07/21 History diphenhydramine HCl 25 mg tablet 25 mg PO QID PRN 10/28/20 10/23/21 03/07/21 History omeprazole 20 mg capsule,delayed 20 mg PO DAILY 10/28/20 10/23/21 10/22/21 History release ipratropium 0.5 mg-albuterol 3 mg 3 ml INHALATION Q4H PRN #180 ml 02/01/21 10/23/21 03/08/21 Rx (2.5 mg base)/3 mL nebulization soln budesonide-formoterol HFA 160 2 puff INHALATION BID #30.6 g 03/21/21 10/23/21 10/22/21 Rx mcg-4.5 mcg/actuation aerosol inhaler levofloxacin 500 mg PO DAILY 10/23/21 10/23/21 10/22/21 History lorazepam 0.5 mg PO DAILY PRN 10/23/21 10/23/21 Unknown History mirtazapine 15 mg PO BEDTIME 10/23/21 10/23/21 10/22/21 History prednisone 10 mg PO DAILY 10/23/21 10/23/21 10/23/21 History Allergies Allergy/AdvReac Type Severity Reaction Status Date / Time latex Allergy itching Verified 10/23/21 11:02 azithromycin [From Zithromax] AdvReac Mild unknown Verified 10/23/21 11:02 nalbuphine [From Nubain] AdvReac Mild hives Verified 10/23/21 11:02 Sulfa (Sulfonamide AdvReac Mild unknown Verified 10/23/21 11:02 Antibiotics) Current Medications Current Medications Generic Name Dose Route Start Last Admin Trade Name Freq PRN Reason Stop Dose Admin Acetaminophen 650 mg 10/23/21 17:44 10/24/21 05:33 Acetaminophen 325 Mg Tablet PO 650 mg Q6H PRN Administration Mild/Mod Pain Or Temp >/= 101 Ceftriaxone Sodium 1,000 mg/ 50 mls @ 100 mls/hr 10/23/21 18:00 10/23/21 21:35 Sodium Chloride IV Infused Q24H TANVI Infusion Protocol Azithromycin 500 mg/ Sodium 250 mls @ 250 mls/hr 10/23/21 18:00 10/23/21 23:02 Chloride IV Infused Q24H TANVI Infusion Protocol Mirtazapine 15 mg 10/23/21 21:00 10/23/21 20:51 Mirtazapine 15 Mg Tablet PO 15 mg BEDTIME TANVI Administration Pantoprazole Sodium 20 mg 10/24/21 09:00 10/24/21 08:[address] 40 Mg Tablet PO 20 mg DAILY TANVI Administration Prednisone 10 mg 10/24/21 09:00 10/24/21 08:35 Prednisone 10 Mg Tablet PO 10 mg DAILY TANVI Administration PFSH Acute PFSH: Medical History Anxiety and depression Chronic low back pain Gastroesophageal reflux disease with ulceration Hepatitis C Microscopic hematuria Surgical History H/O section H/O: hysterectomy Family History Other CAD (coronary artery disease) Cancer Diabetes Social History Smoking and tobacco status: current every day smoker cigarettes Years cigarettes smoked: 40 Quit status (tobacco): considering quitting Second hand smoke exposure: Yes Smoking risk assessment/counseling performed?: Yes Alcohol intake: former Former alcohol use details: 25 years Lives independently: Yes Household members: spouse Housing: House Marital status: Life Partner service: No Current occupational status: disabled Pets and animals: Yes History of recent travel: No Current gender identity: Female Special elida needs: No Dietary Habits: Current diet type/program: regular Caffeine: Yes Vitals/I&O/Wt Last Vital Signs Temp 98.3 F 10/24/21 08:00 Pulse 97 10/24/21 08:00 Resp 18 10/24/21 10:55 BP 108/76 10/24/21 08:00 Pulse Ox 91 10/24/21 08:00 10/23/21 10/24/21 10/24/21 22:59 06:59 14:59 Intake Total 1250 / 1250 980 / 2230 240 / 240 Balance 1250 / 1250 980 / 2230 240 / 240 Weight last 48 hrs Weight 109 lb 11.2 oz Weight 106 lb 9 oz Weight 95 lb Physical Exam Narrative: EXAM NARRATIVE: Exhibits normal coordination and normal stability. Moderate palpatory or percussion pain throughout the paraspinous musculature of the thoracolumbar spine. Normal sensation to light touch through all dermatomal layers. Pain with palpation around the abdomen. Normal sensation light touch down both lower extremities with 4/5 motor strength throughout all motor groups. No palpable pain over the SI joints bilaterally. Negative Dhaval and Fabere sign. Negative straight leg raise bilaterally. Skin is clear warm with normal station light touch calves are supple with no medial thigh tenderness negative Homans' sign. No palpable lymphadenopathy bilaterally. Reflexes are 2+ and symmetric about the knees and Achilles. No hyperreflexia or clonus. Downgoing Babinski's bilaterally. Dorsalis pedis and posterior tibial pulses are 2+. No palpable edema bilaterally. HENMT: COMMON NORMALS: normocephalic HEAD & SCALP: normocephalic Resp: COMMON NORMALS: normal respiratory effort Cardio: COMMON NORMALS: regular rate and regular rhythm RATE: regular rate RHYTHM: regular rhythm GI: PALPATION: Yes Tenderness to palpation present (GI) Neuro: COMMON NORMALS: moves all extremities Psych: COMMON NORMALS: cooperative Data Micro: Micro: Microbiology 10/23/21 12:12 Urine Culture - Pr eliminary Urine,Clean Catch A&P Assessment and plan (1) Closed compression fracture of L1 vertebra: Radiographs from 09/27/2021 shows degenerative changes but no evidence of fracture. CT scan shows compression fracture at L1 and L2 with age-indeterminate. Recommend an MRI scan without contrast of her lumbar spine. We will discuss further treatment options pending that study. The meantime keep her in bed rest. Discussed with Dr. Stewart agrees above-stated plan. Status: Acute (2) Closed compression fracture of L2 vertebra: Status: Acute Coding Level of Care Code Acute Embedded Processor for [facility] Diagnoses Closed compression fracture of L1 vertebra S32.010A Closed compression fracture of L2 vertebra S32.020A
[2021-10-24] MEDS: LORazepam 0.5 mg Tablet PO (16:08)
--- NOTE | 2021-10-24 18:28 | PM.PN ---
Vitals/I&O/Wt Last Vital Signs Temp 98.6 F 10/24/21 15:53 Pulse 87 10/24/21 15:53 Resp 18 10/24/21 15:53 BP 124/78 10/24/21 15:53 Pulse Ox 96 10/24/21 15:53 10/24/21 10/24/21 10/24/21 06:59 14:59 22:59 Intake Total 980 / 2230 480 / 480 Balance 980 / 2230 480 / 480 Weight last 48 hrs Weight 49.759 kg Weight 48.336 kg Weight 43.091 kg Physical Exam Const: COMMON NORMALS: no acute distress and patient oriented x3 Resp: COMMON NORMALS: normal respiratory effort, No retractions, No use of accessory muscles and clear to auscultation bilaterally AUSCULTATION: clear to auscultation bilaterally Cardio: COMMON NORMALS: regular rate, regular rhythm, S1 normal heart sound present and S2 normal heart sound present RATE: regular rate RHYTHM: regular rhythm HEART SOUNDS: S1 normal heart sound present and S2 normal heart sound present GI: COMMON NORMALS: Normal to inspection, nondistended, normoactive bowel sounds present, Soft to palpation and non-tender PALPATION: Yes Soft to palpation Extremity: COMMON NORMALS: no pedal edema Neuro: COMMON NORMALS: patient oriented x3 Psych: COMMON NORMALS: mental status grossly normal Data : 10/24/21 05:30 10/24/21 05:30 Micro: Microbiology 10/24/21 11:30 Legionella Urinary Antigen - Final Urine,Voided Bacterial Antigens - Final 10/23/21 12:12 Urine Culture - Preliminary Urine,Clean Catch A&P Assessment and plan (1) Hemoptysis: Status: Acute (2) Obstructive sleep apnea: Status: Acute (3) Asthma-COPD overlap syndrome: Status: Acute (4) Chronic low back pain: Status: Acute Qualifiers: Back pain laterality: unspecified Sciatica presence: unspecified whether sciatica present Qualified Code(s): M54.5 - Low back pain; G89.29 - Other chronic pain (5) Left thyroid nodule: Status: Acute (6) Hepatitis C: Status: Chronic Qualifiers: Viral hepatitis chronicity: chronic Hepatic coma status: without hepatic coma Qualified Code(s): B18.2 - Chronic viral hepatitis C (7) Closed compression fracture of L1 vertebra: Status: Acute (8) Methadone dependence: Status: Acute (9) Pneumonia: Status: Acute Additional A&P Information 56 year old female with PMH of asthma/COPD, chronic smoker, left thyroid nodule, GERD, chronic hoarseness, chronic cough, hepatitis C, chronic back pain on methadone 20 mg daily ,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 Came in today with chief complaint of worsening cough as well as hemoptysis, going on for the last few days, she says that the amount of hemoptysis is close to half a cup, She is also complaining of shortness of breath with exertion. She was also complaining of lower abdominal achy pain, as well as intermittent groin pittman. Patient denies any fever, chest pain, palpitation, nausea vomiting. # Hemoptysis: Likely secondary to fibrotic lung lesion in the right upper lobe: hgb 10.9 Currently H&H is stable. Continue to monitor hemoglobin. if persist will consider discussing with pulmonary #Possible pneumonia: Patient is complaining of worsening shortness of breath cough with hemoptysis, she was on levofloxacin as an outpatient. CT chest is more in line with: Chronic changes associated with radiation therapy. Follow urine Legionella antigen bacterial antigen panel, procalcitonin negative Will empirically keep her on ceftriaxone and azithromycin for now. # Asthma COPD overlap syndrome:Not in exacerbation Albuterol inhaler as needed Continue prednisone 10 mg p.o. daily her home medication Antibiotics as above #hepatic mets : Increased 1.2 x 1.1 cm low-density in the medial segment left liver, just anterior superior to the gallbladder fossa which could represent hepatic metastasis versus other lesion. #Interval appearance of pathologic 80% compression fracture involving the right portion of the L1 vertebral body with 5 mm retropulsion bone posteriorly into the spinal canal with borderline to mild central spinal stenosis -mri spine -consult Dr. looney #CODE STATUS: Full code #DVT prophylaxis on SCD Attestations Medical Necessity Statement*: Patient requires hospitalization for hemoptysis, Coding Level of Care Code Acute Advertising Operations Coordinator for [facility] Diagnoses Hemoptysis R04.2 Obstructive sleep apnea G47.33 Asthma-COPD overlap syndrome J44.9 Chronic low back pain M54.5; G89.29 Back pain laterality: unspecified Sciatica presence: unspecified whether sciatica present Left thyroid nodule E04.1 Hepatitis C B18.2 Viral hepatitis chronicity: chronic Hepatic coma status: without hepatic coma Closed compression fracture of L1 vertebra S32.010A Methadone dependence F11.20 Pneumonia J18.9
[2021-10-24] MEDS: mirtazapine 15 mg Tablet PO (22:24)
[2021-10-24] MEDS: cefTRIAXone 1,000 MG in sodium chloride 0.9% (plus) 50 ML 100 MG IV (22:24)
[2021-10-24] MEDS: azithromycin 500 MG in sodium chloride 0.9% 250 ML 250 MG IV (23:01)
[2021-10-25] VITALS (9 sets, daily range): BP systolic 105–155; BP diastolic 71–105; PULSE 95–117; RESP 15–20; TEMP 36.6–37.2; O2SAT 94–97
[2021-10-25 06:19] LABS: Basophils % 0.4 %; Eosinophils # 0.1 10^3/uL (0.0-0.8); Eosinophils % 1.2 %; Hematocrit 33.8 % (37.0-47.0); Lymphocytes # 0.6 10^3/uL (0.8-4.8); Lymphocytes % 6.5 %; Mean Corpuscular HGB Conc 32.5 g/dL (30.0-36.0); Mean Corpuscular Hemoglobin 31.6 pg (28.0-34.0); Mean Corpuscular Volume 97.1 fl (81-99); Mean Platelet Volume 9.3 fL (7.4-10.4); Monocytes # 0.7 10^3/uL (0.2-0.9); Neutrophils # 7.97 10^3/uL (1.8-7.7); Neutrophils % 82.6 %; Nucleated Red Blood Cells % 0 %; Platelet Count 290 10^3/cmm (130-400); Red Blood Count 3.48 10^6/uL (4.1-5.3); Red Cell Distribution Width 12.7 % (12.1-15.1); White Blood Count 9.7 10^3/uL (4.0-10.0)
[2021-10-25 06:34] LABS: Blood Urea Nitrogen 9 mg/dL (6-20); Calcium 8.6 mg/dL (8.5-10.5); Carbon Dioxide 29 mmol/L (22-29); Chloride 97 mmol/L (98-107); Glomerular Filtration Rate 102.7 mL/min (90-130); Glucose 57 mg/dL (65-115); Osmolality Calculated 284 mOsm/kg (285-295); Sodium 139 mmol/L (136-145)
[2021-10-25 06:36] LABS: Anion Gap 17.1 (5-19); C Reactive Protein 87.2 mg/L (0.0-4.9); Magnesium 1.5 mg/dL (1.7-2.3); Potassium 4.1 mmol/L (3.5-5.1)
[2021-10-25 06:43] LABS: NT Pro B Type Natriuretic Pept 1227 pg/mL (0-125); Procalcitonin 0.11 ng/mL (0-0.5)
--- NOTE | 2021-10-25 07:43 | PC.NURSE ---
I reported pain to the nurse
--- NOTE | 2021-10-25 07:53 | PM.PN ---
Subjective Subjective: Interval history: Patient resting comfortably until awoken when she has increased low back pain. She denies any new injuries denies any leg pain. She still has not had the MRI scan of her lumbar spine. Vitals/I&O/Wt Last Vital Signs Temp 98.3 F 10/25/21 07:42 Pulse 101 H 10/25/21 07:42 Resp 18 10/25/21 07:42 BP 131/79 10/25/21 07:42 Pulse Ox 96 10/25/21 07:42 10/24/21 10/25/21 10/25/21 22:59 06:59 14:59 Intake Total 290 / 770 250 / 1020 Output Total 600 / 600 Balance 290 / 770 -350 / 420 Weight last 48 hrs Weight 109 lb 11.2 oz Weight 106 lb 9 oz Weight 95 lb Physical Exam Narrative: EXAM NARRATIVE: Pain with palpation in the low back. Normal sensation light touch down both lower extremities. Wiggles all digits with 4/5 in strength. Normal station light touch in both lower extremities. Pulses are palpable. Good cap refill all digits. No palpable pain in the cervical or thoracic spine. Full range of motion both upper extremities. Hands warm good cap refill radial pulses are palpable. HENMT: COMMON NORMALS: normocephalic HEAD & SCALP: normocephalic Resp: COMMON NORMALS: normal respiratory effort Cardio: COMMON NORMALS: regular rate and regular rhythm RATE: regular rate RHYTHM: regular rhythm GI: COMMON NORMALS: Soft to palpation PALPATION: Yes Soft to palpation : COMMON NORMALS: Yes no CVA tenderness BLADDER/KIDNEY EXAM: Yes no CVA tenderness Back/Pelvis: COMMON NORMALS: no CVA tenderness Neuro: COMMON NORMALS: moves all extremities Psych: COMMON NORMALS: cooperative Data : 10/25/21 05:36 10/25/21 05:36 Micro: Microbiology 10/24/21 11:30 Legionella Urinary Antigen - Final Urine,Voided Bacterial Antigens - Final 10/23/21 12:12 Urine Culture - Preliminary Urine,Clean Catch A&P Assessment and plan (1) Closed compression fracture of L1 vertebra: Discussed with the patient treatment options involve TLSO brace versus kyphoplasty procedure. We are awaiting the MRI scan of her lumbar spine. In preparation of possible surgical intervention tomorrow we will keep her n.p.o. after midnight. Explained the risks benefits of the seizures Sara to bleeding infection nerve damage continued back pain need for surgery Romel anesthesia. She understands his risk was proceed. Status: Acute (2) Closed compression fracture of L2 vertebra: Status: Acute Attestations Medical Necessity Statement*: awaiting an MRI Coding Level of Care Code Acute Project Controls Specialist for Vanesag Fwd Diagnoses Closed compression fracture of L1 vertebra S32.010A Closed compression fracture of L2 vertebra S32.020A
[2021-10-25] MEDS: predniSONE 10 mg Tablet PO (08:03)
[2021-10-25] MEDS: bisacodyl 5 mg Tablet 10 MG PO (08:03)
[2021-10-25] MEDS: pantoprazole DR 40 mg Tablet 20 MG PO (08:03)
[2021-10-25] MEDS: methadone 10 mg Tablet 85 MG PO (09:55)
--- NOTE | 2021-10-25 10:15 | MR_ITS ---
WS: [id number] MRI LUMBAR SPINE NONCONTRAST TECHNIQUE: Sagittal T1, T2 imaging. Axial T1 and T2 imaging. Exam shortened due to patient's pain. CLINICAL INFORMATION: L1/L2 pathologic fracture COMPARISON: MRI 2016, CTA October 23 FINDINGS: Mild lumbar curve. Biconcave compression fracture of the right L1 vertebral body. Visualized fracture cleft. Findings compatible with acute compression. Mild retropulsion of the posterior superior catarino x with mild central canal stenosis. No high-grade central canal narrowing. Area of sclerosis in the r ight aspect of the L2 vertebral body demonstrates normal T1 and T2 bone marrow signal on today's exam ination. Associated compression of the right L2 superior endplate with endplate Schmorl's node. This is unchanged since October 23, 2021 CT. L1-L2: Mild disc bulging. Spinal canal and foramen are patent. Mild facet arthropathy. L2-L3: Normal. L3-L4: Mild annular bulging. Slight narrowing of the left subarticular recess. Spinal canal and ayo en are patent. L4-L5: Mild disc bulging with mild central canal stenosis. Slight impingement on the left subarticula r recess and traversing left L5 nerve root. Mild left foraminal narrowing. Right foramen is patent. M ild facet arthropathy. L5-S1: No significant disc bulging. Spinal canal and foramen are patent. Visualized pelvic bony structures: Normal. Paravertebral soft tissues: Normal. MR/MR lumbar spine wo con* [id number] IMPRESSION: Shortened examination due to patient's pain. 1. Again seen is the presumed pathologic fracture involving the right L1 verte bral body with loss of approximately 80% vertebral body height eccentric to the right. Associated fracture cleft. This is unchanged from the recent CT. Mild r etropulsion of the posterior superior cortex with mild central canal stenosis. 2. Stable compression of the right eccentric aspect of the L2 vertebral body w ith associated sclerosis as seen on the recent CT. No significant edema in this location. This is likely due to subacute to chronic compression. 3. Mild central canal stenosis L4-5 due to mild disc bulging. Impingement on t he left subarticular recess and traversing left L5 nerve root. Mild left L4-5 f oraminal narrowing.
--- NOTE | 2021-10-25 11:17 | PC.NURSE ---
Called and spoke to Dr. Tadeo's office to verify what pain meds the patient is prescribed. They stated she received 15 mg of morphine BID. Informed Dr. Tovar.
[2021-10-25] MEDS: FUROsemide 10 mg/mL SDV 2mL 20 MG IVP (11:40)
[2021-10-25] MEDS: magnesium sulfate premix 2 GM/50 ML PIGGYBACK IV (11:41)
[2021-10-25] MEDS: benzonatate 100 mg Capsule 200 MG PO (11:47)
--- NOTE | 2021-10-25 13:27 | PC.SOCIAL ---
IMM Update Pg. 2 of IMM updated and reviewed with patient over the phone who verbalized understanding.
--- NOTE | 2021-10-25 17:24 | P.PN_ITS ---
Subjective Subjective: Interval history: Patient was seen this morning, she tells me that her hemoptysis is very minimal, very scant, she tells me that she continues to have severe lower back pain, she tells me that she is not getting her home morphine, she takes 15 mg twice daily to Dr. Tadeo's office Vitals/I&O/Wt Last Vital Signs Temp 98.7 F 10/25/21 16:00 Pulse 102 H 10/25/21 16:00 Resp 18 10/25/21 16:00 BP 105/72 10/25/21 16:00 Pulse Ox 96 10/25/21 16:00 10/25/21 10/25/21 10/25/21 06:59 14:59 22:59 Intake Total 250 / 1020 530 / 530 Output Total 600 / 600 0 / 0 Balance -350 / 420 530 / 530 0 / 530 Weight last 48 hrs Weight 49.759 kg Weight 48.336 kg Physical Exam Const: COMMON NORMALS: no acute distress and patient oriented x3 ORIENTATION/CONSCIOUSNESS: Yes awake, Yes oriented to person and Yes oriented to place HENMT: COMMON NORMALS: normocephalic HEAD & SCALP: normocephalic Resp: COMMON NORMALS: normal respiratory effort, No retractions, No use of accessory muscles and clear to auscultation bilaterally AUSCULTATION: clear to auscultation bilaterally Cardio: COMMON NORMALS: regular rate, regular rhythm, S1 normal heart sound present and S2 normal heart sound present RATE: regular rate RHYTHM: regular rhythm HEART SOUNDS: S1 normal heart sound present and S2 normal heart sound present GI: COMMON NORMALS: Normal to inspection, nondistended, normoactive bowel sounds present, Soft to palpation and non-tender PALPATION: Yes Soft to palpation Extremity: COMMON NORMALS: no pedal edema Neuro: COMMON NORMALS: patient oriented x3 SENSORIUM/ORIENTATION: Yes oriented to person and Yes oriented to place Psych: COMMON NORMALS: mental status grossly normal Data : 10/25/21 05:36 10/25/21 05:36 Micro: Microbiology 10/23/21 12:12 Urine Culture - Final Urine,Clean Catch 10/24/21 11:30 Legionella Urinary Antigen - Final Urine,Voided Bacterial Antigens - Final A&P Assessment and plan (1) Hemoptysis: Status: Acute (2) Obstructive sleep apnea: Status: Acute (3) Asthma-COPD overlap syndrome: Status: Acute (4) Chronic low back pain: Status: Acute Qualifiers: Back pain laterality: unspecified Sciatica presence: unspecified whether sciatica present Qualified Code(s): M54.5 - Low back pain; G89.29 - Other chronic pain (5) Left thyroid nodule: Status: Acute (6) Hepatitis C: Status: Chronic Qualifiers: Viral hepatitis chronicity: chronic Hepatic coma status: without hepatic coma Qualified Code(s): B18.2 - Chronic viral hepatitis C (7) Closed compression fracture of L1 vertebra: Status: Acute (8) Methadone dependence: Status: Acute (9) Pneumonia: Status: Acute Additional A&P Information 56 year old female with PMH of asthma/COPD, chronic smoker, left thyroid nodule, GERD, chronic hoarseness, chronic cough, hepatitis C, chronic back pain on methadone 20 mg daily ,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 Came in today with chief complaint of worsening cough as well as hemoptysis, going on for the last few days, she says that the amount of hemoptysis is close to half a cup, She is also complaining of shortness of breath with exertion. She was also complaining of lower abdominal achy pain, as well as intermittent groin pittman. Patient denies any fever, chest pain, palpitation, nausea vomiting. # Hemoptysis: Likely secondary to fibrotic lung lesion in the right upper lobe: hgb 11 Currently H&H is stable. Continue to monitor hemoglobin. if persist will consider discussing with pulmonary #Possible pneumonia: Patient is complaining of worsening shortness of breath cough with hemoptysis, she was on levofloxacin as an outpatient. CT chest is more in line with: Chronic changes associated with radiation therapy. Follow urine Legionella antigen bacterial antigen panel, procalcitonin negative r on ceftriaxone and azithromycin for now. # Asthma COPD overlap syndrome:Not in exacerbation Albuterol inhaler as needed Continue prednisone 10 mg p.o. daily her home medication Antibiotics as above #hepatic mets : Increased 1.2 x 1.1 cm low-density in the medial segment left liver, just anterior superior to the gallbladder fossa which could represent hepatic metastasis versus other lesion. #Interval appearance of pathologic 80% compression fracture involving the right portion of the L1 vertebral body with 5 mm retropulsion bone posteriorly into the spinal canal with borderline to mild central spinal stenosis -mri spine -consult Dr. looney #CODE STATUS: Full code #DVT prophylaxis on SCD Attestations Medical Necessity Statement*: Patient requires hospitalization due to back pain, concerning for metastatic disease, with hemoptysis Coding Level of Care Code Acute Enrollment Management Manager for Chg Fwd Diagnoses Hemoptysis R04.2 Obstructive sleep apnea G47.33 Asthma-COPD overlap syndrome J44.9 Chronic low back pain M54.5; G89.29 Back pain laterality: unspecified Sciatica presence: unspecified whether sciatica present Left thyroid nodule E04.1 Hepatitis C B18.2 Viral hepatitis chronicity: chronic Hepatic coma status: without hepatic coma Closed compression fracture of L1 vertebra S32.010A Methadone dependence F11.20 Pneumonia J18.9
[2021-10-25] MEDS: LORazepam 0.5 mg Tablet PO (17:27)
[2021-10-25] MEDS: cefTRIAXone 1,000 MG in sodium chloride 0.9% (plus) 50 ML 100 MG IV (21:55)
[2021-10-25] MEDS: mirtazapine 15 mg Tablet PO (21:55)
[2021-10-25] MEDS: azithromycin 500 MG in sodium chloride 0.9% 250 ML 250 MG IV (22:29)
[2021-10-26] VITALS (17 sets, daily range): BP systolic 91–120; BP diastolic 58–89; PULSE 71–104; RESP 16–20; TEMP 36.2–37.2; O2SAT 92–100
--- NOTE | 2021-10-26 | SCC_ITS ---
Procedure Done: 1. L1 Kyphoplasty 2. L1 spine metastasis radiofrequency ablation () 3. L2 kyphoplasty 4. L2 spine metastasis radiofrequency ablation () 225.5 seconds of fluoroscopic guidance, for a cumulative dose of 21.01 mGy and 16.76 mGy , was provided to Dr. Stewart by the radiology department. C-arm images of the lumbar spine were saved for the patient's permanent record. [facility]
[2021-10-26 07:04] LABS: Basophils # 0.1 10^3/uL (0.0-0.1); Basophils % 0.7 %; Eosinophils # 0.1 10^3/uL (0.0-0.8); Hematocrit 34.5 % (37.0-47.0); Hemoglobin 11.1 g/dL (11.5-15.3); Lymphocytes # 0.5 10^3/uL (0.8-4.8); Lymphocytes % 5.7 %; Mean Corpuscular HGB Conc 32.2 g/dL (30.0-36.0); Mean Corpuscular Hemoglobin 31.9 pg (28.0-34.0); Mean Corpuscular Volume 99.1 fl (81-99); Mean Platelet Volume 8.9 fL (7.4-10.4); Monocytes # 0.7 10^3/uL (0.2-0.9); Monocytes % 7.5 %; Neutrophils # 7.29 10^3/uL (1.8-7.7); Neutrophils % 79.7 %; Nucleated Red Blood Cells % 0.2 %; Platelet Count 387 10^3/cmm (130-400); Red Blood Count 3.48 10^6/uL (4.1-5.3); Red Cell Distribution Width 12.8 % (12.1-15.1); White Blood Count 9.1 10^3/uL (4.0-10.0)
[2021-10-26 07:18] LABS: INR 0.95 (0.8-1.2)
--- NOTE | 2021-10-26 07:19 | PC.NURSE ---
Patient gone to surgery when I went to round and meet her at this time.
[2021-10-26] MEDS: sodium chloride 0.9% 1,000 ML 30 ML IV (07:27)
[2021-10-26] MEDS: HYDROmorphone 1 mg/mL INJ 1 mL 0.5 MG IVP (07:28)
[2021-10-26 07:41] LABS: NT Pro B Type Natriuretic Pept 408 pg/mL (0-125); Procalcitonin 0.12 ng/mL (0-0.5)
--- NOTE | 2021-10-26 07:46 | ANES.PREANE2 ---
Pre-Anesthetic Assessment Pre-Anesthetic Assessment: Height/Weight: Height 1.6 m Weight 49.759 kg Temp Pulse Resp BP Pulse Ox 98.9 F 104 H 18 101/71 97 10/26/21 07:14 10/26/21 07:14 10/26/21 07:28 10/26/21 07:14 10/26/21 07:14 Preop Diagnosis: lung cancer Proposed Procedure: Operation Date: 10/26/21 08:20 Proposed Procedures p Kyphoplasty L1,L2(Not Applicable) - Chris Stewart DO Was Beta Otilia taken within 24 hours: N/A Was Clonidine taken within 24 hours: N/A Social: Social History: Tobacco and No alcohol Exam: Pre-Anes Outpt Exam: alert, oriented x 3 and regular rate & rhythm Additional Exam Findings (including area of procedure): rhonchi Airway: Submandibular: WNL Cervical ROM: WNL MP: 2 Dentition: Chipped Additional comments: Very poor dentition, missing most Pulmonary: Pulmonary: Asthma, COPD and Sleep apnea Comments: Lung CA, hemoptysis Hepatic: Hepatic: Hepatitis (C) Musc/skel: Musc/skel: Lower Back Pain Comments: Chronic pain--methadone Neuropsych: Neuropsych: Anxiety and Depression Anesthetic Plan: ASA status: 3 Risk of > 500 ml blood loss (7ml/kg in children): No Meds/Allergies Current Medications: Current Medications Generic Name Dose Route Start Last Admin Trade Name Freq PRN Reason Stop Dose Admin Acetaminophen 650 mg 10/23/21 17:44 10/24/21 05:33 Acetaminophen 32 5 Mg Tablet PO 650 mg Q6H PRN Administration Mild/Mod Pain Or Temp >/= 101 Benzonatate 200 mg 10/24/21 11:03 10/25/21 11:47 Benzonatate 100 Mg Capsule PO 200 mg TID PRN Administration COUGH Bisacodyl 10 mg 10/23/21 17:44 10/25/21 08:03 Bisacodyl 5 Mg T ablet PO 10 mg DAILY PRN Administration Constipation (see protocol) Protocol Hydromorphone HCl 0.5 mg 10/26/21 07:14 10/26/21 07:28 Hydromorphone 1 Mg/Ml Inj 1 Ml IVP 0.5 mg ONCE PRN Administration ANESTHESIA Ceftriaxone Sodium 1,000 mg/ 50 mls @ 100 mls/ hr 10/23/21 18:00 10/25/21 22:47 Sodium Chloride IV Infused Q24H TANVI Infusion Protocol Azithromycin 500 m g/ Sodium 250 mls @ 250 mls /hr 10/23/21 18:00 10/25/21 23:30 Chloride IV Infused Q24H TANVI Infusion Protocol Sodium Chloride 1,000 mls @ 30 ml s/hr 10/26/21 07:30 10/26/21 07:27 Sodium Chloride 0.9% IV 30 mls/hr .Q24H TANVI Administration Lorazepam 0.5 mg 10/24/21 09:14 10/25/21 17:27 Lorazepam 0.5 Mg Tablet PO 0.5 mg DAILY PRN Administration Nausea Methadone HCl 85 mg 10/25/21 10:00 10/25/21 09:55 Methadone 10 Mg Tablet PO 85 mg Q24H TANVI Administration Mirtazapine 15 mg 10/23/21 21:00 10/25/21 21:55 Mirtazapine 15 M g Tablet PO 15 mg BEDTIME TANVI Administration Pantoprazole Sodiu m 20 mg 10/24/21 09:00 10/25/21 08:[address] 40 Mg Tablet PO 20 mg DAILY TANVI Administration Prednisone 10 mg 10/24/21 09:00 10/25/21 08:03 Prednisone 10 Mg Tablet PO 10 mg DAILY TANVI Administration Fluticasone/Salmet olvin 1 puff 10/23/21 18:00 10/26/21 07:12 Fluticasone-Salm eterol 250-50 Disk us INHALATION Not Given BID TANVI PFSH Anesthesia PFSH: Medical History Anxiety and depression Chronic low back pain Gastroesophageal reflux disease with ulceration Hepatitis C Microscopic hematuria Surgical History H/O section H/O: hysterectomy Family History Other CAD (coronary artery disease) Cancer Diabetes Social History Smoking and tobacco status: current every day smoker cigarettes Years cigarettes smoked: 40 Quit status (tobacco): considering quitting Second hand smoke exposure: Yes Smoking risk assessment/counseling performed?: Yes Alcohol intake: former Former alcohol use details: 25 years Lives independently: Yes Household members: spouse Housing: House Marital status: Life Partner service: No Current occupational status: disabled Pets and animals: Yes History of recent travel: No Current gender identity: Female Special elida needs: No Data Anesthesia CBC & Chem 7: 10/25/21 05:36 10/25/21 05:36 Other Labs: Laboratory Results - last 48 hr 10/25/21 10/25/21 10/25/21 05:36 05:36 05:36 WBC 9.7 RBC 3.48 L Hgb 11.0 L Hct 33.8 L MCV 97.1 MCH 31.6 MCHC 32.5 RDW 12.7 Plt Count 290 MPV 9.3 Neut % (Auto) 82.6 Lymph % (Auto) 6.5 [place] % (Auto) 7.0 Eos % (Auto) 1.2 Baso % (Auto) 0.4 Neut # (Auto) 7.97 H Lymph # (Auto) 0.6 L [place] # (Auto) 0.7 Eos # (Auto) 0.1 Baso # (Auto) 0.0 Nucleated RBC % (auto) 0 Nucleated RBCs # 0.0 PT INR Sodium 139 Potassium 4.1 Chloride 97 L Carbon Dioxide 29 Anion Gap 17.1 BUN 9 Creatinine 0.6 GFR Calculation 102.7 Glucose 57 L Calculated Osmolality 284 L Calcium 8.6 Phosphorus Magnesium 1.5 L C-Reactive Protein 87.2 H NT-Pro-B Natriuret Pep Procalcitonin 10/25/21 10/26/21 10/26/21 05:36 06:28 06:28 WBC RBC Hgb Hct MCV MCH MCHC RDW Plt Count MPV Neut % (Auto) Lymph % (Auto) [place] % (Auto) Eos % (Auto) Baso % (Auto) Neut # (Auto) Lymph # (Auto) [place] # (Auto) Eos # (Auto) Baso # (Auto) Nucleated RBC % (auto) Nucleated RBCs # PT INR Sodium Potassium Chloride Carbon Dioxide Anion Gap BUN Creatinine GFR Calculation Glucose Calculated Osmolality Calcium Phosphorus Magnesium Cancelled C-Reactive Protein Cancelled NT-Pro-B Natriuret Pep 1227 H 408 H Procalcitonin 0.11 0.12 10/26/21 10/26/21 10/26/21 06:28 06:28 06:28 WBC RBC Hgb Hct MCV MCH MCHC RDW Plt Count MPV Neut % (Auto) Lymph % (Auto) [place] % (Auto) Eos % (Auto) Baso % (Auto) Neut # (Auto) Lymph # (Auto) [place] # (Auto) Eos # (Auto) Baso # (Auto) Nucleated RBC % (auto) Nucleated RBCs # PT 12.90 INR 0.95 Sodium Potassium Chloride Carbon Dioxide Anion Gap BUN Creatinine GFR Calculation Glucose Calculated Osmolality Calcium Phosphorus Cancelled Magnesium C-Reactive Protein NT-Pro-B Natriuret Pep Cancelled Procalcitonin Cancelled Micro: Microbiology 10/23/21 12:12 Urine Culture - Final Urine,Clean Catch Cardiac Studies: No Data to Display
[2021-10-26 07:52] LABS: Anion Gap 15.5 (5-19); Blood Urea Nitrogen 15 mg/dL (6-20); C Reactive Protein 74.5 mg/L (0.0-4.9); Calcium 8.6 mg/dL (8.5-10.5); Carbon Dioxide 29 mmol/L (22-29); Chloride 97 mmol/L (98-107); Creatinine Clr Calc Pharmacy 62.1293; Glomerular Filtration Rate 73.7 mL/min (90-130); Glucose 74 mg/dL (65-115); Magnesium 1.8 mg/dL (1.7-2.3); Osmolality Calculated 285 mOsm/kg (285-295); Phosphorus 3.6 mg/dL (2.5-4.5); Potassium 3.5 mmol/L (3.5-5.1); Sodium 138 mmol/L (136-145)
[2021-10-26 08:22] LABS: Slide Review Slide Review Perform
--- NOTE | 2021-10-26 08:31 | W.PM.OPSUD ---
Surgery/Procedure H&P Update DATE OF PROCEDURE: October 26, 2021 DATE H&P PERFORMED: 10/24/21 H&P UPDATE INFORMATION: I have reviewed H&P completed within last 30 days, I have examined patient prior to procedure and No changes to prior documentation PREOP DIAGNOSIS: lung cancer PLANNED PROCEDURE: Operation Date: 10/26/21 08:20 Proposed Procedures p Kyphoplasty L1,L2(Not Applicable) - Chris Stewart DO
--- NOTE | 2021-10-26 08:39 | SC_ITS ---
WS: [id number] C-arm fluoroscopy for lumbar kyphoplasty, 10/26/2021 Clinical Data: SURGICAL PROCEDURE Comparison: None. Findings: Dr. Stewart inserted kyphoplasty material into the L1 and L2 vertebral bodies. SC/C-arm FL for Kyphoplasty Impression: Lumbar kyphoplasty.
[2021-10-26] MEDS: iohexol 300 mg/mL 50 mL Btl (OR ONLY) XX ×2 (09:42→10:28)
--- NOTE | 2021-10-26 10:27 | PC.CHAP ---
Pastoral Care Encounter/Spiritual Assessment Type of Contact [] Declined boot repairer visit [] Patient/Family/Request visit [] Outpatient visit [] Follow-up visit [] Physician referral [] Code/Alert [x] Routine visit [] Staff referral [] Actively dying [] Patient sleeping [] Family support [] [x] Out of room [] Palliative care [] [] Receiving care in room [] Pre-surgical visit [] Trauma [] Long length of stay [] ICU visit [] Other: Relational/Emotional Strength [] Patient feels connected with others/family/visitors/staff [] Distress [] Loneliness/isolation [] Abandonment Spirituality of Patient [] Person of Caro [] Attends Anglican of their Caro [] Believes in Prayer [] Reads Bible or Buddhist materials [] There are Spiritual issues to be addressed Associate Data Scientist Interventions [] Prayer [] Active listening [] Non-anxious presence [] Spiritual/emotional support [] Crisis/trauma care [] Spiritual counseling [] Bereavement support [] Provided bereavement packet [] Provided Bible/devotional materials [] Provided toy/stuffed animal, coloring book to patient or family member [] Provided Communion [] Anointing/Burney [] Salvation [] Completed spiritual assessment [] Other: Impact on Illness or Injury [] Angry [] Fearful [] Anxious [] Often cries [] Exhaustion [] Unable to work [] Unable to attend caodaism [] Unable to walk/stand [] Unable to read [] Unable to drive [] Unable to eat/drink [] Unable to sleep [] Unable to be with family [] Patient intubated [] Other: Summary Time spent with patient
--- NOTE | 2021-10-26 10:30 | P.PCN_ITS ---
PACU note PACU note: VSS, Good respiratory effort, report to GARDENER FLORIST Post-Anesthesia Exam: awake
--- NOTE | 2021-10-26 10:30 | PM.PACU ---
PACU note PACU note: VSS, Good respiratory effort, report to HEAVY EQUIPMENT SERVICE MANAGER Post-Anesthesia Exam: awake
[2021-10-26] MEDS: fentaNYL 50 mcg/mL INJ 2mL IVP (10:38)
--- NOTE | 2021-10-26 10:43 | PM.OP ---
Operative Report Date of procedure: October 26, 2021 Pre-op Diagnosis: lung cancer; L1 and L2 pathologic wedge compression fracture Pre-op Diagnosis: metastatic lesions suspected Procedure Done: 1. L1 Kyphoplasty 2. L1 spine metastasis radiofrequency ablation () 3. L2 kyphoplasty 4. L2 spine metastasis radiofrequency ablation () Pathology: bx of L1 and L2 Surgeon: Chris Stewart Anesthesia: General Estimated blood loss (mL): 20 Condition: stable Disposition: PACU Procedure: 1. L1 Kyphoplasty 2. L1 spine metastasis radiofrequency ablation () 3. L2 kyphoplasty 4. L2 spine metastasis radiofrequency ablation () Patient has a history of lung cancer and I am concerned that these compression fractures are likely result of metastatic lesion from the lung cancer. These are pathologic wedge compression fractures. Patient was brought to the operative suite. After undergoing anesthesia was placed in the prone position. All areas impingement were well-padded. Patient was prepped and draped in normal sterile fashion. Under AP and lateral fluoroscopy attention was brought to the L1 level first. The awl was inserted into the pedicle on both the right and the left side. Once the tube was placed then a biopsy tube was inserted biopsy was taken and then the drill with color guide was placed to the anterior border of the L1 vertebrae. Then the osteocool radiofrequency ablation probes were inserted. Once the probes were inserted then the ablation technique took place the radiofrequency ablation lasted 7.5 minutes. Once this was completed then the balloons were inserted. Balloons were placed both on the right left side and inflated. This was done under AP and lateral fluoroscopy as well. Then cement was placed under AP and lateral fluoroscopy the cement started leaking out the right border and in the process stopped. Attention is brought to the L2 level. The awl was inserted on both the right and left side. Again the biopsy was performed and then the drills were inserted followed by the osteocool radiofrequency ablation probes. Again the ablation lasted 7.5 minutes. Balloons were then inserted on both the right and left side. And then cement was inserted under AP and lateral fluoroscopy. Tubes were then all removed AP and lateral fluoroscopy ensured that the cement was in the prone position. And patient wounds were irrigated and closed with 1 nylon stitch in each incision at the 4 sites. Sterile dressings were applied patient was transferred to the PACU in stable condition.
--- NOTE | 2021-10-26 11:00 | PC.NURSE ---
Patient arrived back to the floor at this time.
[2021-10-26 11:22] LABS: Glucose Point of Care 135 mg/dL (70-110)
[2021-10-26] MEDS: predniSONE 10 mg Tablet PO (11:29)
[2021-10-26] MEDS: morphine IR 15 mg Tablet PO (11:29)
[2021-10-26] MEDS: benzonatate 100 mg Capsule 200 MG PO (11:35)
[2021-10-26] MEDS: lactated ringers 1,000 ML 90 ML IV (11:35)
[2021-10-26] MEDS: pantoprazole DR 40 mg Tablet 20 MG PO (11:35)
[2021-10-26] MEDS: methadone 10 mg Tablet 85 MG PO (11:38)
--- NOTE | 2021-10-26 15:01 | ANE.PACU2 ---
Inpatient post-anesthesia follow up: Airway intact: Yes Vital signs: Temperature 98.7 F Pulse Rate 92 Respiratory Rate 18 Blood Pressure 103/71 Pulse Oximetry 95 Oxygen Delivery Me thod Room Air Oxygen Flow Rate 2 Fraction of Inspir ed Oxygen Hydration adequate: Yes Nausea and vomiting: No Pain level: 3 Mental status: Baseline
--- NOTE | 2021-10-26 17:03 | PM.PN ---
Subjective Subjective: Interval history: Patient was seen in postop recovery, after kyphoplasty, she continued to have pain complaints overnight, she tells that she did not get her methadone this morning, she is in a lot of pain Vitals/I&O/Wt Last Vital Signs Temp 98.4 F 10/26/21 16:00 Pulse 90 10/26/21 16:00 Resp 18 10/26/21 16:00 BP 110/67 10/26/21 16:00 Pulse Ox 92 10/26/21 16:00 10/26/21 10/26/21 10/26/21 06:59 14:59 22:59 Intake Total 250 / 1215 760 / 760 Output Total 460 / 460 5 / 5 Balance -210 / 755 755 / 755 Data : 10/26/21 06:28 10/26/21 06:28 A&P Assessment and plan (1) Hemoptysis: Status: Acute (2) Obstructive sleep apnea: Status: Acute (3) Asthma-COPD overlap syndrome: Status: Acute (4) Chronic low back pain: Status: Acute Qualifiers: Back pain laterality: unspecified Sciatica presence: unspecified whether sciatica present Qualified Code(s): M54.5 - Low back pain; G89.29 - Other chronic pain (5) Left thyroid nodule: Status: Acute (6) Hepatitis C: Status: Chronic Qualifiers: Viral hepatitis chronicity: chronic Hepatic coma status: without hepatic coma Qualified Code(s): B18.2 - Chronic viral hepatitis C (7) Closed compression fracture of L1 vertebra: Status: Acute (8) Methadone dependence: Status: Acute (9) Pneumonia: Status: Acute Additional A&P Information 56 year old female with PMH of asthma/COPD, chronic smoker, left thyroid nodule, GERD, chronic hoarseness, chronic cough, hepatitis C, chronic back pain on methadone 20 mg daily ,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 Came in today with chief complaint of worsening cough as well as hemoptysis, going on for the last few days, she says that the amount of hemoptysis is close to half a cup, She is also complaining of shortness of breath with exertion. She was also complaining of lower abdominal achy pain, as well as intermittent groin pittman. Patient denies any fever, chest pain, palpitation, nausea vomiting. # Hemoptysis: Likely secondary to fibrotic lung lesion in the right upper lobe: hgb 11.1 Currently H&H is stable. Continue to monitor hemoglobin. if persist will consider discussing with pulmonary #Possible pneumonia: Patient is complaining of worsening shortness of breath cough with hemoptysis, she was on levofloxacin as an outpatient. CT chest is more in line with: Chronic changes associated with radiation therapy. Follow urine Legionella antigen bacterial antigen panel, procalcitonin negative is on ceftriaxone and azithromycin for now. # Asthma COPD overlap syndrome:Not in exacerbation Albuterol inhaler as needed Continue prednisone 10 mg p.o. daily her home medication Antibiotics as above #hepatic mets : Increased 1.2 x 1.1 cm low-density in the medial segment left liver, just anterior superior to the gallbladder fossa which could represent hepatic metastasis versus other lesion. #Interval appearance of pathologic 80% compression fracture involving the right portion of the L1 vertebral body with 5 mm retropulsion bone posteriorly into the spinal canal with borderline to mild central spinal stenosis -mri spine 1. Again seen is the presumed pathologic fracture involving the right L1 vertebral body with loss of approximately 80% vertebral body height eccentric to the right. Associated fracture cleft. This is unchanged from the recent CT. Mild retropulsion of the posterior superior cortex with mild central canal stenosis. 2. Stable compression of the right eccentric aspect of the L2 vertebral body with associated sclerosis as seen on the recent CT. No significant edema in this location. This is likely due to subacute to chronic compression. 3. Mild central canal stenosis L4-5 due to mild disc bulging. Impingement on the left subarticular recess and traversing left L5 nerve root. Mild left L4-5 foraminal narrowing. -We will have kyphoplasty today -consult Dr. 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
--- NOTE | 2021-10-26 19:10 | PC.NURSE ---
Report to Jasmeet LUO at this time.
[2021-10-26] MEDS: mirtazapine 15 mg Tablet PO (20:31)
[2021-10-26] MEDS: cefTRIAXone 1,000 MG in sodium chloride 0.9% (plus) 50 ML 100 MG IV (22:24)
[2021-10-26] MEDS: azithromycin 500 MG in sodium chloride 0.9% 250 ML 250 MG IV (23:21)
[2021-10-27] VITALS (7 sets, daily range): BP systolic 105–151; BP diastolic 79–82; PULSE 84–96; RESP 14–18; TEMP 36.6–37.4; O2SAT 95–98
[2021-10-27 06:35] LABS: Basophils % 0.3 %; Eosinophils % 0.3 %; Hematocrit 32.4 % (37.0-47.0); Hemoglobin 10.4 g/dL (11.5-15.3); Lymphocytes # 0.7 10^3/uL (0.8-4.8); Lymphocytes % 6.3 %; Mean Corpuscular HGB Conc 32.1 g/dL (30.0-36.0); Mean Corpuscular Hemoglobin 31.7 pg (28.0-34.0); Mean Corpuscular Volume 98.8 fl (81-99); Mean Platelet Volume 8.9 fL (7.4-10.4); Monocytes # 0.7 10^3/uL (0.2-0.9); Monocytes % 6.4 %; Neutrophils # 8.78 10^3/uL (1.8-7.7); Neutrophils % 83.2 %; Nucleated Red Blood Cells % 0 %; Platelet Count 292 10^3/cmm (130-400); Red Blood Count 3.28 10^6/uL (4.1-5.3); Red Cell Distribution Width 12.7 % (12.1-15.1); White Blood Count 10.6 10^3/uL (4.0-10.0)
[2021-10-27 07:00] LABS: Alanine Aminotransferase 13 U/L (0-33); Alkaline Phosphatase 115 IU/L (35-105); Anion Gap 17.4 (5-19); Aspartate Amino Transferase 12 U/L (0-32); Blood Urea Nitrogen 14 mg/dL (6-20); Calcium 8.1 mg/dL (8.5-10.5); Carbon Dioxide 24 mmol/L (22-29); Chloride 101 mmol/L (98-107); Globulin 3.2 g/dL (1.3-4.6); Glomerular Filtration Rate 102.7 mL/min (90-130); Glucose 77 mg/dL (65-115); Osmolality Calculated 285 mOsm/kg (285-295); Potassium 4.4 mmol/L (3.5-5.1); Sodium 138 mmol/L (136-145); Total Bilirubin 0.2 mg/dL (0.15-1.2); Total Protein 6.2 g/dL (6.6-8.7)
[2021-10-27 07:05] LABS: C Reactive Protein 55.5 mg/L (0.0-4.9); Magnesium 1.7 mg/dL (1.7-2.3); NT Pro B Type Natriuretic Pept 509 pg/mL (0-125)
[2021-10-27 07:17] LABS: Phosphorus 2.4 mg/dL (2.5-4.5)
--- NOTE | 2021-10-27 07:54 | P.PN_ITS ---
Subjective Subjective: Interval history: POD 1 Patient reports back pain is significantly improved. Denies any headaches, chest pain, shortness of breath. Vitals/I&O/Wt Last Vital Signs Temp 98.3 F 10/27/21 04:00 Pulse 84 10/27/21 04:00 Resp 18 10/27/21 04:00 BP 151/81 10/27/21 04:00 Pulse Ox 95 10/27/21 04:00 10/26/21 10/27/21 10/27/21 22:59 06:59 14:59 Intake Total 1942.5 / 2702.5 360 / 3062.5 Output Total 350 / 355 1200 / 1555 Balance 1592.5 / 2347.5 -840 / 1507.5 Physical Exam Narrative: EXAM NARRATIVE: Patient presents alert and oriented x3 with a good general appearance normal normal affect. Normal coordination normal stability. Mild tenderness around the incisional site with the incision appear to be healing nicely. No signs of erythema or drainage. No signs of infection. Patient denies any fevers or chills. 5/5 motor strength both lower extremities with negative straight leg raise bilaterally. Calves are supple no medial thigh tenderness. Pulses are 2+ at the dorsalis pedis and posterior tibial region. Good capillary refill throughout normal sensation light touch both lower extremities. Data : 10/27/21 05:54 10/27/21 05:54 A&P Assessment and plan (1) Closed compression fracture of L1 vertebra: Encourage her to continue walking program. Be cautious with bending lifting or twisting activities. We will see her back in 1 to 2 weeks for suture removal. Status: Acute Attestations Medical Necessity Statement*: DC when medically stable Coding Level of Care Code Acute Software Developer Intern for [facility] Fwd Diagnoses Closed compression fracture of L1 vertebra S32.010A
[2021-10-27] MEDS: benzonatate 100 mg Capsule 200 MG PO (08:19)
[2021-10-27] MEDS: morphine IR 15 mg Tablet PO (08:19)
[2021-10-27] MEDS: pantoprazole DR 40 mg Tablet 20 MG PO (08:19)
[2021-10-27] MEDS: predniSONE 10 mg Tablet PO (08:20)
--- NOTE | 2021-10-27 09:15 | P.DS_ITS ---
Discharge Providers Date of Admission: 10/24/21 17:56 Date of Discharge: October 27, 2021 Attending Provider at Admission: Luis Angel Young MD Attending Provider at Discharge: Joseluis Tovar MD Diagnoses at Discharge Discharge Diagnosis (1) Closed compression fracture of L1 vertebra: Status: Acute Reason for Visit Reason for Visit: coughing up blood, cancer pt, back pain Hospital Course Hospital Course Caridad Thakkar is a 56 year old female with PMH of asthma/COPD, chronic smoker, left thyroid nodule, GERD, chronic hoarseness, chronic cough, hepatitis C, chronic back pain on methadone 20 mg daily ,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 Patient was discharged with Kizzy Cordero with close follow-up with Dr. Tadeo, if she continues to have hemoptysis she was advised to come back to emergency room During hospitalization, CT of the chest showed possible pneumonia, given her worsening shortness of hemoptysis she was treated with antibiotic therapy, discharged on 5 remaining days of doxycycline During hospitalization, she had complaints of severe lower back pain, no loss of strength, no paresthesias, no falls CT imaging showed interval appearance of pathologic 80% compression fracture involving the right portion of the L1 vertebral body with 5 mm retropulsion bone posteriorly into the spinal canal with borderline to mild central spinal stenosis -mri spine 1. Again seen is the presumed pathologic fracture involving the right L1 vertebral body with loss of approximately 80% vertebral body height eccentric to the right. Associated fracture cleft. This is unchanged from the recent CT. Mild retropulsion of the posterior superior cortex with mild central canal stenosis. 2. Stable compression of the right eccentric aspect of the L2 vertebral body with associated sclerosis as seen on the recent CT. No significant edema in this location. This is likely due to subacute to chronic compression. 3. Mild central canal stenosis L4-5 due to mild disc bulging. Impingement on the left subarticular recess and traversing left L5 nerve root. Mild left L4-5 foraminal narrowing. -Dr. Stewart was consulted -She underwent -1. L1 Kyphoplasty 2. L1 spine metastasis radiofrequency ablation () 3. L2 kyphoplasty 4. L2 spine metastasis radiofrequency ablation () Pathology: bx of L1 and L2 Surgeon: Chris Stewart -She did well postop, discharged home, advised to remain ambulatory due to risk of DVTs and pulmonary emboli given her hypercoagulable state -Follow-up with Dr. Tadeo for pathology -Follow-up with Dr. Stewart -For pain control, her home morphine frequency was increased, to 15 mg every 8 hours for 3 days. She was advised to let Dr. Tadeo office know, let the methadone clinic know Physical Exam Const: COMMON NORMALS: no acute distress and patient oriented x3 Resp: COMMON NORMALS: normal respiratory effort, No retractions, No use of accessory muscles and clear to auscultation bilaterally AUSCULTATION: clear to auscultation bilaterally Cardio: COMMON NORMALS: regular rate, regular rhythm, S1 normal heart sound present and S2 normal heart sound present RATE: regular rate RHYTHM: regular rhythm HEART SOUNDS: S1 normal heart sound present and S2 normal heart sound present GI: COMMON NORMALS: Normal to inspection, nondistended, normoactive bowel sounds present, Soft to palpation and non-tender PALPATION: Yes Soft to palpation Back/Pelvis: OTHER: Surgical site looks clean and dry Extremity: COMMON NORMALS: no pedal edema Neuro: COMMON NORMALS: patient oriented x3 Psych: COMMON NORMALS: mental status grossly normal Discharge Data Data Completed and Pending: Completed Studies During Hospitalization Category Date Time Status CT angio chest w abd pel w con Urge nt Cat Scan 10/23/21 11:17 Completed XR chest 1V fariba ble [id number] Urgent Exams 10/23/21 10:48 Completed MR lumbar spine w o con* [id number] Routi ne MRI 10/25/21 10:15 Completed Pending at discharge Category Date Time Status Complete Blood Co unt w/Auto AM LABS Lab 10/29/21 04:00 Ordered Complete Blood Co unt w/Auto AM LABS Lab 10/28/21 04:00 Ordered Comprehensive Met abolic Panel AM LA BS Lab 10/29/21 04:00 Ordered Comprehensive Met abolic Panel AM LA BS Lab 10/28/21 04:00 Ordered Phosphorus AM LAB S Lab 10/28/21 04:00 Ordered Pathology: Surgic al [PTH] Routine Pth 10/26/21 10:30 Received Labs from last 24 hours 10/27/21 10/27/21 10/27/21 05:54 05:54 05:54 WBC 10.6 H RBC 3.28 L Hgb 10.4 L Hct 32.4 L MCV 98.8 MCH 31.7 MCHC 32.1 RDW 12.7 Plt Count 292 MPV 8.9 Neut % (Auto) 83.2 Lymph % (Auto) 6.3 Smyth % (Auto) 6.4 Eos % (Auto) 0.3 Baso % (Auto) 0.3 Neut # (Auto) 8.78 H Lymph # (Auto) 0.7 L Smyth # (Auto) 0.7 Eos # (Auto) 0.0 Baso # (Auto) 0.0 Nucleated RBC % (a uto) 0 Nucleated RBCs # 0.0 Sodium 138 Potassium 4.4 Chloride 101 Carbon Dioxide 24 Anion Gap 17.4 BUN 14 Creatinine 0.6 GFR Calculation 102.7 Glucose 77 POC Glucose Calculated Osmolal ity 285 Calcium 8.1 L Phosphorus 2.4 L Magnesium Total Bilirubin 0.2 AST 12 ALT 13 Alkaline Phosphata se 115 H C-Reactive Protein NT-Pro-B Natriuret Pep Total Protein 6.2 L Albumin 3.0 L Globulin 3.2 Procalcitonin 10/27/21 10/27/21 10/26/21 05:54 05:54 11:04 WBC RBC Hgb Hct MCV MCH MCHC RDW Plt Count MPV Neut % (Auto) Lymph % (Auto) Smyth % (Auto) Eos % (Auto) Baso % (Auto) Neut # (Auto) Lymph # (Auto) Smyth # (Auto) Eos # (Auto) Baso # (Auto) Nucleated RBC % (a uto) Nucleated RBCs # Sodium Potassium Chloride Carbon Dioxide Anion Gap BUN Creatinine GFR Calculation Glucose POC Glucose 135 H Calculated Osmolal ity Calcium Phosphorus Magnesium 1.7 Total Bilirubin AST ALT Alkaline Phosphata se C-Reactive Protein 55.5 H NT-Pro-B Natriuret Pep 509 H Total Protein Albumin Globulin Procalcitonin 0.10 Vitals: Last Vital Signs Temp 99.3 F 10/27/21 07:51 Pulse 96 10/27/21 08:15 Resp 18 10/27/21 08:19 BP 112/82 10/27/21 07:51 Pulse Ox 97 10/27/21 08:15 Discharge Plan Discharge Patient Disposition: Home Condition: Stable Prescriptions: New morphine 15 mg Tablet 15 mg PO Q8H PRN (Reason: Severe Pain) 3 Days Qty: 9 RF: 0 benzonatate 100 mg Capsule 100 mg PO TID PRN (Reason: Cough) 15 Days Qty: 45 RF: 0 doxycycline hyclate 100 mg tablet 100 mg PO BID 5 Days Qty: 10 RF: 0 Narcan 4 mg/actuation spray,non-aerosol 4 mg intranasal Q2M PRN (Reason: opioid overdose) Qty: 2 RF: 0 docusate sodium 100 mg Capsule 100 mg PO BID 30 Days Qty: 60 RF: 0 Continued diphenhydramine HCl [Benadryl Allergy] 25 mg tablet 25 mg PO QID PRN (Reason: Allergy Symptoms) RF: 0 Zyrtec 10 mg capsule 10 mg PO DAILY RF: 0 omeprazole 20 mg capsule,delayed release(DR/EC) 20 mg PO DAILY RF: 0 albuterol sulfate [Ventolin HFA] 90 mcg/actuation HFA aerosol inhaler 1 puff INHALATION QID PRN (Reason: shortness of breath or wheezing) Qty: 8.5 RF: 5 methadone 40 mg tablet,soluble 90 mg PO DAILY RF: 0 ipratropium-albuterol 0.5 mg-3 mg(2.5 mg base)/3 mL solution for nebulization 3 ml inhalation Q4H PRN (Reason: wheezing) Qty: 180 RF: 3 budesonide-formoterol [Symbicort] 160-4.5 mcg/actuation HFA aerosol inhaler 2 puff inhalation BID Qty: 30.6 RF: 3 prednisone 10 mg tablet 10 mg PO DAILY RF: 0 lorazepam 0.5 mg tablet 0.5 mg PO DAILY PRN (Reason: Nausea) RF: 0 mirtazapine 30 mg tablet 15 mg PO BEDTIME RF: 0 Discontinued levofloxacin 500 mg tablet 500 mg PO DAILY RF: 0 Discharge Orders: Discharge Order (Routine); Ordered 10/27/21 Ordered By: Joseluis Tovar Referrals: Chrsi Stewart DO [Physician] - 1 week Sean Tadeo MD [Hospitalist] - 1 week Discharge Diet: Cardiac Discharge Activity: Resume usual activity Patient Instructions: Opioid Safety Activity Restrictions/Additional Instructions: Thank you for [facility] for your care! The following is a list of instructions, from your provider, to follow upon your discharge to ensure you have the optimal recovery from your recent injury orsurgery. Follow-up care is a salas part of your treatment and safety. Be sure to make and go to all appointments, and call your doctor if you are having problems. If you do not already have a follow-up appointment made, call Dr. Stewart office in the next 1-3 days to make follow up appointment for 2 weeks at [phone]. It is also a good idea to know your test results and keep a list of the medicines you take. Medications will be prescribed for you at your provider's discretion. These medications are to be used as instructed; if they are taken more often that prescribed they will not be refilled early and in most cases will not be refilled at all. > When a refill is needed,you should contact aaron irene 2-3 business days before your prescription runs out. Medications will NOT be refilled by marketing automation specialist providers after hours! > Many pain medications contain Tylenol (Acetaminophen). Do not consume more than 4,000 mg of Tylenol per day in total with any combination ofmedications. > Pain medications can cause constipation. Please use an over the counter stool softener as directed, while taking pain medications. Consulty our local pharmacist with questions or recommendations on stool softeners. If constipation persists, contact our office or your primary care provider. > While under our care,you are not to receive pain medications or other controlled substances from any other provider unless our office is notified and approves. Any attempts to do so will result in refusal to prescribe any further pain medications and possible dismissal from our practice. ? Your wound and/or dressing should remain clean and dry for 2 days after surgery. On postoperative day 2 (48 hours after your surgery) the dressing (if present) should be removed and it is okay to shower and get the incision wet. Pad dry afterwards. No further dressing should be required from that point on. Do not put any creams or ointments on theincision > It is normal for there to be a small amount of discharge (bloody or blood tinged) present from a surgical wound for the first 1-3days. > The wound should be examined twice a day for signs of infection. Mild redness or bruising is to be expected but indications that an infection maybe starting would include; An increase in redness, swelling, or discharge, a foul odor present around the incision, and/or a fever greater than 101 ?F ? Showering is permitted, however we ask that you do not take a bath, sit in a whirlpool / Jacuzzi, or go swimming for 1 month. For only the first 2 days after surgery, lt wilt be necessary for you to cover your wound/dressing with plastic and tape to keep it dry. ? Walking is essential for the healing process after surgery. We would like you to slowly advance your walking. This should be done on relatively flat clear ground (inside or out) or can be done on a treadmill. Remember this goal does not have to happen all at once, slowly increase your distance and duration. This can be broken into more more than one walk per day as tolerated. Patients who walk as directed after surgery rarely require Physical Therapy. In the unlikely event this issue arises your provider will direct hospital staff to make the appropriate arrangements. ? No lifting over 5 pounds {a gallon of milk) or bending/twisting until further notice. Each of these activities places an unnecessary amount of stress onto the body and can impede the delicate healing process. > Instead of bending at the waist, keep your back straight and bend at the knees. > Instead of twisting your torso, keep your back straight and turn your entire body with your feet. ? You may sleep in any position which makes you comfortable. Many patients find comfort sleeping in a reclining chair. It is not abnormal to have difficulty sleeping for the first several weeks following your surgery. We recommend trying Benadry! or Tylenol PM as directed to help with your sleeping difficulties. Both medications are over the counter and available withoutprescription. ? NO SMOKING!!! Smoking dramatically increases the probability of developing postoperative wound infections. ? Common complaints after lumbar and/or thoracic spine surgery include, but are not limited to: numbness and/or tingling in the legs, pain around the incision and surrounding tissues, muscle spasms, or stiffness of the middle to low back. Contact our office if these symptoms persist or if an acute change occurs. ? No driving for the first 3-5days, and not while taking narcotics [] until seen at your follow-up appointment and cleared. There are no restrictions for riding on short trips, however if you take a longer trip, arrangements s hould be made to make regular stops to get out of the vehicle and stretch . ? Swelling is an unfortunate event that will take place with any surgery and is the primary source of your postoperative discomfort. While walking and regular approved activities helps control inflammation, there are additional steps you can take to minimizeswelling. > Place ice over the surgical site and surrounding tissue for twenty minutes, followed by applying a low/medium heat (heating pad) for an additional twenty minutes every 1-2 hours as needed for painrelief. > You may use of over the counter anti-inflammatory medications (Ibuprofen, Motrin, Aleve, Advil, etc) as directed on the package label. These types of medicines wm significantly reduce the amount of discomfort you experience after surgery from swelling. It should be noted that if you have and allergy to any of these medications, or a history of ulcers or kidney disease you should consult you primary care provider prior to starting these medications. -Please remain mobile after your back surgery, due to increased risk of DVT and pulmonary emboli -Monitor for bloody cough if so go to the emergency room -I have prescribed you a short supply of morphine 15 mg p.o. every 8 hours for acute on chronic back pain given your recent kyphoplasty, please do not drive or operate heavy machinery while taking the medication, use it sparingly, do not mix with any home morphine, do not mix with any home methadone - Discharge Attestations Time Spent in Discharge Care*: less than 30 min Quality Metrics Clinical Quality Measures During this hospital stay, did patient experience: None Coding Level of Care Code Acute [facility] FLEX GIMENEZ note Diagnoses Closed compression fracture of L1 vertebra S32.010A
[2021-10-27] MEDS: methadone 10 mg Tablet 85 MG PO (10:23)
--- NOTE | 2021-10-27 10:33 | PC.NURSE ---
Attempted to call More at the pain clinic and no one answered [phone].
--- NOTE | 2021-10-27 10:34 | PC.SOCIAL ---
Pg 2 IMM Explained to pt Pg 2 IMM. No questions voiced. Provided pt a copy. Initialed, dated, & timed a copy & placed in chart.
--- NOTE | 2021-10-27 10:44 | PC.NURSE ---
Called Gricelda Kingsley nurse and updated them about change in Morphine 15 mg for 3 days from every 12 to every 8hrs
--- NOTE | 2021-10-27 11:16 | PC.NURSE ---
IV removed intact at this time. Patient tolerated well. Patient is A&Ox3. Respirations even and non-labored on room air. Reviewed discharge with patient at this time. Patient verbalized understanding of medications and follow up appointments. Patient is upset because I have made several attempts to call the Methadone clinic and update them that she will need her Methadone tomorrow but no one answers the phone. Will make another attempt to call them.
--- NOTE | 2021-10-27 11:23 | PC.NURSE ---
Called More at [facility] [phone]. updated her about patients medication changes.
== END 2021-10-27 11:30 | disposition home or self-care (01) | DRG 477 ==
LOC: ER 17:43 → MEDSURG 18:26
PROVIDERS: Emergency Medicine; Orthopaedic Surgery; Admitting Provider Internal Medicine; Emergency Provider Emergency Medicine; Visit Provider Family Medicine
PROC: 0QB03ZX Excision of Lumbar Vertebra, Percutaneous Approach, Diagnostic (ICD-10-PCS; principal; 2021-10-26 08:20)
DX: M48.56XA Collapsed vertebra, not elsewhere classified, lumbar region, initial encounter for fracture (principal); J18.9 Pneumonia, unspecified organism; C34.11 Malignant neoplasm of upper lobe, right bronchus or lung; C78.7 Secondary malignant neoplasm of liver and intrahepatic bile duct; F11.20 Opioid dependence, uncomplicated; F41.8 Other specified anxiety disorders; G89.29 Other chronic pain; K21.9 Gastro-esophageal reflux disease without esophagitis; F17.210 Nicotine dependence, cigarettes, uncomplicated; M48.061 Spinal stenosis, lumbar region without neurogenic claudication; J43.2 Centrilobular emphysema; Z95.828 Presence of other vascular implants and grafts; E04.1 Nontoxic single thyroid nodule; B18.2 Chronic viral hepatitis C; Z92.21 Personal history of antineoplastic chemotherapy; Z92.3 Personal history of irradiation; Z79.52 Long term (current) use of systemic steroids; Z79.51 Long term (current) use of inhaled steroids; G47.33 Obstructive sleep apnea (adult) (pediatric)
CPT/HCPCS: 36415; 36416; 71045; 71275; 72148; 74177; 76000; 80048; 80053; 81001; 82962; 83735; 83880; 84100; 84145; 85025; 85610; 85730; 86140; 86403; 87086; 87449; 88307; 88311; 93005; 94640; 96365; 96367; 96375; 97116; 97161; 99285; G0378; J0456; J0690; J0696; J1100; J1170; J1200; J1940; J2270; J2370; J2405; J2704; J2710; J3010; J3370; J3475; J3490; J7030; J7050; J7512; J7611; Q9967

== ENCOUNTER 2021-11-15 08:21 | Outpatient (RCR) | payer MEDICARE, MEDICAID, SELFPAY | END 2021-11-28 23:59 | disposition home or self-care (01) | LOC: ONCMED 08:21 | PROVIDERS: PCP Family Medicine; Visit Provider Internal Medicine Medical Oncology | DX: Z45.2 Encounter for adjustment and management of vascular access device (principal) | CPT/HCPCS: 96523 ==

== ENCOUNTER 2021-11-19 09:37 | Emergency (ER) | payer MEDICARE, MEDICAID, SELFPAY ==
[2021-11-19 09:42] VITALS: BP 90/72; PULSE 125; RESP 19; TEMP 36.9; O2SAT 97; BMI 18.6
--- NOTE | 2021-11-19 09:56 | ED_ITS ---
HPI - General Adult General: Chief complaint: General Medical Stated complaint: COUGHING UP BLOOD Time Seen by Provider: 11/19/21 09:56 History of Present Illness: HPI narrative: Ms. Thakkar is a 56-year-old lady with complex past medical history including hepatitis C, COPD with chronic hypoxic respiratory failure, and squamous lung cancer who has partially been treated with last immunotherapy in August 2021 after improved response from traditional chemotherapy who presents emergency department due to hemoptysis. She reports more or less being at her baseline health though she did have recent surgery about 1 month ago on her back. She at times notices swelling around her port and fullness in her chest with shortness of breath. This morning, without specific provoking factor she had multiple episodes of dark red blood that she coughed up. She estimates that this was about 2 cups worth. Since that time she has had mild correlating shortness of breath however no recurrence. Intensity of symptoms mild to moderate. No other specific changes in health, exacerbating, relieving factors identified. Onset (ago): hour(s) Severity: moderate Pain Consistency: constant Associated symptoms: Reports cough Review of Systems General: Reports: 10 or more systems reviewed and unremarkable except in HPI and below PFS ED PFSH: Medical History Anxiety and depression Chronic low back pain Gastroesophageal reflux disease with ulceration Hepatitis C Microscopic hematuria Surgical History H/O section H/O: hysterectomy Family History Other CAD (coronary artery disease) Cancer Diabetes Social History Smoking and tobacco status: current every day smoker cigarettes Years cigarettes smoked: 40 Quit status (tobacco): considering quitting Second hand smoke exposure: Yes Smoking risk assessment/counseling performed?: Yes Alcohol intake: former Former alcohol use details: 25 years Lives independently: Yes Household members: spouse Housing: House Marital status: Life Partner service: No Current occupational status: disabled Pets and animals: Yes History of recent travel: No Current gender identity: Female Special elida needs: No Physical Exam Const: COMMON NORMALS: alert GENERAL APPEARANCE: cooperative, anxious and ill appearing HENMT: COMMON NORMALS: normocephalic and atraumatic HEAD & SCALP: normocephalic and atraumatic THROAT: posterior oropharynx normal OTHER: No evidence of intraoral trauma to explain to bleeding. Eye: COMMON NORMALS: conjunctivae normal CONJUNCTIVA: Yes conjunctivae normal SCLERA: sclerae normal Neck/C-Spine: COMMON NORMALS: supple GENERAL: Yes trachea midline Resp: EFFORT & INSPECTION: Yes tachypneic AUSCULTATION: rhonchi lower bilaterally and diminished lung sounds on the right in the upper lung mota Cardio: COMMON NORMALS: regular rhythm RATE: tachycardic RHYTHM: regular rhythm OTHER: Normal peripheral perfusion. GI: COMMON NORMALS: Soft to palpation PALPATION: Yes Soft to palpation and No Tenderness to palpation present (GI) PERCUSSION: normal to percussion Back/Pelvis: OTHER: Surgical sutures from prior procedure present, no evidence of infection. Extremity: GENERAL: Yes normal exam except as noted and No edema OTHER: No peripheral edema Neuro: COMMON NORMALS: moves all extremities SENSORIUM/ORIENTATION: Yes alert and No Orientation impaired Psych: COMMON NORMALS: mental status grossly normal and Normal thought process present THOUGHT PROCESS: Normal thought process present Procedures Intubation Time out performed: Yes sedative: Etomidate Mg Given: 15 paralytic: Vecuronium Mg Given: 5 Laryngoscope: fiber optic video scope ET Tube Size: 7.5 ET Tube Uncuffed: No Tube Secured Depth (cm): 23 Tube Secured Location: teeth Tube Placement Confirmation: visualized tube passing through cords, equal breath sounds bilaterally, no breath sounds over epigastrium and confirmation by capnometry Patient Tolerated Procedure: well Intubation Complications: none Course ED course: - Patient was seen and evaluated by me at bedside - Patient placed on cardiac monitors, IV access obtained - Initial evaluation notable for ill appearance, anxious, tachycardic. -Fluids given - Labs notable for no leukocytosis. Hemoglobin 11.5. Metabolic panel without significant derangement requiring intervention at this time. COVID-negative. - Upon returning from CT scan I was called back to bedside. Patient had approximately 400 to 500 mL of hemoptysis bright red blood with active coughing. I discussed with the patient at that time recommendation for intubation. She was agreeable to intubation. She was tachycardic and more short of breath. - Patient was intubated as noted in procedure note mild transient desaturation to approximately 80%. Patient subsequently tachycardic and required significant sedation. - Upon reevaluation with sedation patient overall clinically appears improved, blood pressure on the lower end of normal however has not dropped significantly, tachycardia has improved. - ET tube in satisfactory position on chest x-ray. CTA negative for pulmonary embolism. - Repeat hemoglobin down to 10 however fairly minimal bloody secretions suctioned, will continue to trend. Given improvement in vital signs do not believe that empiric transfusion is needed at this moment. - Patient will require transfer as we do not currently have pulmonology for interventional procedures nor do we have interventional radiology if endovascular treatment is required - We will start calling outside hospitals for transfer. Plan to consult hospitalist service for critical care assistance and ventilator management if patient remains in the emergency department for significant amount of time. Given current situation with COVID it is possible that the patient will remain in the ED for days. - Discussed with Dr Wong at [facility] in [place] who will accept the patient to the ICU - Overall clinical appearance somewhat improved. Patient is requiring significant sedation still though appears more comfortable. Blood gas improved from initial 7.32/50.3/115 to 7.41/43.6/210. Will adjust FiO2. - Patient remains critically ill with massive hemoptysis and acute respiratory failure. - While waiting for bed assignment hemoglobin continues to downtrend to 8.8, still has mild to moderate bloody secretions suctioned from ET tube concerning for ongoing bleeding. Will transfuse 1 unit. At this time heart rate is improved though blood pressure remains soft though adequate MAP of 69 (87/60). Note: Click bubbles or prepopulated mota in note writing are used for assistance with data collection and billing and are inherently more limited than narrative and other text portions of this note. Please use narrative for additional clinical history and defer to narrative/free test for any case of contradictory information. If information appears in only free text or click bubble it should be considered present or absent as reported. Please contact note instructional writer for clarifications of clinical information or contradictory information. MDM is a brief summary, contradictory or erroneous seeming information should be clarified and full note should be reviewed. Vital Signs: Vital signs: Vital Signs Temperature 97.8 F 11/19/21 17:23 Pulse Rate 87 11/19/21 17:23 Respiratory Rate 17 11/19/21 17:23 Blood Pressure 96/64 11/19/21 17:23 Pulse Oximetry 100 11/19/21 17:23 MDM - General Adult MDM Narrative Medical decision making narrative: 56-year-old lady with significant past medical history of lung cancer presenting with hemoptysis at home. Relatively large volume described and the patient does have blood on sweatshirt and arms. Initially appeared stable enough for further evaluation however patient had recurrence of massive hemoptysis while in CT and required intubation. Transferred for definitive care including pulmonology and interventional radiology if clinically indicated. Patient transferred in critical condition. Medical Records Attestation: I reviewed the patient's medical records. Lab Data Attestation: I reviewed the patient's lab results. Result diagrams: 11/19/21 16:05 11/19/21 09:30 Labs: Lab Results 11/19/21 11/19/21 11/19/21 09:30 09:30 10:17 WBC 8.9 10^3/uL 10^3/uL (4.0-10.0) RBC 3.65 10^6/uL L 10^6/uL (4.1-5.3) Hgb 11.5 g/dL g/dL (11.5-15.3) Hct 35.0 % L % (37.0-47.0) MCV 95.9 fl fl (81-99) MCH 31.5 pg pg (28.0-34.0) MCHC 32.9 g/dL g/dL (30.0-36.0) RDW 13.6 % % (12.1-15.1) Plt Count 268 10^3/cmm 10^3/cmm (130-400) MPV 11.1 fL H fL (7.4-10.4) Neut % (Auto) 85.5 % % Lymph % (Auto) 9.4 % % [place] % (Auto) 3.9 % % Eos % (Auto) 0.4 % % Baso % (Auto) 0.4 % % Neut # (Auto) 7.60 10^3/uL 10^3/uL (1.8-7.7) Lymph # (Auto) 0.8 10^3/uL 10^3/uL (0.8-4.8) [place] # (Auto) 0.4 10^3/uL 10^3/uL (0.2-0.9) Eos # (Auto) 0.0 10^3/uL 10^3/uL (0.0-0.8) Baso # (Auto) 0.0 10^3/uL 10^3/uL (0.0-0.1) Nucleated RBC % (auto) 0 % % Nucleated RBCs # 0.0 /100WBC /100WBC Specimen Type Sample Site ABG pH ABG pCO2 ABG pO2 ABG HCO3 ABG Base Excess Ashwin Test Hematocrit Hgb O2 Saturation Carboxyhemoglobin Methemoglobin Total Hemoglobin O2 Delivery Device FiO2 PEEP Textile Slitting Machine Operator ID Blood Gas Notified Time Sodium 136 mmol/L mmol/L (136-145) Potassium 4.1 mmol/L mmol/L (3.5-5.1) Chloride 98 mmol/L mmol/L (98-107) Carbon Dioxide 21 mmol/L L mmol/L (22-29) Anion Gap 21.1 H (5-19) BUN 11 mg/dL mg/dL (6-20) Creatinine 0.5 mg/dL mg/dL (0.5-0.9) GFR Calculation 126.7 mL/min mL/min (90-130) Glucose 146 mg/dL H mg/dL (65-115) Calculated Osmolality 284 mOsm/kg L mOsm/kg (285-295) Lactic Acid Calcium 9.5 mg/dL mg/dL (8.5-10.5) Total Bilirubin 0.2 mg/dL mg/dL (0.15-1.2) AST 12 U/L U/L (0-32) ALT 8 U/L U/L (0-33) Alkaline Phosphatase 148 IU/L H IU/L (35-105) Total Protein 6.8 g/dL g/dL (6.6-8.7) Albumin 3.9 g/dL g/dL (3.5-5.2) Globulin 2.9 g/dL g/dL (1.3-4.6) Procalcitonin 0.06 ng/mL ng/mL (0-0.5) SARS-CoV-2 Ag (Rapid) Blood Type A Positive Rho(D) Type Positive Antibody Screen Negative Crossmatch See Detail 11/19/21 11/19/21 11/19/21 11:49 11:50 12:42 WBC RBC Hgb 10.0 g/dL L g/dL (11.5-15.3) Hct 34.9 % L % (37.0-47.0) MCV MCH MCHC RDW Plt Count MPV Neut % (Auto) Lymph % (Auto) [place] % (Auto) Eos % (Auto) Baso % (Auto) Neut # (Auto) Lymph # (Auto) [place] # (Auto) Eos # (Auto) Baso # (Auto) Nucleated RBC % (auto) Nucleated RBCs # Specimen Type Arterial Sample Site Radial, right ABG pH 7.32 L (7.35-7.45) ABG pCO2 50.3 mmHg H mmHg (35-45) ABG pO2 115.0 mmHg H mmHg (80.0-100.0) ABG HCO3 25.9 mmol/L mmol/L (22-26) ABG Base Excess -0.5 mmol/L mmol/L (-2.0-2.0) Ashwin Test Pos Hematocrit 31.1 % L % (37-47) Hgb O2 Saturation 95.4 % % (95-100) Carboxyhemoglobin 2.1 %THgb %THgb (0.4-20.1) Methemoglobin 0.9 % % (0.4-1.5) Total Hemoglobin 10.2 g/dL L g/dL (12-16) O2 Delivery Device Vent FiO2 100.0 % % PEEP 6.0 cmH20 cmH20 Textile Slitting Machine Operator ID Rc Blood Gas Notified Time Sodium Potassium Chloride Carbon Dioxide Anion Gap BUN Creatinine GFR Calculation Glucose Calculated Osmolality Lactic Acid Calcium Total Bilirubin AST ALT Alkaline Phosphatase Total Protein Albumin Globulin Procalcitonin SARS-CoV-2 Ag (Rapid) Negative (Negative) Blood Type Rho(D) Type Antibody Screen Crossmatch 11/19/21 11/19/21 11/19/21 14:00 16:05 16:05 WBC RBC Hgb 8.8 g/dL L g/dL (11.5-15.3) Hct 28.4 % L % (37.0-47.0) MCV MCH MCHC RDW Plt Count MPV Neut % (Auto) Lymph % (Auto) [place] % (Auto) Eos % (Auto) Baso % (Auto) Neut # (Auto) Lymph # (Auto) [place] # (Auto) Eos # (Auto) Baso # (Auto) Nucleated RBC % (auto) Nucleated RBCs # Specimen Type Arterial Sample Site Brachial,left ABG pH 7.41 (7.35-7.45) ABG pCO2 43.6 mmHg mmHg (35-45) ABG pO2 210.0 mmHg H mmHg (80.0-100.0) ABG HCO3 27.9 mmol/L H mmol/L (22-26) ABG Base Excess 3.0 mmol/L H mmol/L (-2.0-2.0) Ashwin Test N/a Hematocrit 27.1 % L % (37-47) Hgb O2 Saturation Carboxyhemoglobin Methemoglobin Total Hemoglobin O2 Delivery Device Vent FiO2 60.0 % % PEEP Textile Slitting Machine Operator ID Lewis Blood Gas Notified Time 1410 Sodium Potassium Chloride Carbon Dioxide Anion Gap BUN Creatinine GFR Calculation Glucose Calculated Osmolality Lactic Acid 1.1 mmol/L mmol/L (0.5-2.2) Calcium Total Bilirubin AST ALT Alkaline Phosphatase Total Protein Albumin Globulin Procalcitonin SARS-CoV-2 Ag (Rapid) Blood Type Rho(D) Type Antibody Screen Crossmatch Critical Care Time Critical Care Time: Critical Care Time: Yes Total Critical Care Time: 80 Attestation: Due to a high probability of clinically significant, possibly life threatening deterioration, the patient required my highest level of attention and preparedness to intervene emergently and I personally spent this critical care time directly and personally managing the patient. This critical care time included obtaining a history; examining the patient; pulse oximetry; ordering and review of laboratory and imaging studies; arranging urgent treatment with development of a management plan; evaluation of patient's response to treatment; frequent reassessment; and, discussions with other providers as applicable. It was exclusive of separately billable procedures. Discharge Plan Discharge Patient Disposition: Xfer Short-Term Hosp Clinical Impression: Massive hemoptysis, Acute and chronic respiratory failure with hypoxia, Acute blood loss anemia Prescriptions: No Action diphenhydramine HCl [Benadryl Allergy] 25 mg tablet 25 mg PO QID PRN (Reason: Allergy Symptoms) 0RF Zyrtec 10 mg capsule 10 mg PO DAILY 0RF omeprazole 20 mg capsule,delayed release(DR/EC) 20 mg PO DAILY 0RF methadone 40 mg tablet,soluble 90 mg PO DAILY 0RF ipratropium-albuterol 0.5 mg-3 mg(2.5 mg base)/3 mL solution for nebulization 3 ml inhalation Q4H PRN (Reason: wheezing) Qty: 180 3RF budesonide-formoterol [Symbicort] 160-4.5 mcg/actuation HFA aerosol inhaler 2 puff inhalation BID Qty: 30.6 3RF albuterol sulfate [Ventolin HFA] 90 mcg/actuation HFA aerosol inhaler 1 puff INHALATION QID PRN (Reason: shortness of breath or wheezing) 30 Days Qty: 8.5 0RF prednisone 10 mg tablet 10 mg PO DAILY 0RF lorazepam 0.5 mg tablet 0.5 mg PO DAILY MDD SEE PHARMACY COMMENT PRN (Reason: Nausea) 0RF mirtazapine 30 mg tablet 15 mg PO BEDTIME 0RF Rx Instructions: patient will need to be seen to have these filled again docusate sodium 100 mg Capsule 100 mg PO BID 30 Days Qty: 60 0RF Narcan 4 mg/actuation spray,non-aerosol 4 mg intranasal Q2M PRN (Reason: opioid overdose) Qty: 2 0RF Rx Instructions: spray 1 dose into ONE nostril; alternate nostrils w each dose until help arrives morphine 15 mg Tablet 15 mg PO TID MDD SEE PHARMACY COMMENT PRN (Reason: Pain) 0RF Referrals: Mallory Gutiérrez DO [Primary Care Provider] - Coding Level of Care Code ED Chief Of Production for Chg Fwd Exam Comprehensive
--- NOTE | 2021-11-19 09:57 | CTR_ITS ---
PROCEDURE INFORMATION: Exam: CTA Chest With Contrast Exam date and time: 11/19/2021 9:57 AM Age: 56 years old Clinical indication: Other: Cough up alot of blood; Patient HX: Lung CA; Additional info: Hemoptysis TECHNIQUE: Imaging protocol: Computed tomographic angiography of the chest with contrast. 3D rendering (Not supervised by radiologist): MIP and/or 3D reconstructed images were created by the technologist. Radiation optimization: All CT scans at this facility use at least one of these dose optimization techniques: automated exposure control; mA and/or kV adjustment per patient size (includes targeted exams where dose is matched to clinical indication); or iterative reconstruction. Contrast material: OMNI 350; Contrast volume: 68 ml; Contrast route: INTRAVENOUS (IV); COMPARISON: CT angio chest w abd pel w con 10/23/2021 1:17 PM RADIATION DOSE METRICS: Total DLP (mGy-cm): 518.51 FINDINGS: Tubes, catheters and devices: There is a right jugular port with the catheter tip in the superior vena cava. Pulmonary arteries: No sign of acute pulmonary embolism. Aorta: No thoracic aortic aneurysm or dissection. Lungs: There is volume loss, consolidation, and bronchiectasis affecting the right upper lobe. There is pulmonary opacification with bronchiectasis in the anteromedial right middle lobe. These changes are likely related to the patient's history of lung cancer. There is bilateral centrilobular emphysema. Pleural spaces: No pleural effusion or pneumothorax. Heart: The heart is not enlarged. No pericardial effusion. Lymph nodes: No pathologically enlarged lymph nodes. Bones/joints: Prior upper lumbar vertebral body compression injuries with subsequent augmentation. Soft tissues: No acute soft tissue abnormality. CT/CT angio chest PE protcl [id number] IMPRESSION: No sign of acute pulmonary embolism.
[2021-11-19 10:00] VITALS: BP 112/79; PULSE 105; RESP 18; O2SAT 100
[2021-11-19] MEDS: sodium chloride 0.9% 1,000 ML 999 ML IV ×2 (10:15→14:45)
[2021-11-19 10:17] LABS: Basophils % 0.4 %; Eosinophils % 0.4 %; Hemoglobin 11.5 g/dL (11.5-15.3); Lymphocytes # 0.8 10^3/uL (0.8-4.8); Lymphocytes % 9.4 %; Mean Corpuscular HGB Conc 32.9 g/dL (30.0-36.0); Mean Corpuscular Hemoglobin 31.5 pg (28.0-34.0); Mean Corpuscular Volume 95.9 fl (81-99); Mean Platelet Volume 11.1 fL (7.4-10.4); Monocytes # 0.4 10^3/uL (0.2-0.9); Monocytes % 3.9 %; Neutrophils % 85.5 %; Nucleated Red Blood Cells % 0 %; Platelet Count 268 10^3/cmm (130-400); Red Blood Count 3.65 10^6/uL (4.1-5.3); Red Cell Distribution Width 13.6 % (12.1-15.1); White Blood Count 8.9 10^3/uL (4.0-10.0)
[2021-11-19 10:24] LABS: Alanine Aminotransferase 8 U/L (0-33); Albumin Level 3.9 g/dL (3.5-5.2); Alkaline Phosphatase 148 IU/L (35-105); Blood Urea Nitrogen 11 mg/dL (6-20); Calcium 9.5 mg/dL (8.5-10.5); Carbon Dioxide 21 mmol/L (22-29); Chloride 98 mmol/L (98-107); Globulin 2.9 g/dL (1.3-4.6); Glomerular Filtration Rate 126.7 mL/min (90-130); Glucose 146 mg/dL (65-115); Osmolality Calculated 284 mOsm/kg (285-295); Sodium 136 mmol/L (136-145); Total Bilirubin 0.2 mg/dL (0.15-1.2); Total Protein 6.8 g/dL (6.6-8.7)
[2021-11-19 10:30] LABS: Anion Gap 21.1 (5-19); Aspartate Amino Transferase 12 U/L (0-32); Potassium 4.1 mmol/L (3.5-5.1)
[2021-11-19 10:31] LABS: Procalcitonin 0.06 ng/mL (0-0.5)
[2021-11-19] MEDS: iohexol 350 mg/mL 100 mL Btl IV (10:45)
--- NOTE | 2021-11-19 11:16 | XRR_ITS ---
PROCEDURE INFORMATION: Exam: XR Chest Exam date and time: 11/19/2021 11:16 AM Age: 56 years old Clinical indication: Device placement; Other: Et and ng placement; Additional info: Post intubation TECHNIQUE: Imaging protocol: XR of the chest. Views: 1 view. COMPARISON: CT angio chest PE protcl [id number] 11/19/2021 10:46 AM FINDINGS: Tubes, catheters and devices: There is an endotracheal tube with the tip 2.4 cm above the indira. There is an enteric tube extending down into the stomach. There is a right jugular port present with the catheter tip in the superior vena cava. Lungs: There is opacification of the right upper lung zone compatible with consolidation and volume loss affecting the right upper lobe. Pleural spaces: No pleural effusion or pneumothorax. Heart/Mediastinum: The cardiac silhouette is not enlarged. The mediastinum is shifted to the right compatible with volume loss in the right upper lobe. Bones/joints: Prior vertebral body compression injuries with subsequent augmentation in the upper lumbar spine. XR/XR chest 1V portable [id number] IMPRESSION: 1. Line and tubes as described. 2. Volume loss in the right upper lobe.
--- NOTE | 2021-11-19 11:19 | PC.NURSE ---
Pt returned to room after CT. CT called requesting Doctor and nurse. Pt coughing with christine red blood. Dr Mesa advised pt it would be in her best interest to intubate. RT in room, set up for intubation, suction and O2 ready. Verbal orders given for Etomidate 15 mg IVP and Vecuronium 5mg. At 11:10 Etomidate 15mg IVP 11:12 Vecuronium 5 mg IVP Intubation with 7.5 tube secured at [address] Mesa gave verbal order for Fentanyl 50 mcg. 18 NG tube placed in left nare.
[2021-11-19 11:30] VITALS: RESP 22; O2SAT 100
[2021-11-19] MEDS: fentaNYL 50 mcg/mL INJ 2mL IVP (11:30)
[2021-11-19 11:36] VITALS: RESP 16
[2021-11-19] MEDS: propofol 1,000 MG/100 ML INJ 1.43 MG IV (11:42)
[2021-11-19] MEDS: midazolam 1 mg/mL INJ 2 mL 2 MG IVP (11:56)
[2021-11-19 12:00] LABS: ABG PCO2 50.3 mmHg (35-45); ABG PH Result 7.32 (7.35-7.45); Arterial Blood Gas Hematocrit 31.1 % (37-47); Base Excess ABG -0.5 mmol/L (-2.0-2.0); Blood Gas Allen Test Pos; Blood Gas Operator Identificat RC; Blood Gas Sample Site Radial, right; Blood Gas Sample Type Arterial; Carboxyhemoglobin 2.1 %THgb (0.4-20.1); HCO3 ABG 25.9 mmol/L (22-26); HGB O2 Sat 95.4 % (95-100); Methemoglobin 0.9 % (0.4-1.5); Oxygen Device VENT; Total Hemoglobin 10.2 g/dL (12-16)
[2021-11-19 12:15] LABS: SARS Covid-2 Antigen Negative (Negative)
--- NOTE | 2021-11-19 12:20 | PC.NURSE ---
notified dr. lutz of max infusion rate of both fentanyl and propofol he verbalized understanding and stated he would place midazolam drip order.
--- NOTE | 2021-11-19 12:20 | PC.PHAR ---
PT UNABLE TO VERIFY HOME MEDS DUE TO INTUBATION - CONTACTED EL DIAZ FROM PT'S CONTACT LIST - EL STATES HE IS HER NEIGHBOR AND CLOSE FRIEND - STATES SHE DOES HER MEDICATIONS HERSELF AND TO CONTACT [facility] ([facility]), LIVES [place] OF TOWN, FOR MEDICAL UPDATES. METHADONE 90 MG ONCE DAILY ENTERED ON MED LIST, BUT UNABLE TO VERIFY DUE TO METHADONE CLINIC BEING CLOSED ON 11/19/21. MORPHINE SULFATE 15MG TID PRN PAIN FILLED ON 11/15/21 X 30 DAYS AT [facility].
[2021-11-19 12:46] LABS: Hematocrit 34.9 % (37.0-47.0)
[2021-11-19 13:52] VITALS: RESP 16
--- NOTE | 2021-11-19 14:41 | PM.CONSULT ---
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 He was discharged in September when she was admitted for evaluation and management of hemoptysis and worsening cough, she was discharged home, her hemoglobin remained stable. She was discharged on Tessalon Perles and doxycycline. She also had pathological L1 fracture, status post L1, L2 kyphoplasty, spine metastases radiofrequency ablation She was intubated by the ER physician for massive hemoptysis, as per the report she was experiencing 2 cups full of blood with hemoptysis, as well as she was sent to the CT scan he started getting worse and seen was made to intubate her. Currently she is intubated and sedated currently on 3 sedative agents propofol at 50, Versed at 6 and fentanyl 200, at the time of evaluation she looks very calm her peak pressure is low, tidal volume 380, PEEP 5 FiO2 35%, she looks calm however facial grimacing noticed on painful stimuli. Blood pressure adequate, I have requested ER physician to get a central line in case she would require vasopressors. Currently arrangements are being made to transfer her outside facility for intervention radiology Labs reviewed She has endotracheal tube size 7.5 secured at lip by 24 cm, tidal volume 380, PEEP 5, FiO2 35% Hemoglobin 10 Hemodynamically stable, mild respiratory acidosis on ABG, FiO2 adjusted for hyperxemia Review of Systems General: Reports: ROS unobtainable due to endotracheal tube Medications/Allergies Home Medications Medication Instructions Recorded Confirmed Last Taken Type methadone 40 mg soluble tablet 90 mg PO DAILY tab 04/07/20 11/19/21 10/22/21 History cetirizine 10 mg capsule 10 mg PO DAILY 10/28/20 11/19/21 03/07/21 History diphenhydramine HCl 25 mg tablet 25 mg PO QID PRN 10/28/20 11/19/21 03/07/21 History omeprazole 20 mg capsule,delayed 20 mg PO DAILY 10/28/20 11/19/21 10/22/21 History release ipratropium 0.5 mg-albuterol 3 mg 3 ml INHALATION Q4H PRN #180 ml 02/01/21 11/19/21 03/08/21 Rx (2.5 mg base)/3 mL nebulization soln budesonide-formoterol HFA 160 2 puff INHALATION BID #30.6 g 03/21/21 11/19/21 10/22/21 Rx mcg-4.5 mcg/actuation aerosol inhaler lorazepam 0.5 mg PO DAILY PRN MDD SEE 10/23/21 11/19/21 Unknown History PHARMACY COMMENT mirtazapine 15 mg PO BEDTIME 10/23/21 11/19/21 10/22/21 History prednisone 10 mg PO DAILY 10/23/21 11/19/21 10/23/21 History docusate sodium 100 mg PO BID 30 Days #60 cap 10/27/21 11/19/21 Unknown Rx naloxone [Narcan] 4 mg INTRANASAL Q2M PRN #2 ea 10/27/21 11/19/21 Unknown Rx albuterol sulfate 90 mcg/actuation 1 puff INHALATION QID PRN 30 Days 11/14/21 11/19/21 Unknown Rx aerosol inhaler #8.5 g morphine 15 mg PO TID PRN MDD SEE PHARMACY 11/19/21 11/19/21 Unknown History COMMENT Allergies Allergy/AdvReac Type Severity Reaction Status Date / Time latex Allergy itching Verified 11/19/21 09:42 azithromycin [From Zithromax] AdvReac Mild unknown Verified 11/19/21 09:42 nalbuphine [From Nubain] AdvReac Mild hives Verified 11/19/21 09:42 Sulfa (Sulfonamide AdvReac Mild unknown Verified 11/19/21 09:42 Antibiotics) Current Medications Generic Name Dose Route Start Last Admin Trade Name Freq PRN Reason Stop Dose Admin Fentanyl 2,500 mcg/ Sodium 250 mls @ 0 mls/hr 11/19/21 11:00 11/19/21 11:50 Chloride IV 200 mcg/hr .Q0M TANVI 20 mls/hr Titration Protocol Per Protocol Propofol 1,000 mg in 100 mls @ 0 mls/hr 11/19/21 11:00 11/19/21 11:56 Diprivan IV 50 mcg/kg/min .Q0M TANVI 14.29 mls/hr Titration Protocol Per Protocol Midazolam HCl 100 mg/ Sodium 100 mls @ 0 mls/hr 11/19/21 12:30 11/19/21 13:30 Chloride IV 5 mg/hr .Q0M TANVI 5 mls/hr Titration Protocol Per Protocol PFSH Acute PFSH: Medical History Anxiety and depression Chronic low back pain Gastroesophageal reflux disease with ulceration Hepatitis C Microscopic hematuria Surgical History H/O section H/O: hysterectomy Family History Other CAD (coronary artery disease) Cancer Diabetes Social History Smoking and tobacco status: current every day smoker cigarettes Years cigarettes smoked: 40 Quit status (tobacco): considering quitting Second hand smoke exposure: Yes Smoking risk assessment/counseling performed?: Yes Alcohol intake: former Former alcohol use details: 25 years Lives independently: Yes Household members: spouse Housing: House Marital status: Life Partner service: No Current occupational status: disabled Pets and animals: Yes History of recent travel: No Current gender identity: Female Special elida needs: No Vitals/I&O/Wt Last Vital Signs Temp 98.5 F 11/19/21 09:42 Pulse 105 H 11/19/21 10:00 Resp 16 11/19/21 13:52 BP 112/79 11/19/21 10:00 Pulse Ox 100 11/19/21 11:30 11/18/21 11/19/21 11/19/21 22:59 06:59 14:59 Intake Total 3.893 / 3.893 Balance 3.893 / 3.893 Weight last 48 hrs Weight 47.627 kg Physical Exam Narrative: EXAM NARRATIVE: Young female Currently intubated and sedated Facial grimacing to painful stimuli Euvolemic Dried blood noticed around extremities and hospital gown Soft flat abdomen No signs of edema Neuro exam limited Assisted bilateral breath sounds Urinary Catheter Management^: Treviño: Cath Placed During This Visit: yes Urinary Catheter Date of Insertion: 11/19/21 Urinary Catheter Time of Insertion: 13:14 A&P Assessment and plan (1) Methadone dependence: Status: Acute (2) Obstructive sleep apnea: Status: Acute (3) Massive hemoptysis: Status: Acute (4) Chronic low back pain: Status: Acute Qualifiers: Back pain laterality: unspecified Sciatica presence: unspecified whether sciatica present Qualified Code(s): M54.5 - Low back pain; G89.29 - Other chronic pain (5) Mass of right lung: Status: Acute Additional A&P Information Massive hemoptysis Patient intubated and sedated Check H&H again Currently on minimal vent settings On 3 sedative agents I will add Zosyn for possible aspiration Avoid methadone to avoid torsade and QT prolongation with 3 sedative agents If needed can use IV push of Dilaudid to keep her calm Keep an eye on blood pressure, she will need central line placement Transfer to outside facility once accepted for interventional radiology N.p.o. DVT prophylaxis contraindicated She is afebrile, does not have typical neuroleptic malignant syndrome presentation(she was given fentanyl and Versed for intubation along 2 L normal saline and Protonix) Full code Consult Attestations Medical Necessity Statement: Awaiting transfer Time Spent in Patient Care: 16 - 35 minutes Coding Level of Care Code Acute Material Handling Supervisor for [facility] Fwd Diagnoses Methadone dependence F11.20 Obstructive sleep apnea G47.33 Massive hemoptysis R04.2 Chronic low back pain M54.5; G89.29 Back pain laterality: unspecified Sciatica presence: unspecified whether sciatica present Mass of right lung R91.8
[2021-11-19] MEDS: pantoprazole 40 mg SDV 80 MG IVP (14:43)
[2021-11-19] MEDS: dexmedeTOMIDine 0.9 % NaCL 400 MCG/100 ML PREMIX IV (15:32)
[2021-11-19 16:24] LABS: Hematocrit 28.4 % (37.0-47.0); Hemoglobin 8.8 g/dL (11.5-15.3)
[2021-11-19 16:43] LABS: Lactic Sepsis W/Reflex 1.1 mmol/L (0.5-2.2)
[2021-11-19 17:23] VITALS: BP 96/64; PULSE 87; RESP 17; TEMP 36.6; O2SAT 100
--- NOTE | 2021-11-19 17:27 | PC.NURSE ---
PROVIDED BLOOD TO FLIGHT CREW PER DIRECTION OF [employer]ER ASHLIE.
[2021-11-20 04:31] LABS: ABG PH Result 7.41 (7.35-7.45)
[2021-11-20 04:32] LABS: ABG PCO2 43.6 mmHg (35-45); HCO3 ABG 27.9 mmol/L (22-26); Oxygen Device VENT
[2021-11-20 04:33] LABS: Arterial Blood Gas Hematocrit 27.1 % (37-47); Blood Gas CCRB Time 1410; Blood Gas Sample Type Arterial
== END 2021-11-19 19:10 | disposition short-term general hospital (02) ==
PROVIDERS: Emergency Provider Emergency Medicine; PCP Family Medicine
DX: R04.2 Hemoptysis (principal); J96.21 Acute and chronic respiratory failure with hypoxia; D62 Acute posthemorrhagic anemia; Z79.891 Long term (current) use of opiate analgesic; Z86.19 Personal history of other infectious and parasitic diseases; F17.210 Nicotine dependence, cigarettes, uncomplicated; J44.9 Chronic obstructive pulmonary disease, unspecified; Z85.118 Personal history of other malignant neoplasm of bronchus and lung; Z92.21 Personal history of antineoplastic chemotherapy; Z20.822 Contact with and (suspected) exposure to COVID-19
CPT/HCPCS: 31500; 36415; 36600; 51702; 71045; 71275; 80053; 82803; 82805; 83605; 84145; 85014; 85018; 85025; 86850; 86900; 86920; 87040; 87426; 94002; 94799; 96365; 96366; 96367; 96375; 99291; 99292; C9113; J2250; J2704; J3010; J7030; J7050; P9040; Q9967